=== PATIENT | female | born 1945 | race Caucasian/White ===

== ENCOUNTER 2024-09-10 08:04 | Outpatient (RCR) | payer MEDICARE, SELFPAY ==
[2024-09-10 08:50] VITALS: BP 114/57
[2024-09-10] MEDS: NSS 500 IV (09:00)
[2024-09-10 14:45] VITALS: BP 120/46
== END 2024-09-11 09:49 | disposition home or self-care (01) ==
LOC: OID 08:04
PROVIDERS: ATTENDING PHYSICIAN Nurse Practitioner Adult Health; FAMILY PHYSICIAN Internal Medicine
DX: I35.0 Nonrheumatic aortic (valve) stenosis (principal)
CPT/HCPCS: 75572; 96360; 96361; Q9967

== ENCOUNTER 2024-10-08 07:40 | Outpatient (RCR) | payer MEDICARE, BC, SELFPAY ==
[2024-10-08 08:00] VITALS: BP 116/61
[2024-10-08] MEDS: NSS 500 IV (08:19)
== END 2024-10-09 08:15 | disposition home or self-care (01) ==
LOC: OID 07:40
PROVIDERS: ATTENDING PHYSICIAN Nurse Practitioner Adult Health; FAMILY PHYSICIAN Internal Medicine
DX: I35.0 Nonrheumatic aortic (valve) stenosis (principal)
CPT/HCPCS: 74174; 96360; 96361; Q9967

== ENCOUNTER 2024-10-15 07:09 | Day surgery (SDC) | payer MEDICARE, BC, SELFPAY ==
[2024-10-15] VITALS (20 sets, daily range): BP systolic 111–150; BP diastolic 54–103; BMI 24.6
[2024-10-15 08:03] LABS: Glucose - Point of Care 320 mg/dl (70-99)
[2024-10-15] MEDS: NSS 189 ML IV (08:16)
[2024-10-15 08:55] LABS: Hematocrit 35.6 % (37.0-47.0); Hemoglobin 10.1 g/dL (12.0-16.0); Mean Corp Hgb Conc. 28.4 g/dL (33.0-37.0); Mean Corpuscular Hgb 25.4 pg (27.0-31.0); Mean Corpuscular Volume 89.4 fL (81.0-99.0); Red Blood Cell Count 3.98 10^6/uL (4.20-5.40); Red Cell Dist. Width 20.2 % (11.5-14.5); White Blood Cell Count 4.5 10^3/uL (4.8-10.8)
[2024-10-15 09:25] LABS: Platelet Count 79 10^3/uL (130-400)
--- NOTE | 2024-10-15 11:24 | ITS.CL.CATH ---
[employer] - Catheterization
Cardiac Catheterization
Procedure Report:
CARDIAC CATHETERIZATION REPORT
Date of Procedure: 10/15/2024
Referring: Benjy Cosby D.O.
Indication: Known coronary artery disease, severe low-flow, low gradient aortic valve stenosis, pre-TAVR.
PROCEDURE:
1. Right heart catheterization.
2. Coronary angiography.
3. Bypass angiography.
A total of 33 minutes of procedural/moderate sedation was utilized. An independent medical manager was present to assist with and help manage the patient's level of consciousness and physiologic status.
ACCESS:
1. 6 Burkinan left radial artery using a modified Seldinger technique under ultrasound guidance. Ultrasound image obtained.
2. 5 Burkinan left antecubital vein using a modified Seldinger technique under ultrasound guidance. Ultrasound image obtained.
3. 6 Burkinan right common femoral artery using a modified Seldinger technique with a micropuncture kit under ultrasound guidance. Ultrasound image obtained.
CATHETERS:
1. 5 Burkinan balloon wedge.
2. 5 Burkinan NICOLE.
3. 5 Burkinan JL 4.
4. 5 Burkinan JR4.
HEMODYNAMIC DATA
Weight (kg): 62.6
AO (s/d/x, mmHg): 123/60/87
LV (s/x, mmHg): Not obtained.
PCWP (a/v/x, mmHg): 25/28/21
PA (s/d/x, mmHg): 46/27/33
RV (s/x, mmHg): 46/12
RA (a/v/x, mmHg): 16//12
SVC SvO2 (%): 52.1
IVC SvO2 (%): Not obtained.
RA SvO2 (%): Not obtained.
RV SvO2 (%): Not obtained.
PA SvO2 (%): 50.4
SaO2 (%): 87.8
Hbg (g/dL): 9.2
LUCIA
CO (L/min): 3.31
CI (L/min/m2): 2.00
Thermodilution
CO (L/min): Not performed.
CI (L/min/m2): Not performed.
TPG (mmHg): 12
PVR (Ramirez Units): 3.63
SVR (dynes*seconds*cm^-5): 1813
AVO2 Diff (Volume %): 4.68
AV gradient (x, mmHg): Not obtained.
AV area (cm2): Not obtained.
MV gradient (x, mmHg): Not obtained.
MV area (cm2): Not obtained.
LEFT VENTRICULOGRAPHY: Not performed.
AORTOGRAPHY: Not performed.
CORONARY ANGIOGRAPHY
Dominance: Right.
Left Main: Normal size, bifurcating vessel. There is a distal 70% lesion, immediately proximal to the bifurcation into the LAD and circumflex.
LAD: Normal size vessel giving rise to 2 diagonals. D1 is a large vessel, D2 is a relatively small vessel. There is a hazy, 80% lesion in the mid LAD, immediately proximal to the origin of D2. Competitive flow is visible in the distal LAD and
in the first diagonal.
Ramus: Congenitally absent.
Circumflex: Relatively small, nondominant vessel that gives rise to 1 obtuse marginal arising high off of the circumflex. There is an 80-90% lesion in the ostium of the circumflex. Competitive flow is seen in the obtuse marginal.
RCA: Normal size, dominant vessel. The vessel is chronically totally occluded in its midportion.
BYPASS GRAFT ANGIOGRAPHY
RIZVI to LAD: Normal size graft with end-to-side anastomosis to the mid LAD. There is no evidence of stenosis or graft degeneration.
SVG to D1: Normal size graft with end-to-side anastomosis to the large first diagonal. A patent stent is visible in the ostium of the graft. There is no evidence of further stenosis or graft degeneration.
SVG to OM1: Normal size graft with end-to-side anastomosis to the first obtuse marginal. A patent stent is visible in the ostium of the graft. There is no evidence of further stenosis or graft degeneration.
INTERVENTIONS
None.
Closure Device: Vascular band for the left radial artery, manual pressure for the left antecubital vein and the right common femoral artery.
Radiation dose (mGy): 535.70
DAP (cm2.Gy): 43.3784
Fluoroscopy time (minutes): 4.7
CONCLUSIONS:
1. Right dominant circulation with chronic total occlusion of the mid RCA, a 70% lesion in the distal left main coronary artery, and 80% lesion in the mid LAD and an 80-90% lesion in the ostium of the circumflex, status post prior bypass (patent
RIZVI to LAD, patent SVG to D1, patent SVG to OM1) with prior PCI in the ostium of both vein grafts and no ISR.
2. Moderately elevated filling pressures (PCWP = 21 mmHg at 62.6 kg), likely appropriate given patient's known LV dysfunction.
3. Severe left radial artery calcification and spasm making cardiac catheterization through the left radial artery and possible.
4. Severe low-flow, low gradient with limited myocardial reserve from prior dobutamine challenge.
RECOMMENDATIONS:
1. Expectant management after cardiac catheterization via left radial/antecubital and right common femoral approach.
2. Limited weight bearing on the left wrist for one week.
3. TAVR workup.
Copy to: Benjy Cosby D.O., Adarsh Campbell M.D.
Paxton Ponce DO, FACC, FACP
[2024-10-15 12:03] LABS: ACT-LR - POC 297 Seconds (116-155)
[2024-10-15] MEDS: NOVOLOG vial 4 UNITS SC ×2 (12:37→18:22)
[2024-10-15 12:43] LABS: Glucose - Point of Care 292 mg/dl (70-99)
[2024-10-15 12:52] LABS: ACT-LR - POC 276 Seconds (116-155)
[2024-10-15 13:47] LABS: Glucose - Point of Care 266 mg/dl (70-99)
[2024-10-15 13:49] LABS: ACT-LR - POC 213 Seconds (116-155)
--- NOTE | 2024-10-15 14:34 | PTCARENOTE ---
pt still oozing from rt groin femoral artery sheath insertion site , as well as left brachial veinous site. Kaela lewis lithographic proofer states if no hematoma occurs continue to watch site. left radilal artery dressing site intact. still waiting for ACT to come
below 180 to be pulled per dr. felipe. oozing is to be expected with hi ACT
[2024-10-15 14:49] LABS: ACT-LR - POC 171 Seconds (116-155)
[2024-10-15 14:49] LABS: Glucose - Point of Care 254 mg/dl (70-99)
[2024-10-15] MEDS: NOVOLOG vial 2 UNITS SC (16:08)
[2024-10-15 16:19] LABS: Glucose - Point of Care 236 mg/dl (70-99)
--- NOTE | 2024-10-15 16:30 | PTCARENOTE ---
Vital signs obtained prior to 1624 can not be verified by this user.
[2024-10-15 18:26] LABS: Glucose - Point of Care 286 mg/dl (70-99)
== END 2024-10-15 18:40 | disposition home or self-care (01) ==
LOC: CATH 07:09
PROVIDERS: Nurse Practitioner; ATTENDING PHYSICIAN Internal Medicine Cardiovascular Disease; FAMILY PHYSICIAN Internal Medicine; OTHER PHYSICIAN Student in an Organized Health Care Education/Training Program
DX: I08.3 Combined rheumatic disorders of mitral, aortic and tricuspid valves (principal); I25.10 Atherosclerotic heart disease of native coronary artery without angina pectoris; I25.82 Chronic total occlusion of coronary artery; I11.0 Hypertensive heart disease with heart failure; I50.22 Chronic systolic (congestive) heart failure; E78.5 Hyperlipidemia, unspecified; E11.9 Type 2 diabetes mellitus without complications; I27.20 Pulmonary hypertension, unspecified; Z95.5 Presence of coronary angioplasty implant and graft; Z79.82 Long term (current) use of aspirin; Z79.01 Long term (current) use of anticoagulants; Z79.84 Long term (current) use of oral hypoglycemic drugs; Z79.4 Long term (current) use of insulin
CPT/HCPCS: 99152; 99153; C1769; C1894; 82962; 85027; 93306; 93461; Q9967

== ENCOUNTER → 2024-10-29 14:26 | Outpatient (REF) | payer MEDICARE, BC, SELFPAY | LOC: RAD 14:26 | PROVIDERS: ATTENDING PHYSICIAN Nurse Practitioner Adult Health | DX: M79.602 Pain in left arm (principal) | CPT/HCPCS: 93926 ==

== ENCOUNTER 2024-11-07 11:45 | Inpatient (IN) | payer MEDICARE, BC, SELFPAY ==
[2024-10-29 12:03] VITALS: BMI 25.6
[2024-10-29 13:01] LABS: Urine Albumin 1+ (Neg - Trace); Urine Bilirubin Negative (Negative); Urine Character Clear (Clear); Urine Color Yellow; Urine Glucose 4+ (Negative); Urine Ketone Negative (Negative); Urine Leukocyte 2+ (Negative); Urine Nitrite Positive (Negative); Urine Occult Blood Negative (Negative); Urine Urobilinogen Negative (Neg - 1+)
[2024-10-29 13:09] LABS: Hemoglobin 8.6 g/dL (12.0-16.0); Mean Corp Hgb Conc. 27.7 g/dL (33.0-37.0); Mean Corpuscular Hgb 24.4 pg (27.0-31.0); Mean Corpuscular Volume 88.1 fL (81.0-99.0); Mean Platelet Volume 10.9 fL (7.4-10.4); Platelet Count 104 10^3/uL (130-400); Red Blood Cell Count 3.52 10^6/uL (4.20-5.40)
[2024-10-29 13:10] LABS: INR 1.13; PT 14.8 Sec (11.4-14.6)
[2024-10-29 13:11] LABS: APTT 29.8 Sec (23.4-35.0)
[2024-10-29 13:14] LABS: Urine Bacteria Moderate (Negative); Urine Red Blood Cell 0-2 /HPF (0-2); Urine Squamous Cell >30 /LPF (Few); Urine White Cell 21-25 /HPF (0-5)
[2024-10-29 13:30] LABS: % Eosinophils 0.5 % (0-6); % Immature Granulocytes 3.3 % (0-0.5); % Lymphocytes 15.3 % (20.5-51.1); % Neutrophils 69.9 % (42.2-75.2); Absolute Immature Granulocytes 0.1 10^3/uL (0-0.05); Absolute Lymphocytes 0.6 10^3/uL (1.2-3.4); Absolute Monocytes 0.4 10^3/uL (0.1-0.6); Absolute Neutrophils 2.8 10^3/uL (1.4-6.5)
[2024-10-29 13:34] LABS: Glycohemoglobin (HgbA1c) 6.8 % (4.0-5.6)
[2024-10-29 13:43] LABS: NT-proBNP 13900 pg/ml
[2024-10-29 14:14] LABS: ALT (SGPT) 13 U/L (0-35); AST (SGOT) 20 U/L (14-36); Albumin 3.9 g/dl (3.5-5.0); Alkaline Phosphatase 75 U/L (38-126); Blood Urea Nitrogen 46 mg/dl (7-17); Calcium 9.4 mg/dl (8.4-10.2); Carbon Dioxide 39 mmol/L (22-30); Chloride 90 mmol/L (98-107); Direct Bilirubin 0.4 mg/dl (0.0-0.4); Estimated Creatinine Clearance 21 ml/min; Glucose 171 mg/dl (70-99); Sodium 136 mmol/L (135-145); Total Bilirubin 0.9 mg/dl (0.2-1.3); Total Protein 6.2 g/dl (6.3-8.2); eGFR 26.53
--- NOTE | 2024-10-29 14:31 | CM ---
Chart reviewed. Met with the patient and her in PAT. Patient is independent of ADLS, lives with her in a 2 STH, 5 TORSTEN, ambulates with a RW in the house but uses a wheelchair outside the house. Patient has used [facility] in the past,
but is not current. Reviewed preoperative and postoperative instructions and restriction, along with showering guidelines. Gave patient 2 soaps. Patient is agreeable to a home visit by CT Transitional RN. Plan is for the patient to return home
with CT Transitional RN.
--- NOTE | 2024-10-29 14:43 | HPS.HSE ---
Family Physician
-
Family Physician: Adarsh Campbell
Cardiology: Benjy Cosby
Chief Complaint
-
Pre-operative history and physical for TAVR 11/08/2024
History of Present Illness
Kenya Eubanks is a very pleasant 79-year-old female with known progressive aortic valve stenosis and previous cardiac surgery. Her most recent echocardiogram 10/15/2024 demonstrated a peak/mean gradient of 50/28 mmHg. ABRIL was calculated to be 0.57
and peak velocity was 3.53 m/s in the setting of severely reduced left ventricular ejection fraction of 24% with dilated dimensions in the end-diastolic/end-systolic of 5.8/5.2 cm, respectively. She is status post CABG performed on 09/05/2020 that
included CABG x 3 with RIZVI to LAD, SVG to D1, SVG to ramus intermedius. She had a left heart catheterization from 07/16/2024 revealed SVG to first diagonal has 95% ostial stenosis coronary disease with successful PCI with 3.25 x 12 mm Xience MICAELA.
An invasive mean gradient was not documented. On 10/15/2024 a repeat cath was done which demonstrated -->Right dominant circulation with chronic total occlusion of the mid RCA, a 70% lesion in the distal left main coronary artery, and 80% lesion in
the mid LAD and an 80-90% lesion in the ostium of the circumflex, status post prior bypass (patent RIZVI to LAD, patent SVG to D1, patent SVG to OM1) with prior PCI in the ostium of both vein grafts and no ISR. From a symptomatology standpoint, she
describes fatigue, HARPER, LE edema. In comparison to 1 year ago, she feels worse, her was present and he tells me since May her legs have become edematous and she is not as mobile. Functionally, she requires a walker to get around the
house, and only really goes from the living room to the kitchen. She has significant comorbidities including ischemic cardiomyopathy with prior EF listed in our notes here of 30 to 35%(currently with life vest), COPD, morbidly obese (mostly around
her hips), mitral valve insufficiency and prior NSTEMI.
At evaluation today she feels about the same. She denies chest pain, palpitations, orthopnea or PND. She feels her lower extremity edema is improved since resuming her metolazone. Her HARPER is about the same. She continues to be followed at [facility]
for her lung cancer. We reviewed the risks of TAVR including PPM, bleeding and stroke. Reviewed premedication for her contrast allergy prior to her TAVR on 11/08. She will take first dose of prednisone 50mg at 2100 on 11/07, her second dose will be at
3am on 11/08 and then she will receive her last dose and Benadryl 50mg industrial controller to the cardiac bottle labeler. She is aware she will receive a call on Tue. to confirm arrival time and review instructions. Will plan for a 0730 arrival time.
Medical History
Past Medical History
Past Medical History: Reports CAD, Cancer (Lung cancer-currently being followed at [facility] ), CHF, COPD, HTN, Hypercholesterolemia, Hypothyroidism, NIDDM, CT, Valvular Disease (severe , mild MR, severe TR) and Other (ischemic cardiomyopathy,
gout, neuropathy, CKD, Anemia, Pancytopenia, myelodysplastic syndrome, h/o subarachnoid hemorrhage)
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
Social History
Tobacco: Former Smoker
Alcohol: None
Personal:
Living: With Family
Family History
Family History: Not pertinent
Allergies / Home Medications
Allergies reflects when Allergies were last updated in [employer].
Home Medications with original date entered in [employer]
Allergy/Medication List:
Allergies:
Iodinated contrast
Levetiracetam
Morphine
Medications:
Allopurinol 100 MG Tablet 1 tablet Orally Once a day
Aranesp (Alb Free) SureClick 500 MCG/ML Solution as directed Injection 1 every 3 weeks
Aranesp (Albumin Free)(Darbepoetin Arnulfo) 500 MCG/ML Solution Prefilled Syringe 1 mL Injection
Ascorbic Acid 1000 MG Tablet 1 tablet Orally Once a day
Aspirin 81(Aspirin) 81 MG Tablet Delayed Release 1 tablet Orally Once a day
Atorvastatin Calcium 40 MG Tablet take 1 tablet by mouth once daily
Calcium 600 MG Tablet 1 tablet with meals Orally Twice a day
Clopidogrel Bisulfate 75 MG Tablet take 1 tablet by mouth once daily
Cyanocobalamin 500 MCG Tablet 1 tablet Orally Once a day
Dorzolamide HCl 2 % Solution 1 drop into affected eye Ophthalmic Three times a day
Durezol 0.05 % Emulsion 1 drop into affected eye Ophthalmic Twice a day
Furosemide 80 MG Tablet 1 tablet Orally Once a day
glipiZIDE ER 2.5 MG Tablet Extended Release 24 Hour 1 tablet with breakfast Orally Once a day
Glucosamine 500 MG Capsule 1 capsule with a meal Orally Twice a Day
Glucosamine-Chondroitin 750-600 MG Tablet as directed Orally
Januvia(SITagliptin Phosphate) 100 MG Tablet 1 tablet Orally Once a day
Jardiance(Empagliflozin) 10 MG Tablet 1 tablet Orally Once a day
Ketorolac Tromethamine 0.5 % Solution 1 drop into affected eye as needed Ophthalmic Twice a Day
Lantus(Insulin Glargine) 100 UNIT/ML Solution as directed Subcutaneous 8 units a day
metOLazone 2.5 MG Tablet 1 tablet Orally Two times a Week
Metoprolol Succinate ER 50 MG Tablet Extended Release 24 Hour take 1 tablet by mouth once daily
Nitroglycerin 0.4 MG Tablet Sublingual as directed Sublingual
Pantoprazole Sodium 40 MG Tablet Delayed Release take 1 tablet by mouth once daily
Potassium Chloride ER 10 MEQ Tablet Extended Release 1 tablet with food Orally Take 1 pill once daily only on days when use furosemide.
Reblozyl(Luspatercept-aamt) 25 MG Solution Reconstituted as directed Subcutaneous , Notes to Pharmacist: 84 mg q three weeks
Senokot S(Sennosides-Docusate Sodium) 8.6-50 MG Tablet 1 tablet in the evening as needed Orally Once a day
Synthroid(Levothyroxine Sodium) 50 MCG Tablet 1 tablet in the morning on an empty stomach Orally Once a Day
Vit N67-Nbzsiznwnx-Lnll-Ljxf
Vitamin C 1000 MG Tablet 1 tablet Orally Once a day
Vitamin D (Cholecalciferol) 5000 IU po daily
Vitamin D3 125 MCG (5000 UT) Tablet as directed Orally Once a day
Vitamin E 400 UNIT Capsule 1 capsule Orally Once a day
Zinc 25 MG Tablet 1 tablet Orally Once a day
Review of Systems
-
History Source: Patient
Constitutional: Reports Weight Loss (since restarting metolazone) and Fatigue
EENT: Reports No Symptoms
Respiratory: Reports Other (HARPER)
Cardiac: Reports No Symptoms; Denies Chest Pain, Palpitations or Syncope
Abdomen/GI: Reports No Symptoms; Denies Abdominal Pain, Nausea, Vomiting or Diarrhea
: Reports No Symptoms; Denies Dysuria, Difficulty Voiding or Urgency
Musculoskeletal: Reports No Symptoms
Skin: Reports No Symptoms
Neurological: Reports No Symptoms; Denies Headache or Weakness
Endocrine: Reports No Symptoms
Hematologic/Lymphatic: Reports No Symptoms
Psych: Reports No Symptoms and Calm
Physical Exam
Physical Exam
General: Well Developed, Well Nourished, No Apparent Distress and Comfortable
HEENT: NormoCephalic, Moist mucous membranes and PERRLA
Respiratory: Clear and Non Labored Respirations; No Wheezes, Rales or Rhonchi
Cardiac: S1/S2, Regular Rhythm, Murmur (Grade II/ PANFILO) and Peripheral Edema (bilateral +2 pitting up to knees, left slightly >right)
Breast: Deferred by me
GI: Soft, Non Tender, Non Distended and Normal Bowel Sounds
Rectal: Deferred by Provider
Genito-urinary: Deferred by me
Musculoskeletal: Edema, Left Lower Extremity and Edema, Right Lower Extremity
Skin: Warm and Dry
Neuro: AO x 3 and Nonfocal/grossly intact
Psych: Calm and Intact Judgment/Insight
Laboratory Results
-
10/29/24 12:17
10/29/24 12:17
Laboratory Results
PT 14.8 Sec (11.4-14.6) H 10/29/24 12:17
INR 1.13 10/29/24 12:17
APTT 29.8 Sec (23.4-35.0) 10/29/24 12:17
Total Bilirubin 0.9 mg/dl (0.2-1.3) 10/29/24 12:17
AST 20 U/L (14-36) 10/29/24 12:17
ALT 13 U/L (0-35) 10/29/24 12:17
Alkaline Phosphatase 75 U/L (38-126) 10/29/24 12:17
Data Reviewed
-
Diagnostic Radiology: Report Reviewed by me (Chest x-ray-NAD)
CT Scan: Report Reviewed by me and Discussed with Physician
Medical Tests (Nuc Med, Echo, EKG etc): Report Reviewed by me (echo, EKG-first degree AVB) and Discussed with Physician
Lab Data: Labs Reviewed by me and Discussed with Physician
Old Records: Reviewed (Cardiology and CT surgery consult notes)
Impression/Plan
-
Severe Symptomatic Aortic Stenosis
-plan TF-TAVR
-Continue ASA/Plavix
-POD #1/#30 echocardiogram
-Cardiac rehab consult
CKD
-trend BMP
-consider renal consult this admission
-limit contrast exposure
Anemia
-chronic, trend CBC and transfuse as needed
Diabetes
-Sliding scale insulin as needed
-diabetic diet
-HgbA1C 6.8%
Ischemic Cardiomyopathy
-follow EF, 24% on 10/15/2024
-consider EP consultation and need for permanent ICD, currently on life vest
[2024-11-07] VITALS (10 sets, daily range): BP systolic 104–124; BP diastolic 50–71; BMI 27.2
--- NOTE | 2024-11-07 12:59 | W.PN.UPDATE ---
Update Note
Progress Note Update
Patient admitted for pre-procedure (TAVR 11/08) blood transfusion as Hb 8.1 on PATTs.
See scanned physician office H&P for details
Afebrile, VSS
Conditions present prior to admission: CAD, Lung cancer-currently being followed at [facility] ), CHF, COPD, HTN, Hypercholesterolemia, Hypothyroidism, NIDDM, Valvular Disease (severe , mild MR, severe TR), ischemic cardiomyopathy, gout,
neuropathy, CKD, Anemia, Pancytopenia, myelodysplastic syndrome, h/o subarachnoid hemorrhage, Cholecystectomy, left wrist ORIF, right EMPLOYMENT SPECIALIST endarterectomy with patch angioplasty, CABG x3 -RIZVI-LAD, SVG-D1, SVG to Ramus 09/05/2020, right breast
lumpectomy)
NEURO: AAO x 3. OLSEN +5/5 B/L. Speech clear and appropriate
RESP: Lungs clear B/L, no rales, wheeze, rhonchi
CV: RRR, + S1S2, no S3, S4. III/ crescendo/decrescendo murmur right sternal border second intercostal space, radiating throughout precordium.
ABD: round, soft, nontender, normal active bowel sounds
EXT: +2/4 DP pulses B/L, no LE edema, Left radial cath site tender to touch. Small hematoma noted on US from 10/29. No erythema, ecchymosis
A/P:
# Severe aortic stenosis
- for TAVR 11/08
- NPO after MN
# Myelodysplastic syndrome with chronic anemia
-Admitted today for blood transfusion
- Aranesp q 3 weeks, Vitamin C
# CAD s/p CABG x3 -RIZVI-LAD, SVG-D1, SVG to Ramus 09/05/2020 , PCI of SVG-OM 01/12, PCI of D1 07/15
- continue ASA, Lipitor, Plavix, Toprol XL
# HFrEF (24%)/Ischemic cardiomyopathy
- Lasix 80mg daily
- Metolazone 2.5mg q Wed-Sat
# T2DM (A1C 6.8)
- continue glipizide, Januvia, Jardiance, Lantus>hold 11/08
# Hypothyroidism
- continue Synthroid 50mcg daily
# CKD IV (GRF 26.5/creat 1.7)
- BMP pending today
- trend UO/weight
# Hx E. Coli UTI (10/29/24)-treated
- completed course of Macrobid
# Lung cancer s/p radiation
- stable-treated at [facility]
[2024-11-07 13:28] LABS: Glucose - Point of Care 139 mg/dl (70-99)
[2024-11-07 15:18] LABS: ALT (SGPT) 12 U/L (0-35); AST (SGOT) 20 U/L (14-36); Albumin 3.7 g/dl (3.5-5.0); Alkaline Phosphatase 71 U/L (38-126); Blood Urea Nitrogen 31 mg/dl (7-17); Carbon Dioxide 29 mmol/L (22-30); Chloride 101 mmol/L (98-107); Estimated Creatinine Clearance 28 ml/min; Glucose 124 mg/dl (70-99); Potassium 3.8 mmol/L (3.5-5.1); Sodium 139 mmol/L (135-145); Total Bilirubin 0.9 mg/dl (0.2-1.3); Total Protein 6.1 g/dl (6.3-8.2); eGFR 35.23
[2024-11-07] MEDS: VITAMIN B-12 500 MCG PO (18:29)
[2024-11-07] MEDS: FOLVITE 1 MG PO (18:29)
[2024-11-07] MEDS: LIPITOR 40 MG PO (18:29)
--- NOTE | 2024-11-07 19:32 | PTCARENOTE ---
Received pt as a direct admission from home. Discussed all nursing measures prior to implementation. Orders noted. Will monitor.
[2024-11-07] MEDS: OSCAL CAL 500 500 MG PO (19:54)
[2024-11-07] MEDS: SENOKOT-S PO (19:54)
[2024-11-07] MEDS: ACULAR 0.5% EYE DROPS 1 DROP BOTH EYES (19:54)
[2024-11-07 20:17] LABS: Hematocrit 33.6 % (37.0-47.0); Hemoglobin 9.8 g/dL (12.0-16.0); Mean Corp Hgb Conc. 29.2 g/dL (33.0-37.0); Mean Corpuscular Hgb 24.9 pg (27.0-31.0); Mean Corpuscular Volume 85.5 fL (81.0-99.0); Platelet Count 67 10^3/uL (130-400); Red Blood Cell Count 3.93 10^6/uL (4.20-5.40); Red Cell Dist. Width 18.6 % (11.5-14.5); White Blood Cell Count 3.4 10^3/uL (4.8-10.8)
--- NOTE | 2024-11-07 21:18 | PTCARENOTE ---
Received patient at change of shift. SR with PVCs on the monitor, HR in the 80s. Discussed TAVR prep with pt, pt verbalizes understanding. No complaints from pt at this time, call crowley within reach.
[2024-11-07 22:40] LABS: Glucose - Point of Care 193 mg/dl (70-99)
[2024-11-07] MEDS: NOVOLOG FLEXPEN 1 UNITS SC (23:56)
[2024-11-08] VITALS (31 sets, daily range): BP systolic 104–129; BP diastolic 34–80
[2024-11-08] MEDS: SYNTHROID 50 MCG PO (05:23)
[2024-11-08 07:06] LABS: Glucose - Point of Care 124 mg/dl (70-99)
--- NOTE | 2024-11-08 07:41 | W.CVOR.SURPR ---
CVOR Surgeon Immed Pre Op
-
I have examined this patient prior to performance of the scheduled procedure.
The patient's condition is unchanged from the time of the dictated/written History and
Physical and the patient is able to undergo the scheduled procedure.
high risk TAVR
Partial rescue ok for Shocks/Compressions
No sternotomy due to redo
[2024-11-08] MEDS: PLAVIX 75 MG PO (08:03)
[2024-11-08] MEDS: LOW STRENGTH ASPIRIN 81 MG PO (08:03)
[2024-11-08] MEDS: PROTONIX 40 MG PO (08:03)
[2024-11-08] MEDS: BENADRYL 50 MG PO (08:17)
[2024-11-08] MEDS: DELTASONE 50 MG PO (08:18)
[2024-11-08] MEDS: ACULAR 0.5% EYE DROPS 1 DROP BOTH EYES ×2 (08:24→21:00)
--- NOTE | 2024-11-08 11:13 | CM ---
Addendum entered by Sindi Winchester RN 11/08/24 12:44:
Confirmed CT Transitional RN to see patient once medically stable or discharge. Plan is for the patient to return home with CT Transitional RN.
Original Note:
Chart reviewed. Patient is in the OR today. Patient is independent of ADLS, lives with her in a 2 ST, 5 TORSTEN, ambulates with a RW at home and also has a wheelchair for long distances. Depending on CT Transitional Care RN radius patient
will return home with CT Transitional RN vs VN. CM to follow
[2024-11-08 11:18] LABS: ACT-LR - POC 372 Seconds (116-155)
--- NOTE | 2024-11-08 11:39 | W.PN.CT.SURG ---
CT Surgery Operative Note
-
OPERATIVE REPORT
Preoperative Diagnosis: Severe aortic valve stenosis, symptomatic
Postoperative Diagnosis: Same
Procedure(s) Performed: Right trans femoral TAVR with a 26 mm, nominal, Powell TAVR valve
Date of Procedure: 11/08/2024
Comorbidities:
1. Severe aortic stenosis low-flow low gradient
2. Severe tricuspid valve insufficiency
3. Moderate verging on moderate to severe mitral valve insufficiency
4. Acute on chronic systolic and diastolic congestive heart failure with EF decline to approximately 30% from normal several months prior
5. Coagulopathic with thrombocytopenia
6. Anemic requiring blood transfusion
7. History of cardiac surgery
8. History of PCI to vein grafts
9. Hypertension
10. Hyperlipidemia
11. Diabetes mellitus
12. CKD
13. Mild dysplastic syndrome
14. Subarachnoid hemorrhage
15. History of NSTEMI
Cardiac Surgeon: Artur Zamarripa MD, MS
Long Term Care Pharmacist: Jaime Reddy MD, PhD
Anesthesia: Conscious Sedation and Local Analgesia
EBL: 100cc
Products: none
Implant: 26 mm Powell TAVR valve, SN: [id number]
Indication(s) for Procedures: 79-year-old female with symptomatic severe aortic stenosis, likely low-flow low gradient with new drop in EF. CT-TAVR protocol revealed acceptable anatomy for TAVR access and implantation. She will very likely need to
be readmitted to the hospital given her baseline anemia and mild dysplastic syndrome.
Start time: 1046hrs
Deployment time: 1119hrs
End time: 1135hrs
Radiation Dose (mGy): 298.50
DAP (cm2.Gy): 33.4887
Fluoroscopy time (minutes): 9.9
Contrast volume (ml): 44
TAVR gradient (mmHg): 3mmHg
Heparin Dose: 5000units
Protamine Dose: 40mg
Final Valve Positionin/10
LVEDP: 25 mmHg pre-TAVR deployment
Findings: Preoperative LVEF was 30% and was 30% following TAVR without inotropic support. Following deployment the valve showed a new right bundle branch block. The aortic valve was well seated with only trace detectable PVL and mean gradient
across the new valve was 3mmHg. she had at least moderate mitral valve insufficiency and moderately severe tricuspid valve insufficiency. EF remained the same on no inotropic support however she did have PVCs so is hard to see if there is any
regional wall motion abnormality. No pacing was required and so the temporary pacing wires were taken out. There was successful placement of 26 mm TAVR valve without acute complications.
Access:
1. Device -right common femoral artery, perclose x 2 [+ 8Fr angioseal]
2. Pigtail -left, common femoral artery [+ 6Fr angioseal]
3. Transvenous Pacer -left common femoral vein
Description of Procedure: The patient was taken to the label stamper. Their identity and procedure to be performed were verified and they were positioned supine on the label stamper table. Induction via conscious sedation. The patient was then prepped and
draped from chin to thigh in a sterile fashion. A preoperative time-out was performed with all members of the team present. Arterial and venous access was performed using fluoroscopy and ultrasound guidance with micropuncture and Seldinger
technique. Two perclose devices were used on the device side followed by access to the aorta with a stiff wire to facilitate E-sheath placement. Heparin was given. A stiff straight wire and AL-1 catheter was used to cross the aortic valve. LVEDP
was measured here and found to be 25. The stiff wire was exchanged for an extra stiff coiled tip wire. The valve was prepped and mounted on to the device carrier. An ACT of >250 was achieved. We verified x 3 that the valve was mounted in the
correct orientation with the skirt of the valve directed toward the tip of the device carrier. We advanced the device into the descending thoracic aorta where the valve was them mounted onto the balloon under fluoroscopy. The device was flexed and
advanced over the arch into the root and positioned across the aortic valve. Contrast fluoroscopy was used to visualize the prosthesis across the valve and to guide positioning. A pigtail catheter in the RCC as used as a guide. We aimed to have the
bottom of the device marker at the annular hinge point. The device sheath was pulled back. We performed a quick pre-deployment time out. The pacer was turned on and had capture. Blood pressure fell accordingly, angiography was done to verify the
intended final placement and the valve was deployed with 5 seconds of rapid pacing to nominal volume. The balloon was deflated and the pacer was turned off. We had recovery of vitals. The device carrier was unflexed and positioned back in the
descending thoracic aorta. A transthoracic echocardiogram was performed. The device was removed from the E-Sheath maintaining wire access followed by removal of the E-sheath as we cinched down the perclose devices. There were still some bleeding
from the device side and so we opted to use an 8 Bulgarian Angio-Seal. There was acceptable hemostasis after. The pigtail was withdrawn into the descending/abdominal and completion aortogram with runoff run-off angiography was performed. There was no
stenosis or dissection of bilateral iliofemoral systems. There was acceptable hemostasis of bilateral groins and manual pressure was held following wire removal. Low dose protamine was administered after checking another ACT.
All instrument, sponge, and needle counts were confirmed to be correct x 2 at the end of the operation. The patient was transferred to the cardiac intensive care unit in stable condition.
I, Dr. Artur Zamarripa, was present, scrubbed for, and performed all critical elements of this procedure.
Artur Zamarripa MD
Cardiothoracic Surgeon
[facility]
This operative dictation was created using the [employer] dictation system. Please excuse any grammatical, typographical, or 'sound alike' errors
[2024-11-08] MEDS: NOVOLOG FLEXPEN-MODERATE RESISTANCE 1 UNITS SC ×2 (12:15→17:04)
[2024-11-08 12:21] LABS: Glucose - Point of Care 185 mg/dl (70-99)
--- NOTE | 2024-11-08 12:52 | ITS.CL.PN ---
Circular Knife Cutter Machine - Procedure Note
Procedure
Procedure Note:
TRANSCATHETER AORTIC VALVE REPLACEMENT REPORT
Date of Procedure: 11/08/2024
Referring: Dr. Benjy Cosby MD
Indication: severe symptomatic aortic stenosis
Operators: Arcenio Reddy MD, PhD (interventional cardiology); Dr. Artur Zamarripa MD (CT surgery)
Anesthesia: conscious sedation provided by the anesthesia staff
PROCEDURE: transfemoral, transcatheter aortic valve replacement with a Medtronic Evolute 26 mm Valve
ACCESS:
1. 6F left femoral vein (closure: manual hemostasis)
2. 6F left common femoral artery (closure: Angioseal)
3. 14 F right common femoral artery (closure: Perclose x2)
ULTRASOUND GUIDED VASCULAR ACCESS (left femoral vein): Ultrasound was utilized for vascular access. The vessel was visualized under ultrasound and noted to be patent. An image of the vessel was stored permanently in the patient's medical record.
Under direct ultrasound guidance, vascular access was obtained using a modified Seldinger technique and a 6 Chadian sheath was placed.
ULTRASOUND GUIDED VASCULAR ACCESS (left femoral artery): Ultrasound was utilized for vascular access. The vessel was visualized under ultrasound and noted to be patent. An image of the vessel was stored permanently in the patient's medical record.
Under direct ultrasound guidance, vascular access was obtained using a modified Seldinger technique and a 6 Chadian sheath was placed.
ULTRASOUND GUIDED VASCULAR ACCESS (right femoral artery): Ultrasound was utilized for vascular access. The vessel was visualized under ultrasound and noted to be patent. An image of the vessel was stored permanently in the patient's medical record.
Under direct ultrasound guidance, vascular access was obtained using a modified Seldinger technique and a 8 Chadian sheath was placed.
HEMODYNAMIC DATA
LVEDP 15 mmHg
PROCEDURE NARRATIVE:
The patient was prepped and draped in standard sterile fashion. Conscious sedation was provided by the anesthesia staff. 6F left femoral vein and left common femoral artery access was obtained with ultrasound guidance using micropuncture technique
with verification of appropriate arteriotomy location via hand injection angiography. A temporary venous pacing wire was advanced via the left femoral vein to the right ventricle under fluoroscopic guidance with appropriate capture verified. A 5F
pigtail catheter was advanced via the left common femoral artery and seated in the non-coronary cusp. Angiography was performed to verify the cusp overlap angle.
8F right common femoral artery access was obtained with ultrasound guidance using micropuncture technique with verification of appropriate arteriotomy location via hand injection angiography. The arteriotomy was preclosed with two Perclose sutures
followed by replacement of the 8F sheath. Using an AL1 catheter, a Lunderquist wire was placed in the descending thoracic aorta. Over the Lunderquist, a 14F Cook sheath was placed. Heparin was given. The AL1 catheter was re-advanced through the
sheath to the level of the ascending aorta. The Lunderquist wire was exchanged for a soft tipped straight wire which was used to cross the aortic valve and deposit the AL1 in the LV apex. A J-wire was used to exchange the AL1 for a pigtail catheter
in the LV and LVEDP was measured. The Lunderquist wire was advanced through the pigtail catheter and seated in the LV apex. ACT was checked and confirmed to be >300 seconds.
The valve was inspected under fluoroscopy to confirm lack of infolding above the 4th node. The Cook sheath was removed, and the in-line sheath was advanced over the Lunderquist wire into the descending aorta. The valve was then advanced over the
aortic arch and into the left ventricle. In the cusp overlap view, the valve was slowly deployed to the point of flowering. The patient was paced to adequately lower pulse pressure as the valve was deployed through the rumble strips to 80%. There
was noted to be poor expansion of the valve suggestive of either significant calcification preventing valve expansion or possibly infolding. Thus, the valve was walked back to the descending aorta and removed from the body maintaining wire position
in the LV. The 14F sheath was replaced. The decision was made to perform balloon valvuloplasty prior to valve implantation.
A 18 mm True valvuloplasty balloon was advanced over the Lunderquist wire and into the aortic annulus. Valvuloplasty was performed under rapid pacing with good balloon expansion. The valvuloplasty balloon was removed.
The valve was reloaded and reinspected under fluoroscopy to confirm lack of infolding above the 4th node. The Cook sheath was removed, and the in-line sheath was advanced over the Lunderquist wire into the descending aorta. The valve was then
advanced over the aortic arch and into the left ventricle. In the cusp overlap view, the valve was slowly deployed to the point of flowering. The patient was paced to adequately lower pulse pressure as the valve was deployed through the rumble
strips to 80%. Injection demonstrated a non-coronary cusp implant depth of 3 mm. Angiography performed in an GREENLANDIC projection demonstrated left coronary cusp implant depth of -1 mm. Thus, a partial recapture was performed, the valve was advanced, and
redeployment was then performed with left coronary depth now 3 mm. The decision was made to proceed with full deployment. The Lunderquist wire was partially withdrawn to lift the nose cone of the valve delivery device. In the GREENLANDIC view, the delivery
handle was slowly rotated until both paddles were released from the superior aspect of the valve. The delivery device was withdrawn to the descending aorta and re-assembled. The patient was resuscitated by anesthesia with recovery of adequate blood
pressure. Telemetry demonstrating sinus rhythm. Aortography demonstrated good valve positioning, adequate coronary filling, and no significant aortic valve insufficiency. Echocardiography demonstrated at least mild paravalvular aortic insufficiency.
Mean valve gradient was 14 mmHg. The decision was made to proceed with valve post dilation. The valve delivery system was removed and replaced with a 14F Cook sheath. The Lunderquist valve was advanced across the valve.
A 20 mm True valvuloplasty balloon was advanced over the Lunderquist wire and into the aortic annulus. Valvuloplasty was performed under rapid pacing with good balloon expansion. The valvuloplasty balloon was removed. The valve was noted to display
better expansion on floroscopy. Echo was repeated and demonstrated improvement of the paravalvular leak (now mild) and decreased gradient to 9 mmHg.
The Cook sheath was removed and hemostasis obtained with the two Perclose sutures. Protamine was given. Aortoiliac angiography demonstrated no evidence of iliofemoral dissection/perforation and good runoff below the common femoral artery
bilaterally. The pacemaker and the pigtail catheter were removed. The left femoral artery sheath was removed using a 6F Angioseal. The left femoral venous sheath was removed with manual pressure.
RADIATION: dose to 98 mGy; DAP 33.4 Gy*cm2; fluoroscopy time 9.9 min
CONCLUSION: successful placement of a Evolut Fx Plus 26 mm transcatheter aortic valve via right transfemoral approach with no acute complications
Copy to: Dr. Benjy Cosby MD (sed special education teacher); LLOYD Gagnon (PCP)
Signed: Arcenio Reddy MD, PhD
--- NOTE | 2024-11-08 13:11 | W.PN.UPDATE ---
Update Note
Progress Note Update
Reviewed Ms. Eubanks with the heart team in the preTAVR SDM meeting and confirmed a 26 mm S3 via right transfemoral access. Patient will resume aspirin and Plavix when appropriate post TAVR. LVEDP 25mmHg. #26mm S3 (serial# [id number]) successfully
deployed via right transfemoral access. Post implant MG 3mmHg with trace AI.
--- NOTE | 2024-11-08 13:31 | ITS.CL.PN ---
Addendum entered and electronically signed by Arcenio Reddy MD 11/08/24 13:42:
Correct valve was an Powell ANDREAS S3 Ultra 26 mm Valve
Original Note:
Investment Manager - Procedure Note
Procedure
Procedure Note:
TRANSCATHETER AORTIC VALVE REPLACEMENT REPORT
Date of Procedure: 11/08/2024
Referring: Dr. Benjy Cosby MD
Indication: severe symptomatic low-flow low-gradient aortic stenosis
Operators: Arcenio Reddy MD, PhD (interventional cardiology); Artur Zamarripa MD (CT surgery)
Anesthesia: conscious sedation provided by the anesthesia staff
PROCEDURE: transfemoral, transcatheter aortic valve replacement with a Powell ANDREAS S3 Ultra 29 mm valve
ACCESS:
1. 6F left femoral vein (closure: manual hemostasis)
2. 6F left common femoral artery (closure: Angioseal)
3. 14 F right common femoral artery (closure: Perclose x2)
ULTRASOUND GUIDED VASCULAR ACCESS (left femoral vein): Ultrasound was utilized for vascular access. The vessel was visualized under ultrasound and noted to be patent. An image of the vessel was stored permanently in the patient's medical record.
Under direct ultrasound guidance, vascular access was obtained using a modified Seldinger technique and a 6 Salvadorean sheath was placed.
ULTRASOUND GUIDED VASCULAR ACCESS (left femoral artery): Ultrasound was utilized for vascular access. The vessel was visualized under ultrasound and noted to be patent. An image of the vessel was stored permanently in the patient's medical record.
Under direct ultrasound guidance, vascular access was obtained using a modified Seldinger technique and a 6 Salvadorean sheath was placed.
ULTRASOUND GUIDED VASCULAR ACCESS (right femoral artery): Ultrasound was utilized for vascular access. The vessel was visualized under ultrasound and noted to be patent. An image of the vessel was stored permanently in the patient's medical record.
Under direct ultrasound guidance, vascular access was obtained using a modified Seldinger technique and a 8 Salvadorean sheath was placed.
HEMODYNAMIC DATA
LVEDP 25 mmHg
PROCEDURE NARRATIVE:
The patient was prepped and draped in standard sterile fashion. Conscious sedation was provided by the anesthesia staff. 6F left femoral vein and left common femoral artery access was obtained with ultrasound guidance using micropuncture technique
with verification of appropriate arteriotomy location via hand injection angiography. A temporary venous pacing wire was advanced via the left femoral vein to the right ventricle under fluoroscopic guidance with appropriate capture verified. A 5F
pigtail catheter was advanced via the left common femoral artery and seated in the right coronary cusp. Angiography was performed to verify the co-planar angle.
8F right common femoral artery access was obtained with ultrasound guidance using micropuncture technique with verification of appropriate arteriotomy location via hand injection angiography. The arteriotomy was preclosed with two Perclose sutures
followed by replacement of the 8F sheath. Using an AL1 catheter, an Amplatz Extrastiff wire was placed in the descending thoracic aorta. The 8F sheath was removed and the 14 F Powell E-sheath was inserted over the Extrastiff wire and into the
descending aorta. Heparin was given. The AL1 catheter was re-advanced through the E-sheath to the level of the ascending aorta. The Extrastiff wire was exchanged for a soft tipped straight wire which was used to cross the aortic valve and deposit
the AL1 in the LV apex. A J-wire was used to exchange the AL1 for a pigtail catheter in the LV and LVEDP was measured. An Amplatz Extrastiff wire with curved proximal end was advanced through the pigtail catheter and seated in the LV apex. ACT was
checked and confirmed to be >250 seconds.
The valve was brought to the table with orientation and deployment contrast volume verified. The valve was advanced over the Extrastiff wire and into the descending aorta. The balloon was withdrawn, and the valve was mounted on the balloon. The
valve was advanced over the aortic arch and into the aortic valve annulus. The pusher device was withdrawn. Low volume aortography confirmed valve positioning. The valve was deployed during rapid ventricular pacing. The balloon was walked back to
the descending aorta while leaving the wire in place. The patient was resuscitated by anesthesia with recovery of adequate blood pressure. Telemetry demonstrating sinus rhythm with new bundle branch block. Aortography demonstrated good valve
positioning, adequate coronary filling, and no significant aortic valve insufficiency. Echocardiography confirmed trace aortic insufficiency. Mean valve gradient was 2 mmHg. The valve deployment system was removed.
The Powell E sheath was removed, and hemostasis obtained with the two Perclose sutures. Protamine was given. Aortoiliac angiography demonstrated no evidence of iliofemoral dissection/perforation and good runoff below the common femoral artery
bilaterally. The pacemaker and the pigtail catheter were removed. The left femoral artery sheath was removed using a 6F Angioseal. The left femoral venous sheath was removed with manual pressure.
RADIATION: dose 298 mGy; DAP 33.4 Gy*cm2; fluoroscopy time 9.9 min
CONCLUSION: successful placement of a Powell ANDREAS S3 Ultra 29 mm transcatheter aortic valve via right transfemoral approach with no acute complications
Copy to: Dr. Benjy Cosby MD (parking meter servicer); Dr. Adarsh Campbell MD (PCP)
Signed: Arcenio Reddy MD, PhD
--- NOTE | 2024-11-08 14:00 | PTCARENOTE ---
Pt returned from TAVR. VSS, monitor shows NSR. Right groin site with scant amount sanguinous drainage noted and marked. Left groin with scant amount serosanguineous drainage noted. Call crowley in reach.
--- NOTE | 2024-11-08 14:10 | PTCARENOTE ---
Pt c/o burning in left groin, small lump noted above and to the left of dressing. Ara Marcano notified, at bedside to apply pressure x 30mins. VSS, no active bleeding noted at left groin site.
--- NOTE | 2024-11-08 14:48 | W.PN.UPDATE ---
Update Note
Progress Note Update
Called by RN for concern for L groin hematoma. Pt lying flat in bed s/p R TF TAVR. Left groin dressing with some mild serosanguinous dressing and small skin tear/excoriation under tegaderm dressing. Pt exquisitely tender to light and deep palpation,
describing it as 'burning pain'. Body habitus makes it difficult to discern anatomy, but small to moderate sized hematoma palpated lateral to stick site, deep to ASIS. Manual pressure was held by me for 30 minutes. Pt's blood pressure remained
stable at 128/58, heart rate in 80s--new left bundle on EKG, now looks like QRS more narrow on tele. no additional drainage on dressing, groin feels soft. Continue to monitor closely, discussed with RN.
[2024-11-08] MEDS: TYLENOL 650 MG PO (14:53)
[2024-11-08] MEDS: OSCAL CAL 500 PO (15:44)
[2024-11-08] MEDS: SENOKOT-S PO (15:44)
[2024-11-08] MEDS: VITAMIN C PO (15:45)
[2024-11-08] MEDS: VITAMIN D3 (cholecalciferol) PO (15:45)
[2024-11-08] MEDS: ZYLOPRIM PO (15:45)
[2024-11-08 17:11] LABS: Glucose - Point of Care 185 mg/dl (70-99)
[2024-11-08 18:07] LABS: Hematocrit 31.1 % (37.0-47.0); Hemoglobin 9.2 g/dL (12.0-16.0); Mean Corp Hgb Conc. 29.6 g/dL (33.0-37.0); Mean Corpuscular Hgb 25.1 pg (27.0-31.0); Mean Corpuscular Volume 84.7 fL (81.0-99.0); Mean Platelet Volume 10.5 fL (7.4-10.4); Platelet Count 79 10^3/uL (130-400); Red Blood Cell Count 3.67 10^6/uL (4.20-5.40); Red Cell Dist. Width 18.7 % (11.5-14.5); White Blood Cell Count 5.2 10^3/uL (4.8-10.8)
[2024-11-08] MEDS: VITAMIN B-12 500 MCG PO (18:14)
[2024-11-08] MEDS: LIPITOR 40 MG PO (18:14)
[2024-11-08] MEDS: KCL 10 MEQ PO (18:15)
[2024-11-08] MEDS: FOLVITE 1 MG PO (18:15)
[2024-11-08] MEDS: LASIX 40 MG IV (18:15)
[2024-11-08] MEDS: ANCEF 5 IV (18:16)
[2024-11-08] MEDS: OSCAL CAL 500 500 MG PO (21:00)
[2024-11-08] MEDS: SENOKOT-S 1 TABLET PO (21:00)
[2024-11-08 21:21] LABS: Glucose - Point of Care 400 mg/dl (70-99)
--- NOTE | 2024-11-08 22:17 | PTCARENOTE ---
Addendum entered by Iban Mark RN 11/09/24 01:26:
2 units of insulin ordered and given. will recheck in 1 hour per PA.
Addendum entered by Iban Mark RN 11/09/24 00:38:
glucose on labs- 381. 9 units of insulin ordered and given. repeat BG 2 hours post- 339. Tonia ANTHONY PA updated.
b/l groin sites intact/soft. no new drainage. + doppler pulses. L groin site-skin tear. cleansed and dressed. neuro intact. SR on tele 70s. ambulated to the bathroom independently with no complaints. educated patient to inform RN with any new
changes.
Original Note:
patients blood glucose- 400. updated Tonia STUBBS. labs ordered and sent.
[2024-11-08 22:20] LABS: Blood Urea Nitrogen 35 mg/dl (7-17); Calcium 8.1 mg/dl (8.4-10.2); Carbon Dioxide 24 mmol/L (22-30); Chloride 98 mmol/L (98-107); Estimated Creatinine Clearance 28 ml/min; Glucose 381 mg/dl (70-99); Potassium 3.8 mmol/L (3.5-5.1); Sodium 134 mmol/L (135-145); eGFR 35.23
[2024-11-08] MEDS: NOVOLOG FLEXPEN 9 UNITS SC (22:35)
[2024-11-09] VITALS (14 sets, daily range): BP systolic 107–127; BP diastolic 42–89; PULSE 91; O2SAT 95–96; BMI 28.1
[2024-11-09 00:36] LABS: Glucose - Point of Care 339 mg/dl (70-99)
[2024-11-09] MEDS: NOVOLOG FLEXPEN 2 UNITS SC (01:24)
[2024-11-09 02:35] LABS: Glucose - Point of Care 291 mg/dl (70-99)
[2024-11-09 04:38] LABS: Hematocrit 28.2 % (37.0-47.0); Hemoglobin 8.3 g/dL (12.0-16.0); Mean Corp Hgb Conc. 29.4 g/dL (33.0-37.0); Mean Corpuscular Hgb 24.9 pg (27.0-31.0); Mean Corpuscular Volume 84.4 fL (81.0-99.0); Platelet Count 75 10^3/uL (130-400); Red Blood Cell Count 3.34 10^6/uL (4.20-5.40); Red Cell Dist. Width 18.8 % (11.5-14.5); White Blood Cell Count 3.3 10^3/uL (4.8-10.8)
--- NOTE | 2024-11-09 04:48 | W.PN.CT ---
Today's Communication / Plan
-
-pod #1
-no rhythm issues overnight
-groins are tender b/l, but appear stable, soft with no hematoma b/l
-in nsr 70s-80s. No brook or pauses
-new transient LBBB post TAVR- resolved. Has known 1st degree AVB. Holding Toprol
-diuresed with 40 iv Lasix on 11/08 (LVEDP 25)
-follow Hg (got 1 pRBC preop) and platelets (got 2 unit platelets).
-labs pending
-Echo today
-current meds (ASA, Plavix, Lipitor, Lasix 40 po bid)
-encourage IS, OOB
Assessment / Plan
-
- Severe symptomatic aortic valve stenosis- s/p Right trans femoral TAVR with a 26 mm, nominal, Powell TAVR valve on 11/08/24, pod #1
- Intraop TTE: LVEF was 30% preop and following TAVR without inotropic support. The aortic valve was well seated with only trace detectable PVL and mean gradient across the new valve was 3mmHg. She had at least moderate
mitral valve insufficiency and moderately severe tricuspid valve insufficiency.
- LVEDP: 25 mmHg pre-TAVR deployment- diuresed with 40 iv Lasix
- Severe aortic stenosis low-flow low gradient
- Severe tricuspid valve insufficiency
- Moderate verging on moderate to severe mitral valve insufficiency
- Acute on chronic systolic and diastolic congestive heart failure with EF decline to approximately 30% from normal several months prior
- Coagulopathic with chronic thrombocytopenia
- Chronic anemia requiring blood transfusion
- History of cardiac surgery
- History of PCI to vein grafts
- Hypertension
- Hyperlipidemia
- Diabetes mellitus
- CKD
- Mild dysplastic syndrome
- Subarachnoid hemorrhage
- History of NSTEMI
- Pre-existing 1st degree AVB
- Acute postop transient LBBB- resolved
Discussed patient care with: Nursing and Care Team
Subjective
-
Date of Service: November 09, 2024
Objective Data
-
PT 14.8 Sec (11.4-14.6) H 10/29/24 12:17
INR 1.13 10/29/24 12:17
APTT 29.8 Sec (23.4-35.0) 10/29/24 12:17
Vital Signs
Vital Signs
Temp Pulse Resp BP Pulse Ox
97.9 F 76 18 104/34 99
11/08/24 22:59 11/08/24 18:00 11/08/24 22:59 11/08/24 18:00 11/08/24 22:59
CT Intake/Output/Weight
11/08/24 11/08/24 11/09/24
06:59 18:59 06:59
Intake Total 1756
Balance 1756 175
SaO2: 99
Physical Exam
-
General: Awake and AOx3
Cardiovascular: Regular rate & rhythm, No Murmurs and No Rub
Respiratory: Decreased Breath Sounds (R>L)
Incision: Other (groins are cdi, soft, no hematoma b/l. L groin with mild tenderness with touch (improved from prior))
Extremities: Edema +1 (chronic b/l edema (improved per pt), no redness or warmth to indicate cellulitis b/l, has b/l tenderness with touch)
Abdomen: soft, nontender, + bowel sounds
Data Reviewed
-
Lab Results: Results Reviewed
Medications: Active Meds Reviewed
Chest X-Ray: Report Reviewed and Image Reviewed
ECG: Report Reviewed and Image Reviewed
[2024-11-09 05:04] LABS: Blood Urea Nitrogen 38 mg/dl (7-17); Calcium 8.2 mg/dl (8.4-10.2); Carbon Dioxide 27 mmol/L (22-30); Chloride 102 mmol/L (98-107); Estimated Creatinine Clearance 28 ml/min; Glucose 240 mg/dl (70-99); Potassium 3.6 mmol/L (3.5-5.1); Sodium 137 mmol/L (135-145); eGFR 35.23
[2024-11-09] MEDS: SYNTHROID 50 MCG PO (06:19)
[2024-11-09 07:11] LABS: Glucose - Point of Care 189 mg/dl (70-99)
[2024-11-09] MEDS: LANTUS 0.08 UNITS SC (07:31)
[2024-11-09] MEDS: NOVOLOG FLEXPEN-MODERATE RESISTANCE 1 UNITS SC ×2 (07:32→16:46)
[2024-11-09] MEDS: ACULAR 0.5% EYE DROPS 1 DROP BOTH EYES ×2 (08:09→21:20)
[2024-11-09] MEDS: VITAMIN D3 (cholecalciferol) 25 MCG PO (08:09)
[2024-11-09] MEDS: LASIX 40 MG PO (08:10)
[2024-11-09] MEDS: GLUCOTROL XL (EXTENDED RELEASE) 2.5 MG PO (08:10)
[2024-11-09] MEDS: PROTONIX 40 MG PO (08:10)
[2024-11-09] MEDS: OSCAL CAL 500 500 MG PO ×2 (08:10→21:20)
[2024-11-09] MEDS: LOW STRENGTH ASPIRIN 81 MG PO (08:10)
[2024-11-09] MEDS: VITAMIN C 1000 MG PO (08:10)
[2024-11-09] MEDS: PLAVIX 75 MG PO (08:10)
[2024-11-09] MEDS: ZYLOPRIM 100 MG PO (08:11)
[2024-11-09] MEDS: SENOKOT-S 1 TABLET PO ×2 (08:11→21:20)
--- NOTE | 2024-11-09 10:00 | W.PN.ANS.POP ---
Anesthesia Post Operative
- Anesthesia Post Op Note
Vital Signs Stable-See Nursing Note: Yes
Airway Patent: Yes
Adequate Pain Control: Yes
Change in Mental Status: No
Current Postoperative Nausea & Vomiting: No
Anesthesia Complications: No
General Anesthetic Recall: No
Unplanned Admission: No
Post Op Hydration Adequate: Yes
- -
Pt awake and alert- OOB to chair with no anesthesia related c/o at time of post op visit.
--- NOTE | 2024-11-09 10:29 | CM ---
Chart reviewed. Patient OOB sitting in the chair. Patient independent of ADLS, supportive , 2 STH, 5 TORSTEN, ambulates with a RW and also has a wheelchair for long distances. Plan is for the patient to return home with CT Transitional RN. CM
to follow.
[2024-11-09] MEDS: KCL 20 MEQ PO (11:32)
[2024-11-09] MEDS: NOVOLOG FLEXPEN-MODERATE RESISTANCE 3 UNITS SC (12:11)
[2024-11-09 12:15] LABS: Glucose - Point of Care 248 mg/dl (70-99)
--- NOTE | 2024-11-09 13:29 | W.PN.CD ---
Today's Communication / Plan
-
diuresis after blood transfusion
discharge today vs. tomorrow
Impression / Plan
-
Kenya Eubanks is a 79 year old woman with complex cardiac history including severe s/p TF TAVR (Marilu Ultra 26 mm, Barry/Marilou), severely reduced LVEF (20%), moderate-severe MR and TR, and CAD s/p CABG and PCI to SVGx2.
Interval events / subjective:
Diuresed with 40 IV lasix / (LVEDP 25 mmHg) in the OR
She is status post pre- and post-operative platelet and blood transfusions.
Very brief post op LBBB resolved by time patient reached unit
Had some groin oozing yesterday and required pressure to be held, groin cdi today
Echo today with EF 20-25%, gradients 16/8 mmHg (3 mmHg in the OR), moderate MR, moderate-severe TR, PASP 40
Ambulated and felt well
Long conversion with patient regarding life vest. Ideally would like her to wear for another month to determine EF recovery after valve replacement prior to making decision about ICD.
Assessment
#severe low-flow low-gradient status post TAVR
#severe TR
#moderate-severe MR
#acute on chronic systolic and diastolic congestive heart failure with severely reduced EF
#MDS
#Hypertension
#Hyperlipidemia
#Diabetes mellitus
#CKD
Plan
-diuresis with blood transfusions
-cont. asa/plavix (recent SVG stents), high intensity statin, beta phillip
-outpatient will need close cardiology follow up to address ongoing mixed ICM/NICM and valvular disease
-encourage patient to continue lifevest for now pending EF reassessment in 1 month
-discharge to home today vs. tomorrow
Physical Exam
Vital Signs/Labs
Vital Signs
Temp Pulse Resp BP Pulse Ox
36.6 C 85 18 115/89 98
11/09/24 12:36 11/09/24 11:19 11/09/24 12:36 11/09/24 11:19 11/09/24 12:36
11/08/24 11/09/24 11/10/24
06:59 06:59 06:59
Actual Weight 69.6 kg 71.9 kg
11/09/24 03:36
11/09/24 03:36
PT 14.8 Sec (11.4-14.6) H 10/29/24 12:17
INR 1.13 10/29/24 12:17
APTT 29.8 Sec (23.4-35.0) 10/29/24 12:17
10/29/24
12:17
Cia-M-Bklhtdbxawb Pept [id number]
Physical Exam
Constitutional: No acute distress
Cardiovascular: Rhythm & rate is regular
Respiratory: Respiratory effort normal
Neuro/Psych: AO x 3
Other: Cath Site
cdi
Data Reviewed
-
Date of Service: November 09, 2024
Medical Decision Making: Reviewed Test Results
EKG: Tracing Personally Visualized and interpreted
Echo: Tracing Personally Visualized and interpreted
X-Ray/CT/US/MRI/NUC/PET: Image Personally Visualized and interpreted
Labs: Labs Reviewed by me
[2024-11-09] MEDS: LASIX 40 MG IV (13:52)
[2024-11-09 16:37] LABS: Glucose - Point of Care 174 mg/dl (70-99)
[2024-11-09] MEDS: VITAMIN B-12 500 MCG PO (16:45)
[2024-11-09] MEDS: LIPITOR 40 MG PO (16:45)
[2024-11-09] MEDS: FOLVITE 1 MG PO (16:45)
--- NOTE | 2024-11-09 17:00 | PTCARENOTE ---
BL groin dressings removed, puncture sites soft, no bleeding or hematomas noted. Previously obtained skin tears cleansed with saline, dry gauze applied.
--- NOTE | 2024-11-09 19:50 | PTCARENOTE ---
Assumed care of pt from prev nsg shift; Pt AAOx3 w/no c/o CP or SOB. Pt's VSS w/HR in the 90's & BP 121/49. Pt is SR w/1st deg AVB on telemetry monitoring. Pt w/bilat groin sites ZOILA w/no signs or symptoms of bleeding or hematoma. Pt does have some
excoriation above groin sites under her abd folds. dry, sterile gauze in place. Pt reported some 'mild stinging' at this site. Gauze removed & area cleansed w/NSS, dried w/gauze & non-adhesive foam dressings applied. Pt w/call crowley within reach &
plan of care ongoing.
[2024-11-09 22:13] LABS: Glucose - Point of Care 158 mg/dl (70-99)
[2024-11-10 04:53] VITALS: BP 130/60
[2024-11-10] MEDS: SYNTHROID 50 MCG PO (05:15)
[2024-11-10] MEDS: TYLENOL 650 MG PO (05:15)
[2024-11-10 05:37] LABS: Hematocrit 32.5 % (37.0-47.0); Hemoglobin 9.7 g/dL (12.0-16.0); Mean Corp Hgb Conc. 29.8 g/dL (33.0-37.0); Mean Corpuscular Hgb 25.2 pg (27.0-31.0); Mean Corpuscular Volume 84.4 fL (81.0-99.0); Platelet Count 61 10^3/uL (130-400); Red Blood Cell Count 3.85 10^6/uL (4.20-5.40); Red Cell Dist. Width 19.2 % (11.5-14.5); White Blood Cell Count 4.3 10^3/uL (4.8-10.8)
[2024-11-10 05:47] LABS: Blood Urea Nitrogen 41 mg/dl (7-17); Calcium 8.8 mg/dl (8.4-10.2); Carbon Dioxide 29 mmol/L (22-30); Chloride 103 mmol/L (98-107); Estimated Creatinine Clearance 33 ml/min; Glucose 85 mg/dl (70-99); Magnesium 1.4 mg/dl (1.6-2.3); Potassium 3.7 mmol/L (3.5-5.1); Sodium 138 mmol/L (135-145); eGFR 41.83
[2024-11-10 06:00] VITALS: BMI 28.0
[2024-11-10 06:37] VITALS: BP 109/53
[2024-11-10 06:37] LABS: Glucose - Point of Care 92 mg/dl (70-99)
[2024-11-10] MEDS: NOVOLOG FLEXPEN-MODERATE RESISTANCE SC (07:35)
[2024-11-10] MEDS: ZYLOPRIM 100 MG PO (07:51)
[2024-11-10] MEDS: LOW STRENGTH ASPIRIN 81 MG PO (07:51)
[2024-11-10] MEDS: GLUCOTROL XL (EXTENDED RELEASE) 2.5 MG PO (07:51)
[2024-11-10] MEDS: SENOKOT-S 1 TABLET PO (07:51)
[2024-11-10] MEDS: VITAMIN D3 (cholecalciferol) 25 MCG PO (07:51)
[2024-11-10] MEDS: PLAVIX 75 MG PO (07:51)
[2024-11-10] MEDS: VITAMIN C 1000 MG PO (07:51)
[2024-11-10] MEDS: OSCAL CAL 500 500 MG PO (07:51)
[2024-11-10] MEDS: PROTONIX 40 MG PO (07:51)
[2024-11-10] MEDS: LASIX 40 MG PO (07:51)
[2024-11-10] MEDS: ACULAR 0.5% EYE DROPS 1 DROP BOTH EYES (07:53)
[2024-11-10] MEDS: FLUSH (NSS) 1 FLUSH IV (07:53)
--- NOTE | 2024-11-10 08:05 | PTCARENOTE ---
The patient is aaox3, vital signs are stable. NSR with PVCs are noted on the monitor. Her right groin puncture site is ZOILA. She does have a silicone boarder foam over her skin tear just above her right groin puncture site. Her left groin puncture
site and skin tear has a dry gauze lying over top. BL pedal pulses are weak to palpation. She is tender at both groin sites. Her old left wrist cath puncture site has a silicone boarder foam for comfort as it is benzol still operator to touch. She has a
positive left radial pules. She has no complaints and is ambulatory without difficulty in her room using a RW.
--- NOTE | 2024-11-10 08:16 | W.PN.CT ---
Today's Communication / Plan
-
-pod #2
-no issues overnight
-tele: nsr, occasional PVCs. No brook or pauses
-groins are tender b/l, but appear soft, stable, no hematomas b/l
-Echo 11/09: Severely reduced left ventricular systolic function. Left ventricular ejection fraction is 20-25%. 26mm Powell TAVR- Peak gradient 16mmHg/Mean gradient 8mmHg. Trace aortic regurgitation. Moderate mitral regurgitation. Moderate/severe
tricuspid regurgitation. Mildly elevated PASP. Estimated pulmonary artery pressure of 40 mmHg assuming a right atrial pressure of 3 mmHg. Normal pericardium without effusion. Prior TAVR gradients were 4/3 mmHg
-Toprol has been on hold d/t new LBBB (resolved)- ? resuming at lower dose. Will discuss with Cardiology
-currently, on ASA, Plavix, Lipitor
-noted plans to continue life vest
-possible d/c soon
Assessment / Plan
-
- Severe symptomatic aortic valve stenosis- s/p Right trans femoral TAVR with a 26 mm, nominal, Powell TAVR valve on 11/08/24, pod #2
- Intraop TTE: LVEF was 30% preop and following TAVR without inotropic support. The aortic valve was well seated with only trace detectable PVL and mean gradient across the new valve was 3mmHg. She had at least moderate
mitral valve insufficiency and moderately severe tricuspid valve insufficiency.
- LVEDP: 25 mmHg pre-TAVR deployment- diuresed with 40 iv Lasix
- Severe aortic stenosis low-flow low gradient
- Severe tricuspid valve insufficiency
- Moderate verging on moderate to severe mitral valve insufficiency
- Acute on chronic systolic and diastolic congestive heart failure with EF decline to approximately 30% from normal several months prior
- Coagulopathic with chronic thrombocytopenia
- Chronic anemia requiring blood transfusion
- History of cardiac surgery
- History of PCI to vein grafts
- Hypertension
- Hyperlipidemia
- Diabetes mellitus
- CKD
- Mild dysplastic syndrome
- Subarachnoid hemorrhage
- History of NSTEMI
- Pre-existing 1st degree AVB
- Acute postop transient LBBB- resolved
Discussed patient care with: Nursing and Care Team
Subjective
-
Date of Service: November 10, 2024
Objective Data
-
Lab Results
11/10/24 05:08
11/10/24 05:08
PT 14.8 Sec (11.4-14.6) H 10/29/24 12:17
INR 1.13 10/29/24 12:17
APTT 29.8 Sec (23.4-35.0) 10/29/24 12:17
Vital Signs
Vital Signs
Temp Pulse Resp BP Pulse Ox
98.4 F 99 18 109/53 98
11/10/24 06:53 11/10/24 07:00 11/10/24 06:53 11/10/24 06:37 11/10/24 06:53
CT Intake/Output/Weight
11/09/24 11/10/24 11/10/24
18:59 06:59 18:59
Intake Total 250 / 1210 960 / 1210
Balance 250 / 1210 960 / 1210
SaO2: 98
Physical Exam
-
General: Awake and AOx3
Cardiovascular: Regular rate & rhythm, No Murmurs and No Rub
Respiratory: Clear and Decreased Breath Sounds
Incision: Other (groins are soft b/l, very tender to touch b/l, no hematoma b/l)
Extremities: Edema +1 (legs are tender to touch)
Data Reviewed
-
Lab Results: Results Reviewed
Medications: Active Meds Reviewed
Chest X-Ray: Report Reviewed and Image Reviewed
ECG: Report Reviewed and Image Reviewed
[2024-11-10] MEDS: LANTUS 0.08 UNITS SC (08:48)
--- NOTE | 2024-11-10 09:47 | W.PN.CD ---
Today's Communication / Plan
-
discharge planning with Life Vest
resume Toprol XL
Impression / Plan
-
Kenya Eubanks is a 79 year old woman with complex cardiac history including severe s/p TF TAVR (Marilu Ultra 26 mm, Barry/Marilou), severely reduced LVEF (20%), moderate-severe MR and TR, and CAD s/p CABG and PCI to SVGx2.
TAVR events
Diuresed with 40 IV lasix 3/20 (LVEDP 25 mmHg) in the OR
She is status post pre- and post-operative platelet and blood transfusions.
Very brief post op LBBB resolved by time patient reached unit
Echo post with EF 20-25%, gradients 16/8 mmHg (3 mmHg in the OR), moderate MR, moderate-severe TR, PASP 40
She will continue Life Vest.
Assessment
#severe low-flow low-gradient status post TAVR
#severe TR
#moderate-severe MR
#acute on chronic systolic and diastolic congestive heart failure with severely reduced EF
#MDS
#Hypertension
#Hyperlipidemia
#Diabetes mellitus
#CKD
Plan
-discharge planning with Life Vest
-resume Toprol XL
-PO lasix
-DAPT
Physical Exam
Vital Signs/Labs
Vital Signs
Temp Pulse Resp BP Pulse Ox
98.4 F 99 18 109/53 98
11/10/24 06:53 11/10/24 07:00 11/10/24 06:53 11/10/24 06:37 11/10/24 08:24
11/09/24 11/10/24 11/11/24
06:59 06:59 06:59
Actual Weight 71.9 kg 71.6 kg
11/10/24 05:08
11/10/24 05:08
PT 14.8 Sec (11.4-14.6) H 03/10/25 12:17
INR 1.13 10/29/24 12:17
APTT 29.8 Sec (23.4-35.0) 10/29/24 12:17
Magnesium 1.4 mg/dl (1.6-2.3) L 11/10/24 05:08
10/29/24
12:17
Swa-H-Hmcolbzohim Pept [id number]
Physical Exam
Constitutional: No acute distress and Comfortable
EENT: Moist mucous membranes
Cardiovascular: Rhythm & rate is regular, JVD pressure is normal, Systolic murmur absent and Pedal edema present
Respiratory: Respiratory effort normal and Lungs clear to auscul.
Neuro/Psych: AO x 3
Data Reviewed
-
Date of Service: November 10, 2024
EKG: Other (Tele: SR 90s)
Labs: Labs Reviewed by me
[2024-11-10 11:54] VITALS: BP 102/52
[2024-11-10 12:01] LABS: Glucose - Point of Care 245 mg/dl (70-99)
--- NOTE | 2024-11-10 12:05 | W.DCSUMMARY ---
Discharge Summary
Discharge Data
Date of Admission: 11/07/24
Date of Discharge: 11/10/24
-
Pending Results: No
Hospital Course
Primary care physician:
Outpatient land lease information clerk:
Inpatient consultants:
Procedures:
1.
Primary Diagnosis:
1. Severe aortic stenosis low-flow low gradient
2. Severe tricuspid valve insufficiency
3. Moderate verging on moderate to severe mitral valve insufficiency
4. Acute on chronic systolic and diastolic congestive heart failure with EF decline to approximately 30% from normal several months prior
5. Coagulopathic with thrombocytopenia
6. Anemic requiring blood transfusion
7. History of cardiac surgery
8. History of PCI to vein grafts
9. Hypertension
10. Hyperlipidemia
11. Diabetes mellitus
12. CKD
13. Mild dysplastic syndrome
14. Subarachnoid hemorrhage
15. History of NSTEMI
Secondary Diagnoses:
1. Acute postop transient LBBB- resolved
HPI: This is a 79-year-old female with known progressive aortic valve stenosis and previous coronary artery bypass surgery. Her most recent echocardiogram demonstrated a peak/mean gradient of 32/17.5 mmHg, respectively. Aortic valve area was
calculated to be 1.2 and peak velocity was 2.8 m/s in the setting of severely reduced left ventricular ejection fraction of 20 to 25%. As mentioned she had a CABG performed in 2020 that included RIZVI to the LAD, saphenous vein graft to diagonal 1,
saphenous vein graft to ramus. She has since had drug-eluting stents to the vein graft to the first diagonal. She since reports symptoms of fatigue, dyspnea on exertion, lower extremity edema which is progressively getting worse. Given her age
and risk factors it was recommended that she undergo transcatheter aortic valve replacement. CT surgery was consulted for evaluation.
Hospital course: Due to the patient's chronic anemia she was admitted on November 07 and transfused 1 unit of packed red blood cells. She also was found to have a E. coli urinary tract infection which was treated with Macrobid. She was taken to the
[facility] on November 08 and underwent right transfemoral TAVR with a 26 mm Powell valve, she did receive 1 unit of platelets during the procedure. Postoperatively she had a new left bundle branch block on EKG and she had bleeding from her left groin
that required manual pressure and the transfusion of 1 unit of platelets. The groin bleeding resolved. Cardiology was in on consult and recommended a LifeVest which she has at home. Patient was urged to wear this continuously. By postoperative
day 2 her left bundle branch block had resolved her echo was acceptable and it was felt that she could safely be discharged home. Of note her platelet count was 61,000 on the morning of discharge(she presented with a pale lately count of 67,000).
A prescription was given for a CBC to be drawn on November 12 with the results faxed to our office. She was given explicit instructions on wound care, diet, and physical activity.
Home medication changes:
No medications were changed from her prior regimen.
Discharge Plan
-
Patient Disposition: Home (Routine Discharge)
Discharge Diagnosis/Procedures: TF-TAVR
Condition: Good
Diet: Low Cholesterol, 2 Gram Sodium and Diabetic, Carb Controlled
Activity: As tolerated
Driving Restrictions: No driving for 1 week
Bathing Restrictions: OK to Shower
Blood Work: CBC on 11/12/24
Others Tests: 30 day follow up echocardiogram: 12/11/2024 1:20pm in Dr. Cosby's office
Other Services: Cardiac Rehab
Wound Care: Please do not apply lotions, creams or powders to groin areas. Please monitor for increased redness, swelling, pain or drainage. Notify your doctor if any occur.
Specialty Instructions: Weigh Daily- Call MD for wt gain/loss 3 lbs overnight/5 lbs in 1 week
Activity Restrictions/Additional Instructions:
Please call [facility] to schedule Cardiac Rehab [phone].
Referrals:
CT Transitional Care Nurse [Outside] (The Cardiothoracic Transitional Care Nurse will call you to set up a visit in 1-2 days.)
Adarsh Campbell MD [Family Provider] -
Benjy Cosby DO [Active] - 12/17/24 12:40 pm
Prescriptions:
New
acetaminophen 325 mg Tablet
650 mg PO Q4HPRN PRN (Reason: MARTIN, mild pain, or fever >101F) Qty: 0 0RF
Continued
ascorbic acid (vitamin C) [Vitamin C] 1,000 MG tablet
500 mg PO DAILY
aspirin 81 MG tablet,chewable
81 mg PO DAILY
cholecalciferol (vitamin D3) [Vitamin D3] 1,000 UNIT capsule
25 mcg PO DAILY
Glucosamine Sulf-Chondroitin 1 EACH capsule
1,200 mg BID
ketorolac 1 DROP drops
1 drp BOTH EYES BID
difluprednate [Durezol] 0.05 % Drops
2 drp BOTH EYES TID Qty: 0
atorvastatin 40 MG tablet
40 mg PO QPM 0RF
clopidogrel 75 MG tablet
75 mg PO DAILY 0RF
pantoprazole 40 MG tablet,delayed release (DR/EC)
40 mg PO DAILY 0RF
allopurinol 100 mg Tablet
100 mg PO DAILY
levothyroxine [Synthroid] 50 mcg Tablet
50 mcg PO DAILY
insulin glargine [Lantus U-100 Insulin] 100 unit/mL Solution
8 unit SC DAILY
potassium chloride [Klor-Con M20] 20 MEQ tablet,ER particles/crystals
10 meq PO DAILY
metoprolol succinate 25 MG tablet extended release 24 hr
50 mg PO DAILY
Reblozyl 75 mg Recon Soln
84 mg SC Q3W
Aranesp (in polysorbate) 500 mcg/mL Syringe
500 mcg SC Q3W
furosemide 40 mg Tablet
40 mg PO BID
calcium 500 mg Tablet
1,000 mg PO DAILY
glipizide 2.5 mg Tablet Extended Release 24hr
2.5 mg PO DAILY
zinc 25 mg Tablet
25 mg PO DAILY
vitamin I25-dujpgnk B1
1 PO QPM
senna-docusate sodium Tablet
1 tab PO BID
Discharge Orders:
Discharge Patient (As Directed); Ordered 11/10/24
Ordered By: Benjy Carmona
Care Plan Goals
Care Plan Goals:
Problem: Readiness for enhanced knowledge related to diagnosis and treatment plan
Goal: Understand your diagnosis and treatment plan needs, including medications if applicable.
Instructions: Know your diagnosis, underlying causes and treatment plan options, including medications if applicable. Consult with your health care team to learn about your diagnosis and treatment plan, including medications if applicable.
Discharge Date and Time
Print Language: TUNISIAN
[2024-11-10] MEDS: NOVOLOG FLEXPEN-MODERATE RESISTANCE 3 UNITS SC (12:12)
[2024-11-10 12:28] VITALS: BMI 28.0
== END 2024-11-10 14:59 | disposition home or self-care (01) | DRG 266 ==
LOC: IVU 11:45
PROVIDERS: Clinical Nurse Specialist Acute Care; Nurse Practitioner; Physician Assistant Medical; ADMITTING PHYSICIAN Thoracic Surgery (Cardiothoracic Vascular Surgery); CONSULT PHYSICIAN Internal Medicine; FAMILY PHYSICIAN Internal Medicine
PROC: 30233N1 Transfusion of Nonautologous Red Blood Cells into Peripheral Vein, Percutaneous Approach (ICD-10-PCS; 2024-11-07)
PROC: 02RF38Z Replacement of Aortic Valve with Zooplastic Tissue, Percutaneous Approach (ICD-10-PCS; 2024-11-08)
PROC: 30233R1 Transfusion of Nonautologous Platelets into Peripheral Vein, Percutaneous Approach (ICD-10-PCS; 2024-11-08)
DX: I35.0 Nonrheumatic aortic (valve) stenosis (principal); Z00.6 Encounter for examination for normal comparison and control in clinical research program; I50.43 Acute on chronic combined systolic (congestive) and diastolic (congestive) heart failure; I13.0 Hypertensive heart and chronic kidney disease with heart failure and stage 1 through stage 4 chronic kidney disease, or unspecified chronic kidney disease; N18.4 Chronic kidney disease, stage 4 (severe); D68.9 Coagulation defect, unspecified; I45.2 Bifascicular block; N39.0 Urinary tract infection, site not specified; D61.818 Other pancytopenia; I25.10 Atherosclerotic heart disease of native coronary artery without angina pectoris; I25.5 Ischemic cardiomyopathy; J44.9 Chronic obstructive pulmonary disease, unspecified; E66.01 Morbid (severe) obesity due to excess calories; I34.0 Nonrheumatic mitral (valve) insufficiency; E78.00 Pure hypercholesterolemia, unspecified; E03.9 Hypothyroidism, unspecified; I36.1 Nonrheumatic tricuspid (valve) insufficiency; E11.40 Type 2 diabetes mellitus with diabetic neuropathy, unspecified; M10.9 Gout, unspecified; E11.22 Type 2 diabetes mellitus with diabetic chronic kidney disease; D46.9 Myelodysplastic syndrome, unspecified; B96.20 Unspecified Escherichia coli [E. coli] as the cause of diseases classified elsewhere; I25.82 Chronic total occlusion of coronary artery; I25.2 Old myocardial infarction; Z79.4 Long term (current) use of insulin; Z79.82 Long term (current) use of aspirin; Z79.899 Other long term (current) drug therapy; Z85.118 Personal history of other malignant neoplasm of bronchus and lung; Z86.73 Personal history of transient ischemic attack (TIA), and cerebral infarction without residual deficits; Z87.891 Personal history of nicotine dependence; Z92.3 Personal history of irradiation; Z95.1 Presence of aortocoronary bypass graft
CPT/HCPCS: 93308; 33361; 36415; 71045; 71046; 76937; 80048; 80053; 81003; 81015; 82248; 82962; 83036; 83735; 83880; 85025; 85027; 85347; 85610; 85730; 86850; 86900; 86901; 86920; 87070; 87077; 87086; 87186; 93005; 93321; 93325; C1760; C1769; C1894; P9016; P9073; Q9967

== ENCOUNTER 2025-06-10 21:16 | Inpatient (IN) | payer MEDICARE, BC, SELFPAY ==
[2025-06-10] VITALS (9 sets, daily range): BP systolic 105–139; BP diastolic 43–68; BMI 27.6; BMI 27.7
--- NOTE | 2025-06-10 18:48 | ED.GENMED ---
History of Present Illness
<Arabella Burgos PA-C - Last Filed: 06/11/25 02:16>
General
Chief Complaint: AICD Problem
Source: patient
Exam Limitations: none
Time Seen by Provider: 06/10/25 18:15
Nursing documentation reviewed up to this point in time: agreed with
History of Present Illness
History of Present Illness:
Patient is an 80-year-old female with history congestive heart failure, coronary artery disease s/p triple CABG, hypertension, hyperlipidemia, insulin-dependent diabetes who presents to the emergency department concerns of ICD site infection.
Patient had an ICD placed at [facility] on February 28. She has been keeping the site covered with nonstick gauze and tape. Patient had a regular scheduled follow-up last Tuesday where the PA became concerned that there may be a developing
infection. She was advised to use Neosporin 3 times a day over the weekend. Today, based on appearance, she was sent to the emergency department for further evaluation of possible ICD infection.
Patient denies any fever, chills, or pain around site. She denies any chest pain or shortness of breath.
Patient has no history of allergy to Neosporin. Patient apparently is scheduled for an appointment Dr. Edmonds this coming .
Review of Systems
<Arabella Burgos PA-C - Last Filed: 06/11/25 02:16>
Review of Systems
Allergies reviewed?: Yes
All Other Systems: ROS reviewed and negative except as documented in HPI and ROS
Phy Exam
<Arabella Burgos PA-C - Last Filed: 06/11/25 02:16>
Physical Exam
Physical Exam:
Vitals: Patient's vital signs are stable. Afebrile
General: Patient is very well appearing, no acute distress. Nontoxic appearing
Skin: Healing scar on left upper chest wall with surrounding erythema with small amount of purulent drainage and scab at lateral aspect
Head: Normocephalic, atraumatic
Eyes: Sclera nonicteric.
Throat: Protecting airway
Neck: Normal ROM, no cervical spine tenderness, no meningismus
Cardiac: Regular rate and rhythm, no murmurs.
Pulm: Normal respiratory effort, no wheezes, rales, rhonchi heard on exam
Abdomen: Abdomen soft and nontender.
Extremities: No evidence of cyanosis or edema. 2+ palpable DP pulses bilaterally
Neuro: AAOx3. Grossly intact.
Psychiatric: Normal affect.
Course
<Arabella Burgos PA-C - Last Filed: 06/11/25 02:16>
Orders/Labs/Results
Orders:
Orders
06/10/25 14:23
ECG [Electrocardiogram (*1)] Urgent
Reason for Study: Other
Other Reason for Exam: pacer problem
EKG- Treatment ONCE
06/10/25 18:38
Complete Blood Count/With Diff Urgent
Comprehensive Metabolic Panel Urgent
Lactic Acid Urgent
Magnesium Urgent
Wound Culture [Wound/Abscess/Other Culture] Urgent
MIKE Source: Surgical Wound
Specimen Description:
Date Specimen was Collected: 06/10/25
Time Specimen was Collected: 18:36
Comment: [facility]
06/10/25 19:31
Add On- LAB Urgent
Tests Added?: magnesium
06/10/25 19:40
Potassium Chloride [KCl] 40 meq PO NOW STA
06/10/25 19:41
CeFAZolin 1 GRAM [Ancef] 1 gram in 5 ml IV NOW
06/10/25 19:42
0.9% Sodium Chloride 500 ml [Nss] 500 ml IV BOLUS
06/10/25 19:55
CeFAZolin 1 GRAM [Ancef] 1 gram in 5 ml IV NOW
06/10/25 19:56
Potassium Chloride [KCl] 40 meq 0.9% Sodium Chloride 250 ml [Nss] 250 ml IV NOW
06/10/25 20:51
Admit/Transfer Patient As Directed
Co-Sign Provider:
Level of Care: Inpatient admission
Assign to:: Telemetry
Physician / Group: eliza
Diagnosis: ICD infection
Reason for Telemetry: Other
Other Reason for Telemetry: hypokalemia
Date to Stop Telemetry: 06/12/25
Time to Stop Telemetry: 11:00
Reason for Hospitalization: ICD infection
Expected length of stay greater than two midnights?: Yes
ELOS- Estimated Length of Stay in days: 3
I certify the patient meets the requirements for IP care: Yes
PRN Pain Medication Management As Directed
May give lesser potent ordered pain med per pt: Yes
preference::
Protocol:: Medication orders for pain may be administered in a
manner that supports deferring to patient preference
when the pt is:
- Requesting an ordered lesser potent pain medication.
Least to most potent pain medications are defined
as: acetaminophen < NSAID < tramadol < opioids
(morphine, oxycodone, hydromorphone).
- Requesting a lesser dose of the same medication IF
ORDERED.
- Requesting a less intrusive route of administration
if both routes are prescribed by the provider (PO <
IV).
06/10/25 20:53
Code Status As Directed
Resuscitation Status: Full Code
06/10/25 22:22
Blood Culture Q30M
MIKE Source: Blood/Venous
Specimen Description:
Blood Culture Q30M
MIKE Source: Blood/Venous
Specimen Description:
06/10/25 23:33
Dextrose 50%-Water [Dextrose 50% Syringe] 12.5 grams IV [id number] PRN
Glucagon [GlucaGen] 1 mg IM PRN PRN
06/10/25 23:33
INFECTIOUS DISEASE CONSULT Routine
Consulting Provider: Jasmyn Lazo
Was physician already notified: Yes
WOUND/OSTOMY CONSULT Routine
Reason for Consult: right chest wall icd wound
Activity As Directed
Activity Level: Out of Bed-Early Mobility
Bedside Glucose Monitoring As Directed
Frequency: AC&HS
Additional Instructions:: Change to q6h if pt on TPN, tube feeding or not eating
Intake/ Output As Directed
Frequency: Per unit guidelines
Venous Foot Pumps As Directed
Location: Bilateral feet
Vital Signs As Directed
Frequency: Per unit guidelines
Weight As Directed
Frequency: Daily
DX Deep Vein Thrombosis Video Routine
06/11/25 Breakfast
NPO
Allow oral meds: Yes
Allow clear liquids: No
NPO for procedure after (time): 06/11/2025 0000
Basic Metabolic Panel IN AM
Complete Blood Count/No Diff IN AM
Glycohemoglobin (HgbA1c) IN AM
Levothyroxine [Synthroid] 50 mcg PO DAILY @ 0600
06/11/25 07:30
Insulin Aspart Corrective Low [Novolog Flexpen-Low Resistance] See Protocol SC AC
06/11/25 08:00
Allopurinol [Zyloprim] 100 mg PO BID
Aspirin Chewable [Low Strength Aspirin] 81 mg PO DAILY
CeFAZolin 2 GRAM [Ancef] 2 grams in 10 ml IV Q12H
Clopidogrel Bisulfate [Plavix] 75 mg PO DAILY
Docusate W/Senna [Senokot-S] 1 tablet PO BID
Metoprolol Xl [Toprol Xl] 50 mg PO DAILY
Potassium Chloride [KCl] 10 meq PO DAILY
ketorolac 1 drop BOTH EYES BID
06/11/25 18:00
Atorvastatin [Lipitor] 40 mg PO QPM
06/12/25 06:00
Basic Metabolic Panel IN AM
Complete Blood Count/No Diff IN AM
06/12/25 11:00
DC Protocol for Telemetry ONCE
06/13/25 06:00
Basic Metabolic Panel IN AM
Complete Blood Count/No Diff IN AM
Abnormal Lab Results
06/10/25
18:38
Hgb 9.6 L g/dL
(12.0-16.0)
Hct 35.7 L %
(37.0-47.0)
MCV 79.3 L fL
(81.0-99.0)
MCH 21.3 L pg
(27.0-31.0)
MCHC 26.9 L g/dL
(33.0-37.0)
RDW 21.2 H %
(11.5-14.5)
Plt Count 92 L 10^3/uL
(130-400)
Abs Immat Gran (auto) 0.3 H 10^3/uL
(0-0.05)
Absolute Lymphs (auto) 0.8 L 10^3/uL
(1.2-3.4)
Immature Gran % 4.7 H %
(0-0.5)
Lymphocytes % 13.1 L %
(20.5-51.1)
Monocytes % 9.6 H %
(1.7-9.3)
Sodium 132 L mmol/L
(135-145)
Potassium 2.6 L* mmol/L
(3.5-5.1)
Chloride 90 L mmol/L
(98-107)
Carbon Dioxide 32 H mmol/L
(22-30)
BUN 82 H mg/dl
(7-17)
Creatinine 2.2 H mg/dL
(0.6-1.0)
Glucose 279 H mg/dl
(70-99)
06/10/25 18:38
06/10/25 18:38
Vital Signs
Initial and Last Documented VS:
Initial Vital Signs
Temp Pulse Resp BP Pulse Ox
97.7 F 88 20 105/68 98
06/10/25 14:28 06/10/25 14:28 06/10/25 14:28 06/10/25 14:28 06/10/25 14:28
Last Documented Vital Signs
Temp Pulse Resp BP Pulse Ox
98.2 F 68 18 126/60 99
06/10/25 23:38 06/10/25 22:26 06/10/25 23:38 06/10/25 22:26 06/10/25 23:38
<Maki Klein, DO - Last Filed: 06/10/25 20:12>
Orders/Labs/Results
Orders:
Orders
06/10/25 14:23
ECG [Electrocardiogram (*1)] Urgent
Reason for Study: Other
Other Reason for Exam: pacer problem
EKG- Treatment ONCE
06/10/25 18:38
Complete Blood Count/With Diff Urgent
Comprehensive Metabolic Panel Urgent
Lactic Acid Urgent
Magnesium Urgent
Wound Culture [Wound/Abscess/Other Culture] Urgent
MIKE Source: Surgical Wound
Specimen Description:
Date Specimen was Collected: 06/10/25
Time Specimen was Collected: 18:36
Comment: [facility]
06/10/25 19:31
Add On- LAB Urgent
Tests Added?: magnesium
06/10/25 19:40
Potassium Chloride [KCl] 40 meq PO NOW STA
06/10/25 19:41
CeFAZolin 1 GRAM [Ancef] 1 gram in 5 ml IV NOW
06/10/25 19:42
0.9% Sodium Chloride 500 ml [Nss] 500 ml IV BOLUS
06/10/25 19:55
CeFAZolin 1 GRAM [Ancef] 1 gram in 5 ml IV NOW
06/10/25 19:56
Potassium Chloride [KCl] 40 meq 0.9% Sodium Chloride 250 ml [Nss] 250 ml IV NOW
06/10/25 20:51
Admit/Transfer Patient As Directed
Co-Sign Provider:
Level of Care: Inpatient admission
Assign to:: Telemetry
Physician / Group: eliza
Diagnosis: ICD infection
Reason for Telemetry: Other
Other Reason for Telemetry: hypokalemia
Date to Stop Telemetry: 06/12/25
Time to Stop Telemetry: 11:00
Reason for Hospitalization: ICD infection
Expected length of stay greater than two midnights?: Yes
ELOS- Estimated Length of Stay in days: 3
I certify the patient meets the requirements for IP care: Yes
PRN Pain Medication Management As Directed
May give lesser potent ordered pain med per pt: Yes
preference::
Protocol:: Medication orders for pain may be administered in a
manner that supports deferring to patient preference
when the pt is:
- Requesting an ordered lesser potent pain medication.
Least to most potent pain medications are defined
as: acetaminophen < NSAID < tramadol < opioids
(morphine, oxycodone, hydromorphone).
- Requesting a lesser dose of the same medication IF
ORDERED.
- Requesting a less intrusive route of administration
if both routes are prescribed by the provider (PO <
IV).
06/10/25 20:53
Code Status As Directed
Resuscitation Status: Full Code
06/10/25 22:22
Blood Culture Q30M
MIKE Source: Blood/Venous
Specimen Description:
Blood Culture Q30M
MIKE Source: Blood/Venous
Specimen Description:
06/10/25 23:33
Dextrose 50%-Water [Dextrose 50% Syringe] 12.5 grams IV [id number] PRN
Glucagon [GlucaGen] 1 mg IM PRN PRN
06/10/25 23:33
INFECTIOUS DISEASE CONSULT Routine
Consulting Provider: Jasmyn Lazo
Was physician already notified: Yes
WOUND/OSTOMY CONSULT Routine
Reason for Consult: right chest wall icd wound
Activity As Directed
Activity Level: Out of Bed-Early Mobility
Bedside Glucose Monitoring As Directed
Frequency: AC&HS
Additional Instructions:: Change to q6h if pt on TPN, tube feeding or not eating
Intake/ Output As Directed
Frequency: Per unit guidelines
Venous Foot Pumps As Directed
Location: Bilateral feet
Vital Signs As Directed
Frequency: Per unit guidelines
Weight As Directed
Frequency: Daily
DX Deep Vein Thrombosis Video Routine
06/11/25 Breakfast
NPO
Allow oral meds: Yes
Allow clear liquids: No
NPO for procedure after (time): 06/11/2025 0000
Basic Metabolic Panel IN AM
Complete Blood Count/No Diff IN AM
Glycohemoglobin (HgbA1c) IN AM
Levothyroxine [Synthroid] 50 mcg PO DAILY @ 0600
06/11/25 07:30
Insulin Aspart Corrective Low [Novolog Flexpen-Low Resistance] See Protocol SC AC
06/11/25 08:00
Allopurinol [Zyloprim] 100 mg PO BID
Aspirin Chewable [Low Strength Aspirin] 81 mg PO DAILY
CeFAZolin 2 GRAM [Ancef] 2 grams in 10 ml IV Q12H
Clopidogrel Bisulfate [Plavix] 75 mg PO DAILY
Docusate W/Senna [Senokot-S] 1 tablet PO BID
Metoprolol Xl [Toprol Xl] 50 mg PO DAILY
Potassium Chloride [KCl] 10 meq PO DAILY
ketorolac 1 drop BOTH EYES BID
06/11/25 18:00
Atorvastatin [Lipitor] 40 mg PO QPM
06/12/25 06:00
Basic Metabolic Panel IN AM
Complete Blood Count/No Diff IN AM
06/12/25 11:00
DC Protocol for Telemetry ONCE
06/13/25 06:00
Basic Metabolic Panel IN AM
Complete Blood Count/No Diff IN AM
Abnormal Lab Results
06/10/25
18:38
Hgb 9.6 L g/dL
(12.0-16.0)
Hct 35.7 L %
(37.0-47.0)
MCV 79.3 L fL
(81.0-99.0)
MCH 21.3 L pg
(27.0-31.0)
MCHC 26.9 L g/dL
(33.0-37.0)
RDW 21.2 H %
(11.5-14.5)
Plt Count 92 L 10^3/uL
(130-400)
Abs Immat Gran (auto) 0.3 H 10^3/uL
(0-0.05)
Absolute Lymphs (auto) 0.8 L 10^3/uL
(1.2-3.4)
Immature Gran % 4.7 H %
(0-0.5)
Lymphocytes % 13.1 L %
(20.5-51.1)
Monocytes % 9.6 H %
(1.7-9.3)
Sodium 132 L mmol/L
(135-145)
Potassium 2.6 L* mmol/L
(3.5-5.1)
Chloride 90 L mmol/L
(98-107)
Carbon Dioxide 32 H mmol/L
(22-30)
BUN 82 H mg/dl
(7-17)
Creatinine 2.2 H mg/dL
(0.6-1.0)
Glucose 279 H mg/dl
(70-99)
06/10/25 18:38
06/10/25 18:38
Vital Signs
Initial and Last Documented VS:
Initial Vital Signs
Temp Pulse Resp BP Pulse Ox
97.7 F 88 20 105/68 98
06/10/25 14:28 06/10/25 14:28 06/10/25 14:28 06/10/25 14:28 06/10/25 14:28
Last Documented Vital Signs
Temp Pulse Resp BP Pulse Ox
98.2 F 68 18 126/60 99
06/10/25 23:38 06/10/25 22:26 06/10/25 23:38 06/10/25 22:26 06/10/25 23:38
<Arabella Burgos PA-C - Last Filed: 06/11/25 02:16>
MDM/Problems Addressed
Differential Diagnosis Includes:
Not limited to: Cellulitis, abscess, wound dehiscence, ICD infection, etc.
MDM/Problems Addressed:
80-year-old female presents with concern for possible AICD site infection. The device was placed in February 2025. She was referred from cardiology for ED evaluation due to redness and drainage at the site. The patient is afebrile, reports no
significant pain, and appears well and non-toxic on exam. Vitals are stable. On physical exam, there is localized erythema and a small amount of purulent drainage at the lateral aspect of the AICD incision site. Differential diagnosis includes AICD
pocket infection, localized cellulitis, or possible allergic reaction to topical Neosporin.
Laboratory evaluation shows a stable chronic anemia. Chemistry panel is notable for an incidental acute kidney injury, likely due to dehydration, and significant hypokalemia with a potassium level of 2.6. Cardiology was consulted from the ED and
recommends admission for IV antibiotics and Infectious Disease consultation due to concern for possible device infection. Additionally, the patient will require inpatient management of her VINCENZO and hypokalemia. Plan includes cautious IV fluid
administration, potassium repletion, and close monitoring of renal function and electrolytes. The patient has been accepted to the hospitalist service in stable condition.
Chronic conditions affecting care:
Aortic stenosis, coronary artery disease, CHF with ICD
Acute Exacerbation and/or Progression of Chronic Illness:
N/A
<Arabella Burgos PA-C - Last Filed: 06/11/25 02:16>
*Pulse Oximetry
SaO2: 100
Oxygen Mode of Delivery: Room air
Patient hypoxic: no
*EKG
Interpreted by ED Provider?: Yes
EKG Intrepretation Date: 06/10/25
Interpretation: abnormal
Comparison EKG: changes noted
Heart Rate: 70
Rate: normal
Rhythm: sinus
Interval: first degree heart block
QRS Pattern: left vent hypertrophy
Ischemia: non-specific ST changes
*Mechanical Fitter Interpretation
Rate: Mechanical Fitter- N/A
*Critical Care Note
Total Time (30-74mins, 75-104mins- exclusive of procedures): Not Applicable
<Arabella Burgos PA-C - Last Filed: 06/11/25 02:16>
Patient Management
Discussion with other providers: Hospitalist and Journeyman [employer] (Case discussed with cardiology)
ED Attending Note
<Arabella Burgos PA-C - Last Filed: 06/11/25 02:16>
-
Portions of this chart may have been created with voice recognition software.� Occasional wrong word or��sound alike� substitutions may have occurred due to the inherent limitations of voice recognition software.
<Maki Klein DO - Last Filed: 06/10/25 20:12>
ED Attending Note
Patient seen and examined by attending physician: Yes
I performed the substantive portion of visit, reviewed & personally made and approve the management plan that is documented in note by myself or JAKUB.: Yes
I performed a history and physical exam of patient and discussed management with resident, I reviewed resident's note and agree with documented findings and plan of care.: Yes
ED Attending Note:
80-year-old female with history of diabetes CAD, COPD, hypertension, hyperlipidemia, CHF with AICD placement in February presenting with concern for possible infection overlying her recent AICD site. Patient reports on Tuesday, 3 days ago she saw her
doctor who put in her AICD at [facility]. She notes that 'he did not like the way it looked 'with what sounds like some slight opening of her wound laterally. She was told to put Neosporin on it 3 times a day. After starting Neosporin, noted
increased redness and an area of pus drainage. She called the office today and was told to come to the hospital. Denies fever or chest pain. Denies difficulty breathing.
Vitals on arrival are normal. On examination of the skin overlying AICD, mild erythema with some scabbing at the most lateral aspect of the incision. Infection is certainly consideration, however hypersensitivity reaction to Neosporin is also
consideration. Labs obtained prior to my assessment, no leukocytosis. However, incidentally does have an VINCENZO and hypokalemia. In discussion with cardiology, recommending admission with antibiotics. Patient agreeable to plan.
Discharge Plan
Departure
Patient Disposition: Admit
Date of Disposition: 06/10/25
Time of Disposition: 20:06
Presentation/result/management discussed w/ accepting MD/DO: Hospitalist
Discharge Problem:
VINCENZO (acute kidney injury), Acute hypokalemia, ICD (implantable cardioverter-defibrillator) infection
Interventions
Interventions:
*Risk Screen - Suicide Last Done: 06/10/25 18:35
*General Assessment Last Done: 06/10/25 14:28
*Neglect/Abuse Screening Last Done: 06/10/25 18:35
*ED- Fall Risk Assessment Last Done: 06/10/25 18:35
*ED COVID-19 Vaccine History Last Done: 06/10/25 18:35
*ED Influenza Vaccine History Last Done: 06/10/25 18:35
*Nursing Disposition Last Done: 06/10/25 23:37
ED- Cardiac Assessment Last Done: 06/10/25 18:35
Discharge Date and Time
Discharge Date/Time: 06/10/25 23:38
[2025-06-10 19:10] LABS: ALT (SGPT) 17 U/L (0-35); AST (SGOT) 23 U/L (14-36); Albumin 4.2 g/dl (3.5-5.0); Alkaline Phosphatase 104 U/L (38-126); Blood Urea Nitrogen 82 mg/dl (7-17); Calcium 9.2 mg/dl (8.4-10.2); Carbon Dioxide 32 mmol/L (22-30); Chloride 90 mmol/L (98-107); Estimated Creatinine Clearance 19 ml/min; Glucose 279 mg/dl (70-99); Magnesium 2.1 mg/dl (1.6-2.3); Potassium 2.6 mmol/L (3.5-5.1); Sodium 132 mmol/L (135-145); Total Protein 7.0 g/dl (6.3-8.2); eGFR 22.11
[2025-06-10 19:11] LABS: Hematocrit 35.7 % (37.0-47.0); Hemoglobin 9.6 g/dL (12.0-16.0); Mean Corp Hgb Conc. 26.9 g/dL (33.0-37.0); Mean Corpuscular Volume 79.3 fL (81.0-99.0); Platelet Count 92 10^3/uL (130-400); Red Cell Dist. Width 21.2 % (11.5-14.5)
--- NOTE | 2025-06-10 20:15 | HPS.HSE ---
Addendum entered and electronically signed by Peter Parmar MD 06/10/25 21:29:
This is an addendum to H&P written by Shavonne Whitney 06/10/2025. �Patient seen and examined independently with ORDER ENTRY TECHNICIAN.
80-year-old female past medical history of CAD status post CABG, severe aortic stenosis with low-flow gradient status post TAVR, severe tricuspid insufficiency, moderate to severe mitral regurgitation, systolic/diastolic congestive heart failure
with EF of 20%, thrombocytopenia, anemia, hypertension, hyperlipidemia, diabetes, CKD3, myelodysplastic syndrome, subarachnoid hemorrhage, gout presenting with concern for ICD infection.
She had ICD placed in February at [facility] for cardiomyopathy. �She saw cardiology with in follow-up 3 days ago checked the ICD site and noticed a bump. �She was told to apply Neosporin cream and the site since got red with purulent drainage from
the site.
No chest pain or shortness of breath or dizziness.
Vital signs normal. �EKG shows sinus rhythm with first-degree AV block, PVCs. �LVH.
Labs show stable anemia of 9.6. �Stable thrombocytopenia of 92. �Potassium 2.6. �Creatinine of 2.2 from 1.3. �Blood sugar 279.
Concern for ICD infection. �Cardiology consulted wound culture, blood cultures. �Vancomycin and Ancef. � ID consulted.
Also with VINCENZO likely due to significant diuresis. �Hold Lasix and small IV fluid bolus given.
Hypokalemia secondary to Lasix. Replete. Patient refusing IV lasix due to burning.�
Original Note:
Family Physician
-
Family Physician: Adarsh Campbell
Chief Complaint
-
ICD infection.
History of Present Illness
80-year-old female with history congestive heart failure, coronary artery disease s/p triple CABG, hypertension, hyperlipidemia, insulin-dependent diabetes who presents to the emergency department concerns of ICD site infection. Patient had an ICD
placed at [facility] on February 28. she had an routine visit with the PA on Tuesday, who checked her ICD site and noted that her site had an small bump. She was advised to use Neosporin 3 times a day over the weekend. On Tuesday, it was red and
noted pus drainage from the site on . Today, based on appearance, she was sent to the emergency department for further evaluation of possible ICD infection.Patient denies any fever, chills, or pain around site. She denies any chest pain or
shortness of breath. denied MARTIN, dizzy or syncope. denied abdominal pain,n,v,d. denied dysuria or hematuria.
upon arrival she was initiated on IV ancef. admitting for further management.
Medical History
Past Medical History
Past Medical History: Reports Other
Additional Past Medical History:
CKD stage3, anemia, HTN, PAD, CHF,CAD, ischemic cardiomyopathy
aortic valve stenosis,lung cancer, gout, neuropathy, pancytopenia, MDS, hld, subarachnoid hemorrhage
Past Surgical History: Reports Other
Additional Past Surgical History:
CABGx3
femoral endarterectomy, cholecystectomy, lfet wrist ORIF, right bresat lumpectomy
Social History
Tobacco: Former Smoker
Alcohol: None
Drug: None
Personal:
Living: With Family
Family History
Family History: Not pertinent
Allergies / Home Medications
Allergies reflects when Allergies were last updated in [employer].
Home Medications with original date entered in [employer]
Allergy/Medication List:
Allergies
Allergy/AdvReac Type Severity Reaction Status Date / Time
Iodinated Contrast Media Allergy Nausea / Verified 06/10/25 14:28
Vomiting
levetiracetam (From Keppra) Allergy hallucinate Verified 06/10/25 14:28
s
morphine Allergy Rash Verified 06/10/25 14:28
NARCOTICS Allergy Unknown Uncoded 06/10/25 14:28
Home Medications
ascorbic acid (vitamin C) 1,000 mg tablet (Vitamin C) 500 mg PO DAILY Supplement 09/03/20
aspirin 81 mg chewable tablet 81 mg PO DAILY Blood clot prevention/tx 09/03/20
cholecalciferol (vitamin D3) 25 mcg (1,000 unit) capsule (Vitamin D3) 25 mcg PO DAILY Supplement 09/03/20
glucosamine sulfate dipotassium Cl 500 mg-chondroitin 400 mg capsule (Glucosamine Sulfate 2 KCL-Chondroitin) 1,200 mg BID Supplement 09/03/20
difluprednate 0.05 % eye drops (Durezol) 2 drp BOTH EYES TID ##0 09/06/20
ketorolac 0.5 % eye drops 1 drp BOTH EYES BID Eye Condition 09/06/20
atorvastatin 40 mg tablet 40 mg PO QPM 09/11/20
clopidogrel 75 mg tablet 75 mg PO DAILY 09/11/20
pantoprazole 40 mg tablet,delayed release 40 mg PO DAILY 09/11/20
allopurinol 100 mg tablet 100 mg PO DAILY 09/10/24
levothyroxine 50 mcg tablet (Synthroid) 50 mcg PO DAILY Thyroid 09/10/24
insulin glargine 100 unit/mL subcutaneous solution (Lantus U-100 Insulin) 8 unit SC DAILY Diabetes 10/08/24
metoprolol succinate 25 mg tablet,extended release 24 hr 50 mg PO DAILY Heart Disease/Condition 10/08/24
potassium chloride 20 mEq tablet,extended release(part/cryst) (Klor-Con M) 10 meq PO DAILY Supplement 10/08/24
luspatercept-aamt 75 mg subcutaneous solution (Reblozyl) 84 mg SC Q3W 10/15/24
darbepoetin guillaume in polysorbat 500 mcg/mL in polysorbate injection syringe (Aranesp) 500 mcg SC Q3W 10/25/24
calcium 500 mg tablet 1,000 mg PO DAILY Supplement 11/07/24
furosemide 40 mg tablet 40 mg PO BID Fluid Retention/Swelling 11/07/24
glipizide 2.5 mg tablet, extended release 24 hr 2.5 mg PO DAILY Diabetes 11/07/24
senna-docusate sodium tablet 1 tab PO BID Constipation 11/07/24
vitamin [id number] B1 1 PO QPM Supplement 11/07/24
zinc 25 mg tablet 25 mg PO DAILY 11/07/24
acetaminophen 325 mg tablet 650 mg (2 x 325 mg) PO Q4HPRN PRN MARTIN, mild pain, or fever >101F #0 tabs 11/10/24
Review of Systems
-
Constitutional: Reports No Symptoms
EENT: Reports No Symptoms
Respiratory: Reports No Symptoms
Cardiac: Reports No Symptoms
Abdomen/GI: Reports No Symptoms
: Reports No Symptoms
Musculoskeletal: Reports No Symptoms
Skin: Reports Other (left chest pain ICD site redness)
Neurological: Reports No Symptoms
Endocrine: Reports No Symptoms
Hematologic/Lymphatic: Reports No Symptoms
Psych: Reports No Symptoms
Physical Exam
Vital Signs
Vital Signs
Temp Pulse Resp BP Pulse Ox
98.6 F 63 15 139/61 100
06/10/25 18:35 06/10/25 18:35 06/10/25 18:35 06/10/25 18:35 06/10/25 18:52
Physical Exam
General: Well Developed, Well Nourished and No Apparent Distress
HEENT: NormoCephalic, Moist mucous membranes and Atraumatic
Respiratory: Clear
Cardiac: S1/S2 and Regular Rhythm; No Murmur or Rub
GI: Soft, Non Tender, Non Distended and Normal Bowel Sounds; No Organomegaly
Rectal: Deferred by Provider
Musculoskeletal: No Clubbing, No Cyanosis and No Edema
Skin: Rash and Other (eft upper chest wall with surrounding erythema with small amount of purulent drainage and scab at lateral aspect)
Neuro: Nonfocal/grossly intact
Psych: Calm
Laboratory Results
-
06/10/25 18:38
06/10/25 18:38
Laboratory Results
Lactic Acid 1.6 mmol/L (0.7-2.0) 06/10/25 18:38
Total Bilirubin 0.9 mg/dl (0.2-1.3) 06/10/25 18:38
AST 23 U/L (14-36) 06/10/25 18:38
ALT 17 U/L (0-35) 06/10/25 18:38
Alkaline Phosphatase 104 U/L (38-126) 06/10/25 18:38
Data Reviewed
-
Lab Data: Labs Reviewed by me
Impression/Plan
-
#ICD infection
IV ancef continued
-NPO after MN for possible removal of ICD
-ID consult
-cards aware
-wound culture sent from ER
-blood culture
-Tylenol prn for fever, and pain
#acute kidney injury on CKD stage 3a/hypokalemia on diuretics
-k 2.6
-normal saline in ER
-IV and oral kcl in ER
-BMP in am
#anemia of chronic disease
#chronic thrombocytopenia
#MDS
-on reblozyl as outpatient
-hgb stable at 9.6, no active bleeding
-ctm
#hxt of severe s/p TAVR
#CAD s/p CABG/stents
#chronic diastolic HF
-asa, Plavix
-hold Lasix in setting of VINCENZO.
-strict I&O, daily weight
#HTN/HLD
-statin and metoprolol continued
#DM type 2
-sliding scale
-hold glipizide,Lantus 10units
#hypothyroidism
-levothyroxine continued
#DVT prophylaxis
-scd
#CODE status
-full code
[2025-06-10 20:19] LABS: Nucleated Red Blood Cells % 0.3 %
[2025-06-10 20:24] LABS: Anisocytosis 3+; Hypochromasia 2+; Macrocytosis 2+; Normal RBC Morphology No; Ovalocytes 1+; Polychromasia Occasional; Stomatocytes 1+; Tear Drop Red Blood Cells 1+
[2025-06-10] MEDS: ANCEF 5 IV (20:28)
[2025-06-10] MEDS: KCL 40 MEQ PO ×2 (20:29→23:42)
[2025-06-10] MEDS: NSS 500 IV (20:29)
[2025-06-10] MEDS: KCL 270 MEQ IV (20:29)
--- NOTE | 2025-06-10 21:03 | EDRN ---
Patient not able to tolerate IV potassium. Devonte DESAI made aware.
[2025-06-10 23:40] LABS: Glucose - Point of Care 270 mg/dl (70-99)
[2025-06-11] VITALS (7 sets, daily range): BP systolic 107–128; BP diastolic 50–72; BMI 27.7
[2025-06-11] MEDS: VANCOCIN 530 MG IV (00:45)
--- NOTE | 2025-06-11 01:49 | PTCARENOTE ---
Pt admitted to room 2245 for infected skin on pacer site. Pt AAOx 4, VSS. Pt c/o mild discomfort on wound site. Wound cleaned with NS and covered with stearal dsg. Pt oriented to room, call crowley within reach
[2025-06-11] MEDS: KCL 40 MEQ PO (01:59)
[2025-06-11 03:46] LABS: Hematocrit 32.2 % (37.0-47.0); Hemoglobin 8.6 g/dL (12.0-16.0); Mean Corp Hgb Conc. 26.7 g/dL (33.0-37.0); Mean Corpuscular Volume 80.1 fL (81.0-99.0); Platelet Count 90 10^3/uL (130-400); Red Cell Dist. Width 21.2 % (11.5-14.5)
[2025-06-11 03:55] LABS: Blood Urea Nitrogen 78 mg/dl (7-17); Calcium 8.7 mg/dl (8.4-10.2); Carbon Dioxide 28 mmol/L (22-30); Chloride 99 mmol/L (98-107); Estimated Creatinine Clearance 18 ml/min; Glucose 274 mg/dl (70-99); Potassium 4.0 mmol/L (3.5-5.1); Sodium 137 mmol/L (135-145); eGFR 20.96
[2025-06-11] MEDS: SYNTHROID 75 MCG PO (07:34)
[2025-06-11 07:52] LABS: Glucose - Point of Care 256 mg/dl (70-99)
--- NOTE | 2025-06-11 08:04 | PHA.VAN.IN ---
Assessment
- Assessment
Renal Function: SCR Appears Elevated from baseline (SCR 2.3 vs 1.5 in October 2024)
Concomitant Antimicrobials: cefazolin
Plan
- Plan
Initial / Loading Dose: 1500mg - 06/11 00:45 PLUS additional 500mg to complete 2g load
Maintenance Regimen: dosing by level
Monitoring: random 06/12 06
Pharmacokinetics Vancomycin I
- -
Patient Age: 80
Patient Sex: Female
Vancomycin Day #: 1
Indication: Skin And Soft Tissue
Requesting Provider: Carlito Whitney
Pertinent Antimicrobial Allergies:
no pertinent antibiotic allergies
Height / Weight:
Height 5 ft 3 in
Actual Weight 70.8 kg
Pertinent Past Medical History: cefazolin
- Vital Signs / Lab Results
Temp Pulse Resp BP Pulse Ox
98.1 F 84 16 128/51 98
06/11/25 07:49 06/11/25 05:15 06/11/25 07:49 06/11/25 02:54 06/11/25 07:49
Lab Results - Hematology
06/10/25 06/11/25
18:38 03:01
WBC 5.7 5.6
Lab Results - Chemistry
06/10/25 06/11/25
18:38 03:01
BUN 82 H 78 H
Creatinine 2.2 H 2.3 H
Estimated Creat Clear 19 18
Albumin 4.2
06/10/25
18:38
Lactic Acid 1.6
Microbiology Results
06/10/25 18:38 Gram Stain - Preliminary
Surgical Wound
[2025-06-11 08:11] LABS: Glycohemoglobin (HgbA1c) 7.8 % (4.0-5.6)
[2025-06-11] MEDS: ANCEF 10 IV ×2 (08:49→19:49)
[2025-06-11] MEDS: SENOKOT-S 1 TABLET PO ×2 (08:50→19:49)
[2025-06-11] MEDS: TOPROL XL 50 MG PO (08:50)
[2025-06-11] MEDS: ZYLOPRIM 100 MG PO ×2 (08:50→19:50)
[2025-06-11] MEDS: LANTUS 0.1 UNITS SC (08:50)
[2025-06-11] MEDS: KCL 10 MEQ PO (08:50)
[2025-06-11] MEDS: LOW STRENGTH ASPIRIN 81 MG PO (08:50)
[2025-06-11] MEDS: PLAVIX 75 MG PO (08:52)
--- NOTE | 2025-06-11 09:45 | WOUNDNOTE ---
WO RN note: Patient admitted with ICD site infection, hypokalemia.
See H&P for complete history.
PMH:80-year-old female past medical history of CAD status post CABG, severe aortic stenosis with low-flow gradient status post TAVR, severe tricuspid insufficiency, moderate to severe mitral regurgitation, systolic/diastolic congestive heart failure
with EF of 20%, thrombocytopenia, anemia, hypertension, hyperlipidemia, diabetes, CKD3, myelodysplastic syndrome, subarachnoid hemorrhage, gout ICD placed in February, presenting with concern for ICD infection.
Wound Location and type/assessment: Patient admitted with: L upper chest dry block eschar over ICD surgical site from February of this year. Scant drainage, no odor or signs of infection now. Patient states she has been using Neosporin daily and a dry
dressing. Has a follow up apt with Dr. Edmonds this . Sacrum and heels intact.
Appetite: Good.
Pressure redistribution devices in place: Accumax, turns self and ad nereida with minimal assist.
Plan: Honey gel with 2x2 gauze and silicone foam daily. Called [facility] for honey gel and applied with dry dressing.
Will confirm orders with hospitalist and update nurse.
Updated care plan and will follow as needed.
Note to case management of equipment requested for discharge: None.
Recommend follow up with surgeon.
--- NOTE | 2025-06-11 09:46 | CM ---
Reviewed chart. Met with Mrs. Eubanks to review discharge plans. She states prior to admission she resides with her spouse in a two story home with four steps to enter. She states she has a full flight of steps to get to bedroom/full bathroom. She
states she does not have a powder room on the first floor. She states she is using a bedside commode since she is staying on the first floor since her PPM implant. She states prior to admission she ambulates with a rolling walker. She states she
has a rolling walker, bedside commode and transport wheelchair at home. She states she has a prescription plan and uses [facility]. She states she has had [facility] in the past. Will need to see if she will need IV ABX. Medical
work-up in progress. The discharge plan is to return home with [facility] for IV ABX id indicated when medically stable.
--- NOTE | 2025-06-11 09:50 | WOUNDNOTE ---
WO RN note: Patient admitted with ICD site infection, hypokalemia.
See H&P for complete history.
PMH:80-year-old female past medical history of CAD status post CABG, severe aortic stenosis with low-flow gradient status post TAVR, severe tricuspid insufficiency, moderate to severe mitral regurgitation, systolic/diastolic congestive heart failure
with EF of 20%, thrombocytopenia, anemia, hypertension, hyperlipidemia, diabetes, CKD3, myelodysplastic syndrome, subarachnoid hemorrhage, gout ICD placed in February, presenting with concern for ICD infection.
Wound Location and type/assessment: Patient admitted with: L upper chest dry block eschar over ICD surgical site from February of this year. Scant drainage, no odor or signs of infection now. Patient states she has been using Neosporin daily and a dry
dressing. Has a follow up apt with Dr. Edmonds this .
Appetite: Good.
Pressure redistribution devices in place: Accumax, turns self and ad nereida with minimal assist.
Plan: Honey gel with 2x2 gauze and silicone foam daily. Called [facility] for honey gel and applied with dry dressing.
Will confirm orders with hospitalist and update nurse.
Updated care plan and will follow as needed.
Note to case management of equipment requested for discharge: None.
Recommend follow up with surgeon.
--- NOTE | 2025-06-11 10:01 | CON.ID ---
Consultation
-
Date/Time Consultation Requested: 06/10/25 23:33
Date/Time Consultation Performed: 06/11/25 10:02
Requesting Provider: Devonte KEITH
Performing Provider: Dr Lazo
Reason for Consultation: pacemaker infection
Chief Complaint / Past History
Chief Complaint
red purulent drainage from ICD site
History of Present Illness
Ms Eubanks is an 80 year old female with history of CHF, CAD s/p CABG, DM2 who had a pacemaker placed at [facility] February 28. Then last tuesday she had a routine visit and a small bump was noted over the pacemaker. She was advised to apply
neosporin TID, then on Tuesday she began to have purulent drainage from the site. She was referred to the ER tuesday for possible pacemaker infection. No fevers, chills or pain around the site. No chest pain, shortness of breath, dizziness,
syncope, abdominal pain, nausea, vomiting, diarrhea, dysuria or hematuria.
Since arrival here she has been afebrile, bp stable, HR 80-90s, wbc 5.7, hgb 9.6, plt 92, no L shift, na 132, K initially 2.6 corrected to 4.0 today, cr baseline 1.5 now 2.3, a1c 7.8, t bili 0.9, ast 23, alt 17, alk phos 104, blood cultures x2 are
in progress, mrsa screen is pending, patient is currently on vancomycin and cefazolin, ID is consulted for assistance with management.
Past History
Additional Past Medical History:
CAD status post CABG, severe aortic stenosis with low-flow gradient status post TAVR, severe tricuspid insufficiency, moderate to severe mitral regurgitation, systolic/diastolic congestive heart failure with EF of 20%, thrombocytopenia, anemia,
hypertension, hyperlipidemia, diabetes, CKD3, myelodysplastic syndrome, subarachnoid hemorrhage, gout
Additional Past Surgical History:
as per hpi
Allergy History:
Iodinated Contrast Media Allergy (Verified 06/10/25 14:28)
Nausea / Vomiting
levetiracetam (From Keppra) Allergy (Verified 06/10/25 14:28)
hallucinates
morphine Allergy (Verified 06/10/25 14:28)
Rash
NARCOTICS Allergy (Uncoded 06/10/25 14:28)
Unknown
Medications Reviewed: Yes
Social History
Tobacco: Former Smoker
Alcohol: None
Drug: None
Family History
Family History: Not Pertinent
Review of Systems
Review of Systems
Constitutional: Reports No Symptoms
EENT: Reports No Symptoms
Respiratory: Reports No Symptoms
Cardiac: Reports No Symptoms
Abdomen/GI: Reports No Symptoms
: Reports No Symptoms
Musculoskeletal: Reports No Symptoms
Skin: Reports Other (left chest pain ICD site redness)
Neurological: Reports No Symptoms
Endocrine: Reports No Symptoms
Hematologic/Lymphatic: Reports No Symptoms
Psych: Reports No Symptoms
Vital Signs
Temp Pulse Resp BP Pulse Ox
98.1 F 90 16 107/59 97
06/11/25 07:49 06/11/25 08:30 06/11/25 07:49 06/11/25 07:34 06/11/25 08:42
Physical Exam
Physical Exam
Constitutional: No Acute Distress
Cardiovascular: Regular Rate and S1/S2; Negative Murmur or Rub
Pulmonary: Clear and Symmetric; Negative Wheezes, Rales or Rhonchi
Gastrointestinal: Soft, Non Tender, Non Distended and Normal Bowel Sounds
Skin: Warm and Dry; Negative Rash or Jaundice
Wound: Other (small about 2 cm fistula with purulent drainage and erythema over the pacemaker)
Lab / Diagnostic Study Results
06/11/25 03:01
06/11/25 03:01
Abs Immat Gran (auto) 0.3 10^3/uL (0-0.05) H 06/10/25 18:38
Absolute Neuts (auto) 4.1 10^3/uL (1.4-6.5) 06/10/25 18:38
Absolute Lymphs (auto) 0.8 10^3/uL (1.2-3.4) L 06/10/25 18:38
Absolute Monos (auto) 0.6 10^3/uL (0.1-0.6) 06/10/25 18:38
Absolute Basos (auto) 0.0 10^3/uL (0-0.2) 06/10/25 18:38
Immature Gran % 4.7 % (0-0.5) H 06/10/25 18:38
Neutrophils % 72.1 % (42.2-75.2) 06/10/25 18:38
Lymphocytes % 13.1 % (20.5-51.1) L 06/10/25 18:38
Monocytes % 9.6 % (1.7-9.3) H 06/10/25 18:38
Eosinophils % 0.3 % (0-6) 06/10/25 18:38
Basophils % 0.2 % (0-2) 06/10/25 18:38
Lactic Acid 1.6 mmol/L (0.7-2.0) 06/10/25 18:38
Microbiology Results
Micro:
06/11/25 00:18 MRSA Screen - Pending
Nose
06/10/25 22:22 Blood Culture - Pending
Blood/Venous
06/10/25 22:22 Blood Culture - Pending
Blood/Venous
06/10/25 18:38 Wound Culture - Pending
Surgical Wound Gram Stain - Preliminary
Assessment / Plan
Probable ICD infection
- blood cultures x2 are in progress
- if device is removed please send for aerobic and anaerobic culture
- please obtain JULIOCESAR at the time of device removal
- continue vancomycin and cefazolin at this time
[2025-06-11 11:47] LABS: Glucose - Point of Care 228 mg/dl (70-99)
[2025-06-11] MEDS: NOVOLOG FLEXPEN-LOW RESISTANCE SC (12:16)
[2025-06-11] MEDS: NOVOLOG FLEXPEN-LOW RESISTANCE 2 UNITS SC (12:16)
[2025-06-11] MEDS: VANCOCIN HCL 500 MG 100 IV (12:17)
--- NOTE | 2025-06-11 14:08 | PTCARENOTE ---
Assumed care of the pt @ 0700. Pt is AAOx3 SR on the monitor denies cp VSS. WC nurse at bedside to change LCW wound dressing. Pt ambulates independently in the room. POC discussed with pt verbalized understanding. Call crowley within reach.
--- NOTE | 2025-06-11 14:12 | CON.CAR ---
Consultation
Consultation Request
Date/Time Consultation Requested: 06/11/2025
Date/Time Consultation Performed: 06/11/2025
Reason for Consultation: Infected ICD pocket
Medical History
-
Chief Complaint: Infected ICD pocket
History of Present Illness:
Patient is an 80-year-old woman with a history of coronary disease status post CABG�triple-vessel 2020, PCI with stent to LCx and OM in 12/2023, status post PCI with stent to SVG to D1 in 06/2024, severe AAS status post TAVR 10/2024 (Marilu Ultra 26
mm, Barry/Marilou), moderate-severe MR and TR, chronic severe LV systolic failure with LVEF 20% with ischemic cardiomyopathy, status post dual-chamber ICD on 02/28/2025, HTN, HPL, history of subarachnoid hemorrhage with mechanical fall in October 2023,
DM on insulin, CKD, MDS, history of right lower lobe lung cancer status postradiation therapy. Patient underwent primary prevention ICD at [facility] (Dr. Reed) with significant ecchymosis of the left chest wall but had markedly
improved following the implant. Unfortunately patient's pocket has dehiscence of her wound and started having discharge which is turned into pus.
.
Patient denies any fevers, rigors or chills. No significant pain.
.
Dual-chamber Medtronic ICD 02/28/2025
ICD cobalt XT DR HUTCHINS I-S 1 DF4, model PWUU0Y3; serial number [id number].
Atrial lead Medtronic 5076; serial number [id number]
RV lead: Medtronic [id number]; serial number [id number]
Past Medical History
Past Medical History: CAD (Status post CABG and PCI's x 2), CHF (Persistent low LVEF-20%), HTN, Hypercholesterolemia, IDDM, Renal Failure, Valvular Disease (Moderate to severe MR, severe status post TAVR) and Other (MDS, thrombocytopenia and
anemia, CKD 3, history of subarachnoid hemorrhage, gout)
Past Surgical History: Cardiac
Social History
Tobacco: Former Smoker
Alcohol: None
Drug: None
Family History
Family History: Reviewed & Not Pertinent
Allergies / Home Medications
Allergy/AdvReac Type Severity Reaction Status Date / Time
Iodinated Contrast Media Allergy Nausea / Verified 06/10/25 14:28
Vomiting
levetiracetam (From [facility]) Allergy hallucinate Verified 06/10/25 14:28
s
morphine Allergy Rash Verified 06/10/25 14:28
NARCOTICS Allergy Unknown Uncoded 06/10/25 14:28
�Medication �Instructions �Recorded �Confirmed �Type
ascorbic acid (vitamin C) 1,000 mg 500 mg PO DAILY Supplement 09/03/20 06/11/25 History
tablet (Vitamin C)
aspirin 81 mg chewable tablet 81 mg PO DAILY Blood clot 09/03/20 06/11/25 History
prevention/tx
glucosamine sulfate dipotassium Cl 1,200 mg BID Supplement 09/03/20 06/11/25 History
500 mg-chondroitin 400 mg capsule
(Glucosamine Sulfate 2
KCL-Chondroitin)
ketorolac 0.5 % eye drops 1 drp BOTH EYES BID Eye Condition 09/06/20 06/11/25 History
atorvastatin 40 mg tablet 40 mg PO QPM 09/11/20 06/11/25 Rx
clopidogrel 75 mg tablet 75 mg PO DAILY 09/11/20 06/11/25 Rx
allopurinol 100 mg tablet 200 mg PO BID Gout 09/10/24 06/11/25 History
levothyroxine 50 mcg tablet 75 mcg PO DIRECTED Thyroid 09/10/24 06/11/25 History
(Synthroid)
insulin glargine 100 unit/mL 10 unit SC DAILY Diabetes 10/08/24 06/11/25 History
subcutaneous solution (Lantus
U-100 Insulin)
metoprolol succinate 25 mg 50 mg PO DAILY Heart 10/08/24 06/11/25 History
tablet,extended release 24 hr Disease/Condition
potassium chloride 20 mEq 10 meq PO DAILY Supplement 10/08/24 06/11/25 History
tablet,extended
release(part/cryst) (Klor-Con M)
luspatercept-aamt 75 mg 84 mg SC Q3W Anemia 10/15/24 06/10/25 History
subcutaneous solution (Reblozyl)
calcium 500 mg tablet 1,000 mg PO DAILY Supplement 11/07/24 06/11/25 History
furosemide 40 mg tablet 80 mg PO DAILY Fluid 11/07/24 06/11/25 History
Retention/Swelling
glipizide 2.5 mg tablet, extended 2.5 mg PO DIRECTED Diabetes 11/07/24 06/11/25 History
release 24 hr
senna-docusate sodium tablet 2 tab PO DAILY Constipation 11/07/24 06/11/25 History
vitamin [id number] B1 1 PO QPM Supplement 11/07/24 History
zinc 25 mg tablet 25 mg PO DAILY Supplement 11/07/24 06/11/25 History
acetaminophen 325 mg tablet 650 mg (2 x 325 mg) PO Q4HPRN PRN 11/10/24 Rx
MARTIN, mild pain, or fever >101F #0
tabs
Jardiance DAILY Diabetes 06/11/25 History
cholecalciferol (vitamin D3) 1,000 units DAILY Supplement 06/11/25 06/11/25 History
pantoprazole 40 mg DAILY Gastrointestinal Issue 06/11/25 06/11/25 History
Review of Systems
-
All other systems: Negative unless noted
Physical Exam
Vital Signs
Temp Pulse Resp BP Pulse Ox
97.6 F 84 18 118/72 99
06/11/25 11:50 06/11/25 14:00 06/11/25 11:50 06/11/25 11:43 06/11/25 11:50
Lab Results
06/11/25 03:01
06/11/25 03:01
Physical Exam
General: Well Developed, Well Nourished and No Apparent Distress
HEENT: Normocephalic, Anicteric and Moist Mucous Membranes
Respiratory: Clear and Non Labored Respirations
Cardiac: S1/S2 and Regular Rhythm
GI: Soft, Non Tender, Non Distended and Normal Bowel Sounds
Musculoskeletal: No Clubbing, No Cyanosis and No Edema
Skin: Warm and Dry
Neuro: Awake, Alert, Oriented, AO x 3 and No Motor Deficits
Impression / Plan
-
80-year-old woman with sigmoid coronary disease status post CABG and progressive obstructive coronary artery disease requiring PCI to [place] and bypass vessels, severe status post TAVR, persistent low EF 20% status post dual-chamber ICD, MDS,
HTN, HPL, insulin-dependent ICD, CKD 3, and history of subarachnoid hemorrhage and gout presented with discharge from ICD pocket with dehiscence of ICD wound
ICD infection
- Status post dual-chamber ICD on 02/28/2025
- Initial resolution of any ecchymosis and hematoma of the pocket
- Now presented with dehiscence and discharge from the ICD pocket.
- Pus was expressed from the pocket
- Currently on Ancef and vancomycin
- Likely no sign of systemic infection
- Obtain JULIOCESAR to rule out endocarditis. Presence of systemic infection or endocarditis would require much longer duration of antibiotic versus parenteral therapy
- JULIOCESAR in AM.
- Plan for extraction of the whole system on 06/13/2025
- Plan for LifeVest for the duration of antibiotics
- Once infection is cleared, plan for reimplant of ICD on the right side
Coronary disease
- Status post CABG and PCI's to mid vessel
- On aspirin, Plavix, Lipitor, Jardiance, metoprolol, Lasix, metolazone,
Heart failure
- Severe systolic dysfunction with LV EF of 20%.
- Status post dual-chamber ICD
- On GDMT maximally tolerated. Not able to tolerate afterload reduction with Entresto or GEORGIA inhibitors due to hypotension.
Other problems -treatment as per primary team
DM
CKD
Hypothyroidism
Data Reviewed
-
EKG: Tracing Personally Visualized and interpreted and Report Reviewed by me
Radiology: Image Personally Visualized and interpreted and Report Reviewed by me
Labs: Labs Reviewed by me
Old Records: Reviewed
--- NOTE | 2025-06-11 14:43 | W.PN.HOSP.TC ---
Today's Communication/Plan
-
IV abx
F/u cultures
JULIOCESAR tomorrow, likely extraction
Renal US
Hold lasix, monitor Scr
Assessment / Plan
Assessment / Plan
Constitutional: No Acute Distress
Cardiovascular: Regular Rate and S1/S2; Negative Murmur or Rub
Pulmonary: Clear and Symmetric; Negative Wheezes, Rales or Rhonchi
Gastrointestinal: Soft, Non Tender, Non Distended and Normal Bowel Sounds
Skin: Warm and Dry; Negative Rash or Jaundice
Wound: Other (small about 2 cm fistula with purulent drainage and erythema over the pacemaker)
#Probable ICD infection
IV ancef, Vanc continued
-NPO after MN for JULIOCESAR; planned extraction
-F/u cultures
-ID, Cards involved
-wound culture sent from ER
-blood culture
-Tylenol prn for fever, and pain
#acute kidney injury on CKD stage 3a/hypokalemia on diuretics
-k 2.6
-normal saline in ER
-IV and oral kcl in ER
-BMP in am
-Hold diuretics
-F/u Renal US
#Hyponatremia
-monitor
-improved
#anemia of chronic disease
#chronic thrombocytopenia
#MDS
-on reblozyl as outpatient
-hgb stable at 9.6, no active bleeding
-ctm
#hxt of severe s/p TAVR
#CAD s/p CABG/stents
#chronic diastolic HF
-asa, Plavix
-hold Lasix in setting of VINCENZO.
-strict I&O, daily weight
#HTN/HLD
-statin and metoprolol continued
#DM type 2
-sliding scale
-hold glipizide,Lantus 10units
#hypothyroidism
-levothyroxine continued
#DVT prophylaxis
-hsq
#CODE status
-full code
Anticipated Discharge: > 48 hours
Subjective/Interval History
-
Date of Service: June 11, 2025
drainage noted at incision site
Objective Data
-
Labs:
Laboratory Results
06/11/25
03:01
WBC 5.6
Hgb 8.6 L
Hct 32.2 L
Plt Count 90 L
Sodium 137
Potassium 4.0 D
Chloride 99
Carbon Dioxide 28
BUN 78 H
Creatinine 2.3 H
Glucose 274 H
Calcium 8.7
Vital Signs:
Vital Signs
Temp Pulse Resp BP Pulse Ox
97.6 F 84 18 118/72 99
06/11/25 11:50 06/11/25 14:00 06/11/25 11:50 06/11/25 11:43 06/11/25 11:50
I&O
06/10/25 06/11/25 06/12/25
06:59 06:59 06:59
Intake Total 700 / 700
Balance 700 / 700
Review of Systems
-
History Source: Patient
All other systems: Not reviewed unless documented
Data Reviewed
-
Labs: Labs Reviewed by me
[2025-06-11 15:19] LABS: Urine Character Clear (Clear)
[2025-06-11 16:15] LABS: Urine Red Blood Cell 0-2 /HPF (0-2); Urine White Cell 50-60 /HPF (0-5)
[2025-06-11 17:25] LABS: Glucose - Point of Care 188 mg/dl (70-99)
[2025-06-11] MEDS: NOVOLOG FLEXPEN-LOW RESISTANCE 1 UNITS SC (17:36)
[2025-06-11] MEDS: HEPARIN 5000 UNITS SC ×2 (17:36→23:30)
[2025-06-11] MEDS: LIPITOR 40 MG PO (17:36)
[2025-06-11] MEDS: FLUSH (NSS) 1 FLUSH IV (19:50)
[2025-06-11 22:24] LABS: Glucose - Point of Care 195 mg/dl (70-99)
--- NOTE | 2025-06-12 00:16 | PTCARENOTE ---
Received pt @ change of shift. AAOx3, VSS-- NSR on monitor. Pt denies pain @ this time. Bandage/wound care on infected ICD site. Discussed being NPO @ midnight for JULIOCESAR in AM. Pt verbalizes understanding. Call [facility] within reach.
--- NOTE | 2025-06-12 02:18 | DOWNTIME ---
There was a [facility] [employer] Pharmacovigilance Specialist Downtime on 06/12/2025 from 0100 to 06/12/2025 at 0215. Downtime documentation of patient's care, including medication administrations, has been reconciled in the electronic record per guidelines. Refer to the
patient's paper chart under the miscellaneous tab to see printed paper medication records and downtime forms.
[2025-06-12 03:59] VITALS: BP 112/52
[2025-06-12 04:01] VITALS: BMI 28.0
[2025-06-12 04:12] LABS: Hematocrit 29.3 % (37.0-47.0); Hemoglobin 8.1 g/dL (12.0-16.0); Mean Corp Hgb Conc. 27.6 g/dL (33.0-37.0); Mean Corpuscular Volume 79.8 fL (81.0-99.0); Platelet Count 83 10^3/uL (130-400); Red Cell Dist. Width 21.1 % (11.5-14.5)
[2025-06-12 04:34] LABS: Blood Urea Nitrogen 71 mg/dl (7-17); Calcium 8.5 mg/dl (8.4-10.2); Carbon Dioxide 25 mmol/L (22-30); Chloride 102 mmol/L (98-107); Estimated Creatinine Clearance 22 ml/min; Glucose 155 mg/dl (70-99); Potassium 3.7 mmol/L (3.5-5.1); Sodium 132 mmol/L (135-145); eGFR 26.36
--- NOTE | 2025-06-12 05:51 | PTCARENOTE ---
Pt did not sleep most of the night-- awake, with lights on, watching TV. Discussed JULIOCESAR for today-- pt shared being very nervous about procedure. RN comforted and educated pt.
[2025-06-12 07:30] VITALS: BP 125/67
[2025-06-12 08:00] VITALS: BMI 28.2
--- NOTE | 2025-06-12 08:18 | PHA.VAN.FU ---
Vancomycin Assessment / Plan
- Assessment
Renal Function: SCR Decreasing
In the past 24 hrs, patient has been: Afebrile
Concomitant Antimicrobials: cefazolin
- Assessment - Therapeutic Drug Monitoring
Random Level: 16.2 - drawn ~15.5H after 500mg dose (received divided load of 2g)
- Dosing Plan
Dosing by Level: Re-dose today (Vanc 750mg)
- Monitoring Plan
Random Level: 06/13 0600
- Follow Up
Pharmacy will continue to follow.
Vancomycin Follow UP
- -
Patient Age: 80
Patient Sex: Female
Vancomycin Day #: 2
Indication: Skin And Soft Tissue
Requesting Provider: Carlito Whitney / Dr. Lazo
Pertinent Antimicrobial Allergies:
no pertinent antibiotic allergies
Height / Weight:
Height 5 ft 3 in
Actual Weight 71.6 kg
Pertinent Past Medical History: cefazolin
- Vital Signs / Lab Results
Temp Pulse Resp BP Pulse Ox
98.6 F 94 18 112/52 99
06/12/25 07:32 06/12/25 04:30 06/12/25 07:32 06/12/25 03:59 06/12/25 07:32
Lab Results - Hematology
06/10/25 06/11/25 06/12/25
18:38 03:01 03:53
WBC 5.7 5.6 4.5 L
Lab Results - Chemistry
06/10/25 06/11/25 06/12/25
18:38 03:01 03:53
BUN 82 H 78 H 71 H
Creatinine 2.2 H 2.3 H 1.9 H
Estimated Creat Clear
Albumin 4.2
06/10/25
18:38
Lactic Acid 1.6
Lab Results - Urine
06/11/25
14:46
Urine Nitrite (Reflex) Negative
Leukocyte Esterase Rfl 3+ A
Ur Squamous Epith Cells 6-10
Microbiology Results
06/10/25 22:22 Blood Culture - Preliminary
Blood/Venous No Growth in 24 hours- Final report to follow
06/10/25 22:22 Blood Culture - Preliminary
Blood/Venous No Growth in 24 hours- Final report to follow
06/10/25 18:38 Wound Culture - Preliminary
Surgical Wound No growth
Gram Stain - Preliminary
Therapeutic Drug Monitoring
Random Vancomycin 16.2 ug/ml 06/12/25 03:53
[2025-06-12 08:28] LABS: Glucose - Point of Care 147 mg/dl (70-99)
[2025-06-12] MEDS: TOPROL XL 50 MG PO (08:41)
[2025-06-12] MEDS: ZYLOPRIM 100 MG PO ×2 (08:41→21:23)
[2025-06-12] MEDS: HEPARIN 5000 UNITS SC ×2 (08:42→16:59)
[2025-06-12] MEDS: SENOKOT-S 1 TABLET PO ×2 (08:42→21:23)
[2025-06-12] MEDS: PLAVIX 75 MG PO (08:42)
[2025-06-12] MEDS: LOW STRENGTH ASPIRIN 81 MG PO (08:42)
[2025-06-12] MEDS: ANCEF 10 IV ×2 (08:43→21:22)
[2025-06-12] MEDS: KCL 10 MEQ PO (08:44)
[2025-06-12] MEDS: SYNTHROID 75 MCG PO (08:44)
[2025-06-12] MEDS: LANTUS 0.1 UNITS SC (09:05)
[2025-06-12] MEDS: NOVOLOG FLEXPEN-LOW RESISTANCE SC (09:08)
--- NOTE | 2025-06-12 09:09 | W.PN.CD ---
Today's Communication / Plan
-
- JULIOCESAR today to rule out endocarditis and vegetation on hardware.
Impression / Plan
-
80-year-old woman with sigmoid coronary disease status post CABG and progressive obstructive coronary artery disease requiring PCI to [place] and bypass vessels, severe status post TAVR, persistent low EF 20% status post dual-chamber ICD, MDS,
HTN, HPL, insulin-dependent ICD, CKD 3, and history of subarachnoid hemorrhage and gout presented with discharge from ICD pocket with dehiscence of ICD wound
ICD infection
- Status post dual-chamber ICD on 02/28/2025
- Initial resolution of any ecchymosis and hematoma of the pocket
- Now presented with dehiscence and discharge from the ICD pocket.
- Pus was expressed from the pocket
- Currently on Ancef and vancomycin
- Likely no sign of systemic infection
- Obtain JULIOCESAR to rule out endocarditis. Presence of systemic infection or endocarditis would require much longer duration of antibiotic versus parenteral therapy
- JULIOCESAR today
- Plan for extraction of the whole system on 06/13/2025
- Plan for LifeVest for the duration of antibiotics
- Once infection is cleared, plan for reimplant of ICD on the right side
Coronary disease
- Status post CABG and PCI's to mid vessel
- On aspirin, Plavix, Lipitor, Jardiance, metoprolol, Lasix, metolazone,
Heart failure
- Severe systolic dysfunction with LV EF of 20%.
- Status post dual-chamber ICD
- On GDMT maximally tolerated. Not able to tolerate afterload reduction with Entresto or GEORGIA inhibitors due to hypotension.
- s/p TAVR
- rule out vegetations with JULIOCESAR
Other problems -treatment as per primary team
DM
CKD
Hypothyroidism
Physical Exam
Vital Signs/Labs
Vital Signs
Temp Pulse Resp BP Pulse Ox
98.6 F 94 18 112/52 99
06/12/25 07:32 06/12/25 04:30 06/12/25 07:32 06/12/25 03:59 06/12/25 07:32
06/11/25 06/12/25 06/13/25
06:59 06:59 06:59
Actual Weight 70.8 kg 71.6 kg
06/12/25 03:53
06/12/25 03:53
Magnesium 2.1 mg/dl (1.6-2.3) 06/10/25 18:38
Physical Exam
Constitutional: No acute distress and Comfortable
EENT: Anicteric and Moist mucous membranes
Cardiovascular: Rhythm & rate is regular, Pedal edema is absent and JVD pressure is normal
Respiratory: Respiratory effort normal and Lungs clear to auscul.
GI: Soft and Normal bowel sounds
Neuro/Psych: Alert, Oriented and AO x 3
Other: Cardiac Device Site
Data Reviewed
-
Date of Service: June 12, 2025
Medical Decision Making: Reviewed Test Results, Test Interpretation and Review of Case with other Provider
EKG: Tracing Personally Visualized and interpreted
Labs: Labs Reviewed by me
Old Records: Reviewed
[2025-06-12] MEDS: VANCOCIN IV (09:11)
--- NOTE | 2025-06-12 10:00 | W.PN.ID1 ---
Date of Service
Date of Service: June 12, 2025
Today's Communication
for JULIOCESAR today
suspected pocket infection
continue vanc/cefazolin
Assessment / Plan
Probable ICD pocket infection
VINCENZO - improving
- blood cultures x2 are no growth to date
- wound culture no growth to date - preliminary
- if device is removed please send for aerobic and anaerobic culture
- JULIOCESAR will be done today
- continue vancomycin and cefazolin at this time
Chief Complaint
-: Other (pacemaker pocket infection)
Subjective / Review of Systems
afebrile
bp stable
'Im a wreck, Im so nervous'
Vital Signs / Physical Exam
Vital Signs
Vital Signs
Temp Pulse Resp BP Pulse Ox
98.6 F 94 18 112/52 99
06/12/25 07:32 06/12/25 04:30 06/12/25 07:32 06/12/25 03:59 06/12/25 07:32
Physical Exam
Constitutional: No Acute Distress
Cardiovascular: Regular Rate and S1/S2; Negative Murmur or Rub
Pulmonary: Clear and Symmetric; Negative Wheezes or Rales
Gastrointestinal: Soft, Non Tender, Non Distended and Normal Bowel Sounds
Skin: Warm and Dry; Negative Rash or Jaundice
Wound: Other (small lesion over the packmaker pocket with purulent fluid draining)
Objective Data
Lab Data
Lab Results
06/12/25 03:53
06/12/25 03:53
Estimated Creat Clear 22 ml/min 06/12/25 03:53
Lactic Acid 1.6 mmol/L (0.7-2.0) 06/10/25 18:38
Total Bilirubin 0.9 mg/dl (0.2-1.3) 06/10/25 18:38
AST 23 U/L (14-36) 06/10/25 18:38
ALT 17 U/L (0-35) 06/10/25 18:38
Alkaline Phosphatase 104 U/L (38-126) 06/10/25 18:38
Most recent labs reviewed.
Micro Results:
06/11/25 00:18 MRSA Screen - Final
Nose No Methicillin Resistant Staphylococcus aureus isolated.
06/10/25 22:22 Blood Culture - Preliminary
Blood/Venous No Growth in 24 hours- Final report to follow
06/10/25 22:22 Blood Culture - Preliminary
Blood/Venous No Growth in 24 hours- Final report to follow
06/11/25 14:46 Urine Culture - Pending
Urine
06/10/25 18:38 Wound Culture - Preliminary
Surgical Wound No growth
Gram Stain - Preliminary
--- NOTE | 2025-06-12 10:07 | CM ---
Reviewed chart. Met with Mrs. Eubanks to review discharge plans. She states she is feeling well. She states she is having a TTE today and possible extractions of the PPM tomorrow. She may need a Life Vest. Telephone call to Life Vest Liaison to
make the referral. Will send paperwork, referral once decision regarding Life Vest. She states she had a Life Vest in the past. She states the last time she has a Life Vest it was extremely uncomfortable and had skin break down. Waiting to see if
she will need [employer] Picture [employer] ABX. Prior to admission she resides with her spouse in a two story home with four steps to enter. She has a full flight of steps to get to bedroom/full bathroom. does not have a powder room on the first floor. She is using
a bedside commode since she is staying on the first floor since her PPM implant. Prior to admission she ambulates with a rolling walker. She has a rolling walker, bedside commode and transport wheelchair at home. She has a prescription plan and
uses [facility]. She has had [facility] in the past. Will need to see if she will need IV ABX. Medical work-up in progress. The discharge plan is to return home with [facility] for IV ABX id indicated when
medically stable.
[2025-06-12 12:09] VITALS: BP 115/60
[2025-06-12] MEDS: VANCOCIN 150 IV (12:26)
[2025-06-12 13:22] LABS: Glucose - Point of Care 181 mg/dl (70-99)
[2025-06-12] MEDS: NOVOLOG FLEXPEN-LOW RESISTANCE 1 UNITS SC ×2 (13:40→17:00)
--- NOTE | 2025-06-12 15:31 | W.PN.HOSP.TC ---
Today's Communication/Plan
-
abx
Extraction tomorrow
Assessment / Plan
Assessment / Plan
Constitutional: No Acute Distress
Cardiovascular: Regular Rate and S1/S2; Negative Murmur or Rub
Pulmonary: Clear and Symmetric; Negative Wheezes, Rales or Rhonchi
Gastrointestinal: Soft, Non Tender, Non Distended and Normal Bowel Sounds
Skin: Warm and Dry; Negative Rash or Jaundice
Wound: Other (small about 2 cm fistula with purulent drainage and erythema over the pacemaker)
#Probable ICD infection
IV ancef, Vanc continued
-JULIOCESAR - no endocarditis
- planned extraction
-F/u cultures
-ID, Cards involved
-wound culture sent from ER
-blood culture
-Tylenol prn for fever, and pain
#acute kidney injury on CKD stage 3a/hypokalemia on diuretics
-k 2.6
-normal saline in ER
-IV and oral kcl in ER
-BMP in am
-Hold diuretics
-F/u Renal US - no hydro; moderate to severe b/l renal disease
#Hyponatremia
-monitor
-mild
#anemia of chronic disease
#chronic thrombocytopenia
#MDS
-on reblozyl as outpatient
-hgb stable at 9.6, no active bleeding
-ctm
#hxt of severe s/p TAVR
#CAD s/p CABG/stents
#chronic diastolic HF
-asa, Plavix
-hold Lasix in setting of VINCENZO.
-strict I&O, daily weight
#HTN/HLD
-statin and metoprolol continued
#DM type 2
-sliding scale
-hold glipizide,Lantus 10units
#hypothyroidism
-levothyroxine continued
#DVT prophylaxis
-hsq
#CODE status
-full code
Total time spent on today's encounter was 51 minutes which included time spent in counseling the patient/family regarding diagnosis and treatment plan as listed above, goals of care, and symptom management. Case was discussed with nursing staff,
specialists, and care coordinators/case management. All labs and imaging personally reviewed by me. Remainder the time spent in detailed review of previous records, lab data, imaging, and other medical provider documentation.
Anticipated Discharge: 24 - 48 hours
Subjective/Interval History
-
Date of Service: June 12, 2025
No acute events overnight
Objective Data
-
Labs:
Laboratory Results
06/12/25
03:53
WBC 4.5 L
Hgb 8.1 L
Hct 29.3 L
Plt Count 83 L
Sodium 132 L
Potassium 3.7
Chloride 102
Carbon Dioxide 25
BUN 71 H
Creatinine 1.9 H
Glucose 155 H
Calcium 8.5
Vital Signs:
Vital Signs
Temp Pulse Resp BP Pulse Ox
97.9 F 78 18 125/67 98
06/12/25 12:12 06/12/25 12:12 06/12/25 12:12 06/12/25 07:30 06/12/25 12:12
I&O
06/11/25 06/12/25 06/13/25
06:59 06:59 06:59
Intake Total 700 / 700 480 / 480
Output Total 700 / 700 300 / 300
Balance 700 / 700 -220 / -220 -300 / -300
Review of Systems
-
History Source: Patient
All other systems: Not reviewed unless documented
Data Reviewed
-
Labs: Labs Reviewed by me
[2025-06-12 16:06] VITALS: BP 120/62
[2025-06-12 16:45] LABS: Glucose - Point of Care 189 mg/dl (70-99)
[2025-06-12] MEDS: LIPITOR 40 MG PO (17:10)
--- NOTE | 2025-06-12 17:19 | W.PN.CD ---
Today's Communication / Plan
-
no endocarditis on JULIOCESAR
plan for device extraction tomorrow
Impression / Plan
-
80-year-old woman with sigmoid coronary disease status post CABG and progressive obstructive coronary artery disease requiring PCI to [place] and bypass vessels, severe status post TAVR, persistent low EF 20% status post dual-chamber ICD, MDS,
HTN, HPL, insulin-dependent ICD, CKD 3, and history of subarachnoid hemorrhage and gout presented with discharge from ICD pocket with dehiscence of ICD wound
ICD infection
- Status post dual-chamber ICD on 02/28/2025
- Initial resolution of any ecchymosis and hematoma of the pocket
- Now presented with dehiscence and discharge from the ICD pocket.
- Pus was expressed from the pocket
- Currently on Ancef and vancomycin
-JULIOCESAR 06/12: no evidence of endocarditis
- Plan for extraction of the whole system on 06/13/2025
- Plan for LifeVest for the duration of antibiotics
- Once infection is cleared, plan for reimplant of ICD on the right side
Coronary disease
- Status post CABG and PCI's to mid vessel
- On aspirin, Plavix, Lipitor, metoprolol
Heart failure, chronic HFrEF
- Severe systolic dysfunction with LV EF of 20%.
- Status post dual-chamber ICD
- On GDMT maximally tolerated. Not able to tolerate afterload reduction with Entresto or [place] inhibitors due to hypotension. Continue Toprol XL. Takes jardiance at home.
- s/p TAVR
- no vegetation on JULIOCESAR
Other problems -treatment as per primary team
DM
CKD
Hypothyroidism
Physical Exam
Vital Signs/Labs
Vital Signs
Temp Pulse Resp BP Pulse Ox
97.9 F 78 18 125/67 99
06/12/25 16:05 06/12/25 12:12 06/12/25 16:05 06/12/25 07:30 06/12/25 16:05
06/11/25 06/12/25 06/13/25
06:59 06:59 06:59
Actual Weight 70.8 kg 71.6 kg
06/12/25 03:53
06/12/25 03:53
Magnesium 2.1 mg/dl (1.6-2.3) 06/10/25 18:38
Physical Exam
Constitutional: No acute distress and Comfortable
EENT: Moist mucous membranes
Cardiovascular: Rhythm & rate is regular, Pedal edema is absent, JVD pressure is normal and Systolic murmur present
Respiratory: Respiratory effort normal and Lungs clear to auscul.
Neuro/Psych: AO x 3
Data Reviewed
-
Date of Service: June 12, 2025
Labs: Labs Reviewed by me
[2025-06-12 18:37] VITALS: BP 110/56
--- NOTE | 2025-06-12 20:45 | PTCARENOTE ---
Pt was moved to CVICU per nursing supervisor records change.
--- NOTE | 2025-06-12 21:00 | PTCARENOTE ---
Assumed care of patient from IVU RN, report received bedside. Patient alert and oriented, Follows commands, moves all extermities. OOB to bathrooom and ambulating in room. oriented to unit, CHG bath completed and prep for surgery done.
Medications given per orders. Vital signs stable on room air, +1 edema in lower extremitiesLungs sound clear, +pulses, +BS, voiding without issue. Nursing assessment completed and in workflow.
[2025-06-12 21:10] VITALS: BP 116/103
[2025-06-12 21:42] VITALS: BMI 28.0
[2025-06-12 21:51] VITALS: BMI 28.2
[2025-06-13] MEDS: HEPARIN 5000 UNITS SC ×4 (00:05→22:30)
[2025-06-13 04:25] LABS: Blood Urea Nitrogen 65 mg/dl (7-17); Calcium 8.9 mg/dl (8.4-10.2); Carbon Dioxide 28 mmol/L (22-30); Chloride 102 mmol/L (98-107); Estimated Creatinine Clearance 19 ml/min; Glucose 159 mg/dl (70-99); Potassium 4.2 mmol/L (3.5-5.1); Sodium 134 mmol/L (135-145); eGFR 20.96
[2025-06-13 04:27] LABS: Hematocrit 31.0 % (37.0-47.0); Hemoglobin 8.5 g/dL (12.0-16.0); Mean Corp Hgb Conc. 27.4 g/dL (33.0-37.0); Mean Corpuscular Volume 80.9 fL (81.0-99.0); Platelet Count 89 10^3/uL (130-400); Red Cell Dist. Width 21.0 % (11.5-14.5)
[2025-06-13] MEDS: SYNTHROID 75 MCG PO (06:20)
--- NOTE | 2025-06-13 06:22 | PTCARENOTE ---
Patient had second CHG bath this morning, labs drawn and new PIV started in Right forarm #20.
--- NOTE | 2025-06-13 07:32 | W.PN.CD ---
Today's Communication / Plan
-
- ICD extraction today
Impression / Plan
-
80-year-old woman with sigmoid coronary disease status post CABG and progressive obstructive coronary artery disease requiring PCI to [place] and bypass vessels, severe status post TAVR, persistent low EF 20% status post dual-chamber ICD, MDS,
HTN, HPL, insulin-dependent ICD, CKD 3, and history of subarachnoid hemorrhage and gout presented with discharge from ICD pocket with dehiscence of ICD wound
ICD infection
- Status post dual-chamber ICD on 02/28/2025
- Initial resolution of any ecchymosis and hematoma of the pocket
- Now presented with dehiscence and discharge from the ICD pocket.
- Pus was expressed from the pocket
- Currently on Ancef and vancomycin
-JULIOCESAR 06/12: no evidence of endocarditis
- Plan for extraction of the whole system
- Plan for LifeVest for the duration of antibiotics
- Once infection is cleared, plan for reimplant of ICD on the right side
Coronary disease
- Status post CABG and PCI's to mid vessel
- On aspirin, Plavix, Lipitor, metoprolol
Heart failure, chronic HFrEF
- Severe systolic dysfunction with LV EF of 20%.
- Status post dual-chamber ICD
- On GDMT maximally tolerated. Not able to tolerate afterload reduction with Entresto or [place] inhibitors due to hypotension. Continue Toprol XL. Takes jardiance at home.
- s/p TAVR
- no vegetation on JULIOCESAR
Other problems -treatment as per primary team
DM
CKD
Hypothyroidism
Physical Exam
Vital Signs/Labs
Vital Signs
Temp Pulse Resp BP Pulse Ox
98.4 F 103 18 116/103 100
06/12/25 19:44 06/12/25 20:30 06/12/25 21:10 06/12/25 21:10 06/12/25 21:10
06/12/25 06/13/25 06/14/25
06:59 06:59 06:59
Actual Weight 71.6 kg 72.3 kg
06/13/25 03:30
06/13/25 03:30
Magnesium 2.1 mg/dl (1.6-2.3) 06/10/25 18:38
Physical Exam
Constitutional: No acute distress and Comfortable
EENT: Anicteric and Moist mucous membranes
Cardiovascular: Rhythm & rate is regular, Pedal edema is absent and JVD pressure is normal
Respiratory: Respiratory effort normal, Lungs clear to auscul. and Wheeze Absent
GI: Soft, Non tender and Normal bowel sounds
Neuro/Psych: Alert, Oriented, AO x 3 and Motor deficits absent
Other: Cardiac Device Site
Data Reviewed
-
Date of Service: June 13, 2025
Medical Decision Making: Reviewed Test Results, Test Interpretation and Review of Case with other Provider
EKG: Tracing Personally Visualized and interpreted
X-Ray/CT/US/MRI/NUC/PET: Image Personally Visualized and interpreted
Labs: Labs Reviewed by me
Old Records: Reviewed
[2025-06-13] MEDS: ANCEF 10 IV ×2 (07:55→20:17)
[2025-06-13 08:00] VITALS: BMI 28.2
--- NOTE | 2025-06-13 08:00 | PTCARENOTE ---
Assumed care of patient prev RN. Walking rounds completed. AAOx3. Sent to medical laboratory manager with chart and signed consent.
[2025-06-13] MEDS: NON-FORMULARY ITEM 1 DROP BOTH EYES ×2 (08:15→20:18)
--- NOTE | 2025-06-13 08:48 | W.PN.ID1 ---
Date of Service
Date of Service: June 13, 2025
Today's Communication
JULIOCESAR no evidence of endocarditis
s/p device extraction and cultures
Assessment / Plan
Probable ICD pocket infection
VINCENZO - improving
- blood cultures x2 are no growth to date
- cultures from the OR gram stain no organisms
- wound culture no growth to date - preliminary
- when device is removed please send for aerobic and anaerobic culture
- JULIOCESAR no evidence of endocarditis
- continue vancomycin and cefazolin at this time
Chief Complaint
-: Other (pacemaker pocket infection)
Subjective / Review of Systems
afebrile
bp stable
s/p device extraction today
Vital Signs / Physical Exam
Vital Signs
Vital Signs
Temp Pulse Resp BP Pulse Ox
98.4 F 103 18 116/103 100
06/12/25 19:44 06/12/25 20:30 06/12/25 21:10 06/12/25 21:10 06/12/25 21:10
Physical Exam
Constitutional: No Acute Distress
Cardiovascular: Regular Rate and S1/S2; Negative Murmur or Rub
Pulmonary: Clear and Symmetric; Negative Wheezes or Rales
Gastrointestinal: Soft, Non Tender, Non Distended and Normal Bowel Sounds
Skin: Warm and Dry; Negative Rash or Jaundice
Objective Data
Lab Data
Lab Results
06/13/25 03:30
06/13/25 03:30
Estimated Creat Clear 19 ml/min 06/13/25 03:30
Lactic Acid 1.6 mmol/L (0.7-2.0) 06/10/25 18:38
Total Bilirubin 0.9 mg/dl (0.2-1.3) 06/10/25 18:38
AST 23 U/L (14-36) 06/10/25 18:38
ALT 17 U/L (0-35) 06/10/25 18:38
Alkaline Phosphatase 104 U/L (38-126) 06/10/25 18:38
Most recent labs reviewed.
Micro Results:
06/10/25 22:22 Blood Culture - Preliminary
Blood/Venous No Growth in 48 hours- Final report to follow
06/10/25 22:22 Blood Culture - Preliminary
Blood/Venous No Growth in 48 hours- Final report to follow
06/11/25 14:46 Urine Culture - Final
Urine NO GROWTH
06/10/25 18:38 Wound Culture - Final
Surgical Wound No growth
Gram Stain - Final
06/11/25 00:18 MRSA Screen - Final
Nose No Methicillin Resistant Staphylococcus aureus isolated.
--- NOTE | 2025-06-13 08:52 | PHA.VAN.FU ---
Vancomycin Assessment / Plan
- Assessment
Renal Function: SCR Increasing
WBC's are: Stable
In the past 24 hrs, patient has been: Afebrile
Concomitant Antimicrobials: cefazolin
- Assessment - Therapeutic Drug Monitoring
Random Level: 18.9 - drawn ~15H after previous dose of 750mg
- Dosing Plan
Dosing by Level: Hold off on dosing today (patient with accumulation)
- Monitoring Plan
Random Level: 06/14 0600
- Follow Up
Pharmacy will continue to follow.
Vancomycin Follow UP
- -
Patient Age: 80
Patient Sex: Female
Vancomycin Day #: 3
Indication: Skin And Soft Tissue
Requesting Provider: Carlito Whitney / Dr. Lazo
Pertinent Antimicrobial Allergies:
no pertinent antibiotic allergies
Height / Weight:
Height 5 ft 3 in
Actual Weight 72.3 kg
Pertinent Past Medical History: cefazolin
- Vital Signs / Lab Results
Temp Pulse Resp BP Pulse Ox
98.4 F 103 18 116/103 100
06/12/25 19:44 06/12/25 20:30 06/12/25 21:10 06/12/25 21:10 06/12/25 21:10
Lab Results - Hematology
06/10/25 06/11/25 06/12/25
18:38 03:01 03:53
WBC 5.7 5.6 4.5 L
06/13/25
03:30
WBC 4.6 L
Lab Results - Chemistry
06/10/25 06/11/25 06/12/25
18:38 03:01 03:53
BUN 82 H 78 H 71 H
Creatinine 2.2 H 2.3 H 1.9 H
Estimated Creat Clear
Albumin 4.2
06/13/25
03:30
BUN 65 H
Creatinine 2.3 H
Estimated Creat Clear 19
Albumin
06/10/25
18:38
Lactic Acid 1.6
Microbiology Results
06/10/25 22:22 Blood Culture - Preliminary
Blood/Venous No Growth in 48 hours- Final report to follow
06/10/25 22:22 Blood Culture - Preliminary
Blood/Venous No Growth in 48 hours- Final report to follow
06/11/25 14:46 Urine Culture - Final
Urine NO GROWTH
06/10/25 18:38 Wound Culture - Final
Surgical Wound No growth
Gram Stain - Final
06/11/25 00:18 MRSA Screen - Final
Nose No Methicillin Resistant Staphylococcus aureus isolated.
Therapeutic Drug Monitoring
Random Vancomycin 18.9 ug/ml 06/13/25 03:30
[2025-06-13] MEDS: NOVOLOG FLEXPEN-LOW RESISTANCE SC (09:27)
--- NOTE | 2025-06-13 09:34 | ITS.CL.PN ---
[facility] - Procedure Note
Procedure
Procedure Note:
Extraction Procedure:
Extraction of ICD system including extraction of RV ICD lead
Ms. Eubanks is an 80 yrs old woman with ischemic cardiomyopathy, LVEF 25%, h/progressive obstructive coronary artery disease requiring PCI to [place] and bypass vessels, severe status post TAVR, persistent low EF 20% status post dual-chamber ICD,
MDS, HTN, HPL, insulin-dependent ICD, CKD 3, and history of subarachnoid hemorrhage and gout presented with discharge from ICD pocket with dehiscence of ICD wound with dual chamber ICD in situ is admitted with infected pocket and needs his ICD
system extracted out.
Indications:
Infected ICD system
Date of the Procedure: 06/13/2025
Pre-Operative Diagnosis: Infected ICD system
Post-Operative Diagnosis: Infected ICD system
Procedure Performed: Infected ICD system extraction with removal of RV ICD and atrial pacing lead.
Performing Physicians:
Mary Edmonds MD
Anesthesia:
See anesthesia records
Detailed Description of the Procedure:
Written informed consent was obtained from the patient after a full explanation of the risks and benefits of the procedure. The patient was brought to the lab in the fasting state. Prophylactic antibiotics were given prior to the start of the
procedure. Continuous electrocardiographic and hemodynamic monitoring was initiated.
The initial rhythm was normal sinus rhythm.
The ICD device was programmed to VVI 50. All the tachy-therapies were turned off.
General anesthesia with intubation and mechanical conventional ventilation used. Anesthesia staff performed intubation monitored the patient during case. The ventral torso was meticulously prepared with surgical scrub and allowed to dry with no
pooling. Sterile draping was applied to cover the operative field. The image intensifier was draped with a sterile bag and positioned over the patient's chest.
A surgical pause was performed in accordance with hospital regulations. Anesthesia service provided sedation as reported separately. Antibiotics administered IV for risk of bacterial colonization.
There was severe anemia noted pre-operative and blood transfusion was given pre-op to avoid any drop or hemodynamic compromise.
Pocket Exploration:
After infiltration with lidocaine, an incision was made in the left delto-pectoral groove over the previously implanted device. Using blunt dissection and electrocautery, the incision was carried down to the level of the device, being careful to
maintain adequate hemostasis. Fluoroscopy was performed with showed normal appearance of the existing lead during the procedure. The pocket noted to have pus in it. The aerobic and anaerobic cultures were obtained. The generator was removed from the
pocket. The lead was released from the scar tissue, and infected and fibrotic tissue was removed.
RV ICD lead extraction:
The RV lead was removed from the generator. The RV lead was imaged and was noted to be attached to the RV apex. The stylet was placed and able to go to the tip. The active anchoring mechanism was successfuly retrived with unscrewing the tip.
The lead was removed from the RV by traction and conter traction.
The lead and sheath were withdrawn from the venous system. Hemostasis at the venous entry site was obtained using a 2-0 Vicryl pursestring suture.
Atrial lead extraction:
The atrial lead was removed from the generator. A stylette was placed that was able to go to the right atrium but was not able to traverse the J. The atrial lead was unscrewed. With multiple attempts, the screw was able to withdraw into the lead.
Finally, the atrial lead fell down from the appendage and was removed from the body.
Pocket debridement:
There was frail tissue infected and was oozing blood and pus. The deep pocket and the tissue were also cleaned with Betadine. A Betadine soaked Kerlex was packed for debridement in the pocket and later removed to clean the pocket.
A diluted hydrogen peroxide solution was poured into the pocket and the surrounding infected tissues and the foam was cleaned with towels and the wound was then rinsed with antibiotics solution.
All the infected material was removed.
There was oozing of pus and blood in the pocket with fragile surrounding tissue. A FRANCISCA drain was placed in th pocket and the skin was closed using a 2-0 V loc suture.
Steri-strips and a sterile dressing were then applied.
Procedure End:
The procedure was tolerated well. A bandage was applied to the incision area to be removed in a day.
A pressure dressing was applied.
Anesthesia was reversed and the anesthesia staff extubated then observed the patient until the return of pre-sedation mental status. The patient was transferred to the recovery area.
Estimated Blood loss:
5 cc
Specimens Removed:
Deep pocket aerobic and anaerobic cultures were obtained..
Urine output:
None
Packs / Drains/ Tubes:
None
Instrument / Sponge Count Correct:
Yes
Complications of the Procedure:
None
Condition of Patient at Time of Transfer:
Hemodynamically stable with no neurological or vascular compromise.
Explanted Device information:
Explanted on
Generator: Medtronic [id number], SN# [id number]
RV ICD Lead: Medtronic [id number], SN# [id number]
RA Lead: Medtronic [id number], SN# [id number]
Summary:
Successful extraction of the ICD system including RV ICD lead and right atrial lead
Results/Recommendations:
1. Please follow up CXR
2. Please keep the defibrillator pads on and keep on Telemetry.
3. Continue antibiotics as per ID
4. LifeVest for 1 month
Mary Edmonds MD [facility]
Electrophysiology
[2025-06-13] MEDS: ZYLOPRIM 100 MG PO ×2 (10:24→20:17)
[2025-06-13] MEDS: TOPROL XL 50 MG PO (10:24)
[2025-06-13] MEDS: LOW STRENGTH ASPIRIN 81 MG PO (10:25)
[2025-06-13] MEDS: KCL 10 MEQ PO (10:25)
[2025-06-13] MEDS: PLAVIX 75 MG PO (10:25)
[2025-06-13] MEDS: SENOKOT-S 1 TABLET PO ×2 (10:25→20:17)
[2025-06-13] MEDS: TYLENOL 650 MG PO ×2 (12:09→22:29)
[2025-06-13 12:38] VITALS: BP 114/59
[2025-06-13 12:39] LABS: Glucose - Point of Care 226 mg/dl (70-99)
[2025-06-13] MEDS: NOVOLOG FLEXPEN-LOW RESISTANCE 2 UNITS SC (12:39)
[2025-06-13] MEDS: LANTUS 0.1 UNITS SC (12:40)
[2025-06-13 13:00] VITALS: BP 109/51
--- NOTE | 2025-06-13 13:49 | W.PN.HOSP.TC ---
Today's Communication/Plan
-
f/u cultures
lead extraction
resume lasix within 24 hours, monitor bmp
Assessment / Plan
Assessment / Plan
Constitutional: No Acute Distress
Cardiovascular: Regular Rate and S1/S2; Negative Murmur or Rub
Pulmonary: Clear and Symmetric; Negative Wheezes, Rales or Rhonchi
Gastrointestinal: Soft, Non Tender, Non Distended and Normal Bowel Sounds
Skin: Warm and Dry; Negative Rash or Jaundice
Wound: Other (small about 2 cm fistula with purulent drainage and erythema over the pacemaker)
#Probable ICD infection
IV ancef, Vanc continued
-JULIOCESAR - no endocarditis
- planned extraction
-F/u cultures
-ID, Cards involved
-wound culture sent from ER
-blood culture
-Tylenol prn for fever, and pain
#acute kidney injury v CKD stage 3a/hypokalemia on diuretics
-Likely cardiorenal
-can resume diuretics
-F/u Renal US - no hydro; moderate to severe b/l renal disease
-LR bolus again today
#Chronic HFrEF
-restart lasix tomorrow - monitoring BMP and fluid status
-BB
-jardiance
#Hyponatremia
-monitor
-mild
#anemia of chronic disease
#chronic thrombocytopenia
#MDS
-on reblozyl as outpatient
-hgb stable at 9.6, no active bleeding
-ctm
#hxt of severe s/p TAVR
#CAD s/p CABG/stents
#chronic diastolic HF
-asa, Plavix
-resume lasix tomorrow
-strict I&O, daily weight
#HTN/HLD
-statin and metoprolol continued
#DM type 2
-sliding scale
-hold glipizide,Lantus 10units
#hypothyroidism
-levothyroxine continued
#DVT prophylaxis
-hsq
#CODE status
-full code
Total time spent on today's encounter was 53 minutes which included time spent in counseling the patient/family regarding diagnosis and treatment plan as listed above, goals of care, and symptom management. Case was discussed with nursing staff,
specialists, and care coordinators/case management. All labs and imaging personally reviewed by me. Remainder the time spent in detailed review of previous records, lab data, imaging, and other medical provider documentation.
Anticipated Discharge: > 48 hours
Subjective/Interval History
-
Date of Service: June 13, 2025
no acute events overnight
Objective Data
-
Labs:
Laboratory Results
06/13/25
03:30
WBC 4.6 L
Hgb 8.5 L
Hct 31.0 L
Plt Count 89 L
Sodium 134 L
Potassium 4.2
Chloride 102
Carbon Dioxide 28
BUN 65 H
Creatinine 2.3 H
Glucose 159 H
Calcium 8.9
Vital Signs:
Vital Signs
Temp Pulse Resp BP Pulse Ox
98 F 60 18 108/50 97
06/13/25 12:31 06/13/25 12:31 06/13/25 10:30 06/13/25 10:24 06/13/25 12:31
I&O
06/12/25 06/13/25 06/14/25
06:59 06:59 06:59
Intake Total 480 / 480 150 / 150 120 / 120
Output Total 700 / 700 500 / 500
Balance -220 / -220 -350 / -350 120 / 120
Review of Systems
-
History Source: Patient
All other systems: Not reviewed unless documented
Data Reviewed
-
Diagnostic Radiology: Report Reviewed by me
Labs: Labs Reviewed by me
--- NOTE | 2025-06-13 14:42 | CM ---
Chart reviewed. Patient is independent of ADLS, lives with her in a [address], [facility], ambulates with a RW and also has a BSC. Patient went for an ICD extraction today, waiting on cultures to determine antibiotics. Patient agreeable to a
life vest. Plan is for the patient to return home with VN/life vest,/+/- IV antibiotics. CM to follow
--- NOTE | 2025-06-13 15:06 | PTCARENOTE ---
received from engineering lab technician post lead/ICD extraction/washout. Drowsy but oriented. NSR HR 60. 1AV block and BBB. 2Lnc. 98%. EKG done. VSS. L chest with presure dressing on and intact. will continue to monitor.
[2025-06-13] MEDS: NON-FORMULARY ITEM BOTH EYES ×4 (15:15→15:18)
[2025-06-13] MEDS: LIPITOR 40 MG PO (16:39)
[2025-06-13] MEDS: NOVOLOG FLEXPEN-LOW RESISTANCE 3 UNITS SC (16:40)
[2025-06-13 16:42] LABS: Glucose - Point of Care 289 mg/dl (70-99)
[2025-06-13 17:55] VITALS: BP 121/46
[2025-06-13 19:38] VITALS: BP 112/47
[2025-06-13 21:47] LABS: Glucose - Point of Care 290 mg/dl (70-99)
[2025-06-13 23:12] VITALS: BP 130/50
[2025-06-13] MEDS: TYLENOL 325 MG PO (23:47)
[2025-06-14] VITALS (7 sets, daily range): BP systolic 117–125; BP diastolic 52–99; BMI 28.7
[2025-06-14] MEDS: ULTRAM 25 MG PO (02:28)
[2025-06-14] MEDS: TYLENOL 1000 MG PO (03:31)
[2025-06-14 04:29] LABS: Hematocrit 27.5 % (37.0-47.0); Hemoglobin 7.8 g/dL (12.0-16.0); Mean Corp Hgb Conc. 28.4 g/dL (33.0-37.0); Mean Corpuscular Volume 77.7 fL (81.0-99.0); Platelet Count 84 10^3/uL (130-400); Red Cell Dist. Width 20.7 % (11.5-14.5)
[2025-06-14 04:42] LABS: Blood Urea Nitrogen 74 mg/dl (7-17); Calcium 8.5 mg/dl (8.4-10.2); Carbon Dioxide 23 mmol/L (22-30); Chloride 102 mmol/L (98-107); Estimated Creatinine Clearance 20 ml/min; Glucose 299 mg/dl (70-99); Magnesium 2.2 mg/dl (1.6-2.3); Potassium 4.6 mmol/L (3.5-5.1); Sodium 134 mmol/L (135-145); eGFR 22.11
--- NOTE | 2025-06-14 05:49 | PTCARENOTE ---
Pt transferred from CVICU to room 2250. Pt AAO x 4. VSS. Pt c/o left chest surgical site pain 6/10. Tylenol PRN and x 1 dose of tramadol given. Pain improved to 4/10.
[2025-06-14] MEDS: SYNTHROID 75 MCG PO ×2 (05:53→05:54)
[2025-06-14 07:36] LABS: Glucose - Point of Care 278 mg/dl (70-99)
[2025-06-14 08:15] LABS: Glucose - Point of Care 262 mg/dl (70-99)
--- NOTE | 2025-06-14 08:24 | PHA.VAN.FU ---
Vancomycin Assessment / Plan
- Assessment
Renal Function: Stable
In the past 24 hrs, patient has been: Afebrile
Concomitant Antimicrobials: cefazolin
- Assessment - Therapeutic Drug Monitoring
Random Level: 14 - drawn ~24.5H after previous level of 18.9
Calculated ke: 0.0122
Calculated half life (H): 57
- Dosing Plan
Dosing by Level: Re-dose today (Vanc 750mg)
patient received divided load of 2000mg 06/11 plus one dose of 750mg prior to 2 levels
likely not at steady state and may have additional accumulation
anticipate half-life will continue to increase and patient will require prolonged (>/= 72H) re-dosing interval
- Monitoring Plan
Random Level: 06/15 0600
- Follow Up
Pharmacy will continue to follow.
Vancomycin Follow UP
- -
Patient Age: 80
Patient Sex: Female
Vancomycin Day #: 4
Indication: Skin And Soft Tissue
Requesting Provider: Carlito Whitney / Dr. Lazo
Pertinent Antimicrobial Allergies:
no pertinent antibiotic allergies
Height / Weight:
Height 5 ft 3 in
Actual Weight 73.4 kg
Pertinent Past Medical History: cefazolin
- Vital Signs / Lab Results
Temp Pulse Resp BP Pulse Ox
97.6 F 65 20 122/60 99
06/14/25 07:21 06/14/25 06:15 06/14/25 07:21 06/14/25 03:37 06/14/25 07:21
Lab Results - Hematology
06/12/25 06/13/25 06/14/25
03:53 03:30 04:01
WBC 4.5 L 4.6 L 2.7 L
Lab Results - Chemistry
06/12/25 06/13/25 06/14/25
03:53 03:30 04:01
BUN 71 H 65 H 74 H
Creatinine 1.9 H 2.3 H 2.2 H
Estimated Creat Clear
Microbiology Results
06/10/25 22:22 Blood Culture - Preliminary
Blood/Venous No Growth in 72 hours- Final report to follow
06/10/25 22:22 Blood Culture - Preliminary
Blood/Venous No Growth in 72 hours- Final report to follow
06/13/25 08:21 Gram Stain - Preliminary
Chest - Left
06/11/25 14:46 Urine Culture - Final
Urine NO GROWTH
06/10/25 18:38 Wound Culture - Final
Surgical Wound No growth
Gram Stain - Final
06/11/25 00:18 MRSA Screen - Final
Nose No Methicillin Resistant Staphylococcus aureus isolated.
Therapeutic Drug Monitoring
Random Vancomycin 14.0 ug/ml 06/14/25 04:01
[2025-06-14] MEDS: NOVOLOG FLEXPEN-LOW RESISTANCE 3 UNITS SC ×2 (09:19→12:37)
[2025-06-14] MEDS: LANTUS 0.1 UNITS SC (09:20)
[2025-06-14] MEDS: ANCEF 10 IV (09:23)
[2025-06-14] MEDS: KCL 10 MEQ PO (09:24)
[2025-06-14] MEDS: FLUSH (NSS) 2 FLUSH IV (09:24)
[2025-06-14] MEDS: HEPARIN 5000 UNITS SC ×2 (09:25→16:25)
[2025-06-14] MEDS: SENOKOT-S 1 TABLET PO ×2 (09:26→16:25)
[2025-06-14] MEDS: PLAVIX 75 MG PO (09:26)
[2025-06-14] MEDS: TOPROL XL 50 MG PO (09:26)
[2025-06-14] MEDS: LOW STRENGTH ASPIRIN 81 MG PO (09:26)
[2025-06-14] MEDS: ZYLOPRIM 100 MG PO ×2 (09:26→19:52)
[2025-06-14] MEDS: NON-FORMULARY ITEM 1 DROP BOTH EYES ×2 (09:27→19:53)
--- NOTE | 2025-06-14 09:42 | W.PN.CD ---
Today's Communication / Plan
-
Pressure dressing removed. Extraction site looks good. Maintain FRANCISCA drain.
Continue cefazolin and vancomycin. Follow cultures.
IV Lasix
Impression / Plan
-
80-year-old woman with sigmoid coronary disease status post CABG and progressive obstructive coronary artery disease requiring PCI to [place] and bypass vessels, severe status post TAVR, persistent low EF 20% status post dual-chamber ICD, MDS,
HTN, HPL, insulin-dependent ICD, CKD 3, and history of subarachnoid hemorrhage and gout presented with discharge from ICD pocket with dehiscence of ICD wound
ICD infection
- Status post dual-chamber ICD on 02/28/2025. Initial resolution of any ecchymosis and hematoma of the pocket. Now presented with dehiscence and discharge from the ICD pocket.
- JULIOCESAR 06/12: no evidence of endocarditis
- Blood and wound cultures no growth
- S/p ICD extraction 06/13/25
- Currently on Ancef and vancomycin. ID following.
- Plan for LifeVest for the duration of antibiotics
- Once infection is cleared, plan for reimplant of ICD on the right side
VINCENZO on CKD
- Suspect volume overload given weight gain. Also has hyponatremia
- 80 IV Lasix BID
- If not improving, consider nephrology consult
Coronary disease
- Status post CABG and PCI's to mid vessel
- On aspirin, Plavix, Lipitor, metoprolol
Heart failure, chronic HFrEF
- Severe systolic dysfunction with LV EF of 20%.
- Status post dual-chamber ICD
- On GDMT maximally tolerated. Not able to tolerate afterload reduction with Entresto or [place] inhibitors due to hypotension. Continue Toprol XL. Takes jardiance at home.
- s/p TAVR
- no vegetation on JULIOCESAR
Other problems -treatment as per primary team
DM
CKD
Hypothyroidism
Subjective: Lots of pain in chest, arms, legs. No fevers overnight. No other CV complaints.
Telemetry: Sinus rhythm. No ectopy.
Physical Exam
Vital Signs/Labs
Vital Signs
Temp Pulse Resp BP Pulse Ox
97.6 F 70 20 123/52 99
06/14/25 07:21 06/14/25 08:30 06/14/25 07:21 06/14/25 07:20 06/14/25 07:21
06/13/25 06/14/25 06/15/25
06:59 06:59 06:59
Actual Weight 159 lb 6.307 oz 161 lb 13.109 oz
06/14/25 04:01
06/14/25 04:01
Magnesium 2.2 mg/dl (1.6-2.3) 06/14/25 04:01
Physical Exam
Constitutional: No acute distress and Comfortable
Cardiovascular: Rhythm & rate is regular, Pedal edema present (trace), S1S2 is normal and Murmur/rub/gallop absent
Respiratory: Respiratory effort normal and Lungs clear to auscul.
Neuro/Psych: AO x 3
Other: Cardiac Device Site (extraction site without erythema, swelling, induration, or fluctuance)
Data Reviewed
-
Date of Service: June 14, 2025
Medical Decision Making: Reviewed Test Results, Test Interpretation and Review of Case with other Provider
EKG: Tracing Personally Visualized and interpreted
Echo: Report Reviewed by me
X-Ray/CT/US/MRI/NUC/PET: Image Personally Visualized and interpreted
Labs: Labs Reviewed by me
[2025-06-14] MEDS: VANCOCIN 150 IV (09:44)
--- NOTE | 2025-06-14 09:48 | W.PN.ID1 ---
Date of Service
Date of Service: June 14, 2025
Today's Communication
continue vancomycin, stop cefazolin
follow OR cultures another day then deescalate to an oral regimen
Assessment / Plan
ICD pocket infection
VINCENZO
- wound culture no growth to date - preliminary
- JULIOCESAR no evidence of endocarditis
- blood cultures x2 are no growth to date
- MRSA screen negative
- cultures from the OR gram stain no organisms, no growth at 24 hours, prefer to follow another day and then could make a decision for oral therapies
- continue vancomycin at this time, stop cefazolin
Chief Complaint
-: Other (pacemaker pocket infection)
Subjective / Review of Systems
afebrile
bp stable
in good spirits
Vital Signs / Physical Exam
Vital Signs
Vital Signs
Temp Pulse Resp BP Pulse Ox
97.6 F 70 20 123/52 99
06/14/25 07:21 06/14/25 08:30 06/14/25 07:21 06/14/25 07:20 06/14/25 07:21
Physical Exam
Constitutional: No Acute Distress
Cardiovascular: Regular Rate and S1/S2; Negative Murmur or Rub
Pulmonary: Clear and Symmetric; Negative Wheezes or Rales
Gastrointestinal: Soft, Non Tender, Non Distended and Normal Bowel Sounds
Skin: Warm and Dry; Negative Rash or Jaundice
Wound: Other (dressing clean with scant strike through, dry, intact)
Objective Data
Lab Data
Lab Results
06/14/25 04:01
06/14/25 04:01
Estimated Creat Clear 20 ml/min 06/14/25 04:01
Lactic Acid 1.6 mmol/L (0.7-2.0) 06/10/25 18:38
Total Bilirubin 0.9 mg/dl (0.2-1.3) 06/10/25 18:38
AST 23 U/L (14-36) 06/10/25 18:38
ALT 17 U/L (0-35) 06/10/25 18:38
Alkaline Phosphatase 104 U/L (38-126) 06/10/25 18:38
Most recent labs reviewed.
Micro Results:
06/13/25 08:21 Anaerobic Culture - Preliminary
Chest - Left Culture pending. Anaerobic cultures are examined after 3
days incubation. Additional information to follow.
06/13/25 08:21 Wound Culture - Preliminary
Chest - Left No growth
Gram Stain - Preliminary
06/10/25 22:22 Blood Culture - Preliminary
Blood/Venous No Growth in 72 hours- Final report to follow
06/10/25 22:22 Blood Culture - Preliminary
Blood/Venous No Growth in 72 hours- Final report to follow
06/11/25 14:46 Urine Culture - Final
Urine NO GROWTH
06/10/25 18:38 Wound Culture - Final
Surgical Wound No growth
Gram Stain - Final
06/11/25 00:18 MRSA Screen - Final
Nose No Methicillin Resistant Staphylococcus aureus isolated.
--- NOTE | 2025-06-14 11:35 | CM ---
Addendum entered by Aminata uV 06/14/25 15:22:
[facility] declined referral. Telephone call to [facility] to make referral. Sent referral. Update Mrs. Eubanks regarding VNA Services.
Addendum entered by Aminata Vu 06/14/25 14:10:
Received call from Life Vest Liaison, [employer] wine sales representative will be here around 4:30 p.m. to fit her.
Original Note:
Reviewed chart. Mrs. Eubanks was transferred to IVU. Telephone call to Life Vest Liaison to make the referral. Sent the referral. Awaiting approval and when the Life Vest Instructor can fit her with the device. Met with Mrs. Eubanks to review
discharge plans. She states she is feeling okay and maybe able to go home soon. We reviewed the Life Vest. She states she had a Life Vest in the past. She is agreeable to the Life Vest again. Reviewed with her thet [employer] has a new vest
that is suppose to help with not having the skin break down. We also reviewed VND Serice and she is agreeable to [facility]. She has had them in the past. Telephone call to [facility] to make the referral. Referral
sent. Awaiting to see if they can accept referral. Prior to admission she resides with her spouse in a two story home with four steps to enter. She has a full flight of steps to get to bedroom/full bathroom. does not have a powder room on the
first floor. She is using a bedside commode since she is staying on the first floor since her PPM implant. Prior to admission she ambulates with a rolling walker. She has a rolling walker, bedside commode and transport wheelchair at home. She has
a prescription plan and uses [facility]. She has had [facility] in the past. Medical work-up in progress. The discharge plan is to return home with [facility] with her spouse and [facility] when medically
stable.
[2025-06-14] MEDS: LASIX 80 MG IV ×2 (11:37→16:25)
[2025-06-14 12:30] LABS: Glucose - Point of Care 271 mg/dl (70-99)
--- NOTE | 2025-06-14 14:26 | W.PN.HOSP.TC ---
Today's Communication/Plan
-
f/u cultures
iv lasix
vanc
Assessment / Plan
Assessment / Plan
Constitutional: No Acute Distress
Cardiovascular: Regular Rate and S1/S2; Negative Murmur or Rub
Pulmonary: Clear and Symmetric; Negative Wheezes, Rales or Rhonchi
Gastrointestinal: Soft, Non Tender, Non Distended and Normal Bowel Sounds
Skin: Warm and Dry; Negative Rash or Jaundice
Wound: Other (small about 2 cm fistula with purulent drainage and erythema over the pacemaker)
#Probable ICD infection, extracted 06/13
IV Vanc continued, discontinue cefazolin
-JULIOCESAR - no endocarditis
-F/u cultures
-ID, Cards involved
-wound culture sent from ER
-blood culture
-Tylenol prn for fever, and pain
#acute kidney injury v CKD stage 3a/hypokalemia on diuretics
-Likely cardiorenal
-can resume diuretics - IV Lasix
-F/u Renal US - no hydro; moderate to severe b/l renal disease
#Acute on Chronic HFrEF
-restart lasix - monitoring BMP and fluid status
-BB
-jardiance
#Hyponatremia
-monitor
-mild
#anemia of chronic disease
#chronic thrombocytopenia
#MDS
-on reblozyl as outpatient
-hgb stable at 9.6, no active bleeding
-ctm
#hxt of severe s/p TAVR
#CAD s/p CABG/stents
#chronic diastolic HF
-asa, Plavix
-resume lasix
-strict I&O, daily weight
#HTN/HLD
-statin and metoprolol continued
#DM type 2
-sliding scale
-hold glipizide,Lantus 10units
#hypothyroidism
-levothyroxine continued
#DVT prophylaxis
-hsq
#CODE status
-full code
Anticipated Discharge: 24 - 48 hours
Subjective/Interval History
-
Date of Service: June 14, 2025
Extraction 06/13
Objective Data
-
Labs:
Laboratory Results
06/14/25
04:01
WBC 2.7 L
Hgb 7.8 L
Hct 27.5 L
Plt Count 84 L
Sodium 134 L
Potassium 4.6
Chloride 102
Carbon Dioxide 23
BUN 74 H
Creatinine 2.2 H
Glucose 299 H
Calcium 8.5
Vital Signs:
Vital Signs
Temp Pulse Resp BP Pulse Ox
97.8 F 77 20 122/64 99
06/14/25 11:33 06/14/25 11:37 06/14/25 11:33 06/14/25 11:37 06/14/25 11:33
I&O
06/13/25 06/14/25 06/15/25
06:59 06:59 06:59
Intake Total 150 / 150 710 / 710 150 / 150
Output Total 500 / 500 35 / 35
Balance -350 / -350 675 / 675 150 / 150
Review of Systems
-
History Source: Patient
All other systems: Not reviewed unless documented
Data Reviewed
-
Diagnostic Radiology: Report Reviewed by me
Labs: Labs Reviewed by me
[2025-06-14 17:57] LABS: Glucose - Point of Care 223 mg/dl (70-99)
[2025-06-14] MEDS: LIPITOR 40 MG PO (18:14)
[2025-06-14] MEDS: NOVOLOG FLEXPEN-LOW RESISTANCE 2 UNITS SC (18:15)
[2025-06-14] MEDS: TYLENOL 650 MG PO (19:51)
[2025-06-14 21:19] LABS: Glucose - Point of Care 236 mg/dl (70-99)
[2025-06-15] MEDS: HEPARIN 5000 UNITS SC ×3 (01:27→21:01)
[2025-06-15] MEDS: TYLENOL 650 MG PO ×3 (02:43→21:00)
[2025-06-15 02:56] VITALS: BMI 28.2
[2025-06-15 02:58] VITALS: BP 116/53
[2025-06-15 03:57] LABS: Blood Urea Nitrogen 78 mg/dl (7-17); Calcium 9.1 mg/dl (8.4-10.2); Carbon Dioxide 24 mmol/L (22-30); Chloride 101 mmol/L (98-107); Estimated Creatinine Clearance 21 ml/min; Glucose 172 mg/dl (70-99); Potassium 3.8 mmol/L (3.5-5.1); Sodium 133 mmol/L (135-145); eGFR 24.79
[2025-06-15 04:03] LABS: Hematocrit 26.5 % (37.0-47.0); Hemoglobin 7.4 g/dL (12.0-16.0); Mean Corp Hgb Conc. 27.9 g/dL (33.0-37.0); Mean Corpuscular Volume 76.4 fL (81.0-99.0); Platelet Count 95 10^3/uL (130-400); Red Cell Dist. Width 20.8 % (11.5-14.5)
--- NOTE | 2025-06-15 04:57 | PTCARENOTE ---
Assumed care on pt at 1900, pt noted to have her life vest on, applied by [facility]'s staff. [employer] technical support was called and life vest removed. Aquacel dsg over extraction site intact with small old drainage, skin around dsg without erythema or
swelling. Pt continues to complain of pain from incision site andleft arm, tylenol given x2 with some effect. SR w/ 1AVB on the monitor, HR 70-80's. Pt voiding clear yellow without any issues, good output. FRANCISCA drain intact, 5cc of serosanguineous
drainage overnight. Call crowley within reach, POC ongoing.
[2025-06-15 08:10] VITALS: BP 128/68
[2025-06-15] MEDS: LANTUS 0.1 UNITS SC (08:13)
[2025-06-15] MEDS: SYNTHROID 75 MCG PO (08:14)
[2025-06-15] MEDS: ZYLOPRIM 100 MG PO ×2 (08:14→21:00)
[2025-06-15] MEDS: TOPROL XL 50 MG PO (08:14)
[2025-06-15] MEDS: KCL 10 MEQ PO (08:14)
[2025-06-15] MEDS: PLAVIX 75 MG PO (08:14)
[2025-06-15] MEDS: NON-FORMULARY ITEM 1 DROP BOTH EYES ×2 (08:15→21:01)
[2025-06-15] MEDS: LOW STRENGTH ASPIRIN 81 MG PO (08:15)
[2025-06-15] MEDS: LASIX 80 MG IV ×2 (08:15→15:54)
[2025-06-15] MEDS: SENOKOT-S 1 TABLET PO ×3 (08:15→22:05)
[2025-06-15] MEDS: NOVOLOG FLEXPEN-LOW RESISTANCE SC (08:19)
[2025-06-15 08:20] LABS: Glucose - Point of Care 127 mg/dl (70-99)
--- NOTE | 2025-06-15 08:55 | W.PN.CD ---
Today's Communication / Plan
-
IV diuresis today
Home lasix tomorrow
D/c likely tomorrow or late today
Impression / Plan
-
80-year-old woman with sigmoid coronary disease status post CABG and progressive obstructive coronary artery disease requiring PCI to [place] and bypass vessels, severe status post TAVR, persistent low EF 20% status post dual-chamber ICD, MDS,
HTN, HPL, insulin-dependent ICD, CKD 3, and history of subarachnoid hemorrhage and gout presented with discharge from ICD pocket with dehiscence of ICD wound
ICD infection
- Status post dual-chamber ICD on 02/28/2025. Initial resolution of any ecchymosis and hematoma of the pocket. Now presented with dehiscence and discharge from the ICD pocket.
- JULIOCESAR 06/12: no evidence of endocarditis
- Blood and wound cultures no growth
- S/p ICD extraction 06/13/25
- Currently on Ancef and vancomycin. ID following.
- Plan for LifeVest for the duration of antibiotics
- Once infection is cleared, plan for reimplant of ICD on the right side
VINCENZO on CKD
- Suspect volume overload given weight gain. Also has hyponatremia
- 80 IV Lasix BID
- last dose today
- resume home lasix tomorrow
Coronary disease
- Status post CABG and PCI's to mid vessel
- On aspirin, Plavix, Lipitor, metoprolol
Heart failure, chronic HFrEF
- Severe systolic dysfunction with LV EF of 20%.
- Status post dual-chamber ICD
- On GDMT maximally tolerated. Not able to tolerate afterload reduction with Entresto or GE[place]IA inhibitors due to hypotension. Continue Toprol XL. Takes jardiance at home.
- s/p TAVR
- no vegetation on JULIOCESAR
Other problems -treatment as per primary team
DM
CKD
Hypothyroidism
Subjective: Lots of pain in chest, arms, legs. No fevers overnight. No other CV complaints.
Telemetry: Sinus rhythm. No ectopy.
Physical Exam
Vital Signs/Labs
Vital Signs
Temp Pulse Resp BP Pulse Ox
97.8 F 89 18 128/68 99
06/15/25 08:15 06/15/25 08:30 06/15/25 08:15 06/15/25 08:10 06/15/25 08:15
06/14/25 06/15/25 06/16/25
06:59 06:59 06:59
Actual Weight 161 lb 13.109 oz 158 lb 15.253 oz
06/15/25 03:24
06/15/25 03:23
Magnesium 2.2 mg/dl (1.6-2.3) 06/14/25 04:01
Physical Exam
Constitutional: No acute distress and Comfortable
EENT: Anicteric
Cardiovascular: Rhythm & rate is regular
Respiratory: Respiratory effort normal and Lungs clear to auscul.
GI: Soft
Neuro/Psych: AO x 3
Data Reviewed
-
Date of Service: June 15, 2025
Medical Decision Making: Reviewed Test Results
EKG: Tracing Personally Visualized and interpreted (sr)
Echo: Report Reviewed by me
Labs: Labs Reviewed by me
--- NOTE | 2025-06-15 09:41 | PHA.VAN.FU ---
Vancomycin Assessment / Plan
- Assessment
WBC's are: WNL
In the past 24 hrs, patient has been: Afebrile
- Assessment - Therapeutic Drug Monitoring
Random Level: 17.1 ON 06.15 @0312 taken approx 17 hours after last dose
- Dosing Plan
Dosing by Level: Hold off on dosing today
- Monitoring Plan
No level(s) ordered at this time: random level ordered for 06.16@ 0600
- Follow Up
Pharmacy will continue to follow.
Vancomycin Follow UP
- -
Patient Age: 80
Patient Sex: Female
Vancomycin Day #: 5
Indication: Skin And Soft Tissue
Requesting Provider: Carlito Whitney / Dr. Lazo
Pertinent Antimicrobial Allergies:
no pertinent antibiotic allergies
Height / Weight:
Height 5 ft 3 in
Actual Weight 72.1 kg
Pertinent Past Medical History: cefazolin
- Vital Signs / Lab Results
Temp Pulse Resp BP Pulse Ox
97.8 F 89 18 128/68 99
06/15/25 08:15 06/15/25 08:30 06/15/25 08:15 06/15/25 08:10 06/15/25 08:15
Lab Results - Hematology
06/13/25 06/14/25 06/15/25
03:30 04:01 03:24
WBC 4.6 L 2.7 L 5.4
Lab Results - Chemistry
06/13/25 06/14/25 06/15/25
03:30 04:01 03:23
BUN 65 H 74 H 78 H
Creatinine 2.3 H 2.2 H 2.0 H
Estimated Creat Clear
Microbiology Results
06/10/25 22:22 Blood Culture - Preliminary
Blood/Venous No Growth in 4 days- Final report to follow
06/10/25 22:22 Blood Culture - Preliminary
Blood/Venous No Growth in 4 days- Final report to follow
06/13/25 08:21 Anaerobic Culture - Preliminary
Chest - Left Culture pending. Anaerobic cultures are examined after 3
days incubation. Additional information to follow.
06/13/25 08:21 Wound Culture - Preliminary
Chest - Left No growth
Gram Stain - Preliminary
Therapeutic Drug Monitoring
Random Vancomycin 17.1 ug/ml 06/15/25 03:12
--- NOTE | 2025-06-15 10:18 | W.PN.ID1 ---
Date of Service
Date of Service: June 15, 2025
Today's Communication
- start keflex and doxycycline for a two week total course 06/10-06/23
- stable for dc from ID perspective
Assessment / Plan
ICD pocket infection
VINCENZO - renally dose
- wound culture no growth to date
- JULIOCESAR no evidence of endocarditis
- blood cultures x2 are no growth to date
- MRSA screen negative
- start keflex and doxycycline for a two week total course 06/10-06/23
- stable for dc from ID perspective
Chief Complaint
-: Other (pacemaker pocket infection)
Subjective / Review of Systems
afebrile
bp stable
in good spirits
Vital Signs / Physical Exam
Vital Signs
Vital Signs
Temp Pulse Resp BP Pulse Ox
97.8 F 89 18 128/68 99
06/15/25 08:15 06/15/25 08:30 06/15/25 08:15 06/15/25 08:10 06/15/25 08:15
Physical Exam
Constitutional: No Acute Distress
Cardiovascular: Regular Rate and S1/S2; Negative Murmur or Rub
Pulmonary: Clear and Symmetric; Negative Wheezes or Rales
Gastrointestinal: Soft, Non Tender, Non Distended and Normal Bowel Sounds
Skin: Warm, Dry and Other (minimal strike through on the dressing); Negative Rash or Jaundice
Objective Data
Lab Data
Lab Results
06/15/25 03:24
06/15/25 03:23
Estimated Creat Clear 21 ml/min 06/15/25 03:23
Lactic Acid 1.6 mmol/L (0.7-2.0) 06/10/25 18:38
Total Bilirubin 0.9 mg/dl (0.2-1.3) 06/10/25 18:38
AST 23 U/L (14-36) 06/10/25 18:38
ALT 17 U/L (0-35) 06/10/25 18:38
Alkaline Phosphatase 104 U/L (38-126) 06/10/25 18:38
Most recent labs reviewed.
Micro Results:
06/10/25 22:22 Blood Culture - Preliminary
Blood/Venous No Growth in 4 days- Final report to follow
06/10/25 22:22 Blood Culture - Preliminary
Blood/Venous No Growth in 4 days- Final report to follow
06/13/25 08:21 Anaerobic Culture - Preliminary
Chest - Left Culture pending. Anaerobic cultures are examined after 3
days incubation. Additional information to follow.
06/13/25 08:21 Wound Culture - Preliminary
Chest - Left No growth
Gram Stain - Preliminary
06/11/25 14:46 Urine Culture - Final
Urine NO GROWTH
06/10/25 18:38 Wound Culture - Final
Surgical Wound No growth
Gram Stain - Final
06/11/25 00:18 MRSA Screen - Final
Nose No Methicillin Resistant Staphylococcus aureus isolated.
[2025-06-15] MEDS: VIBRAMYCIN 100 MG PO ×2 (10:51→21:00)
[2025-06-15 12:02] VITALS: BP 97/30
[2025-06-15 12:15] LABS: Glucose - Point of Care 208 mg/dl (70-99)
[2025-06-15] MEDS: NOVOLOG FLEXPEN-LOW RESISTANCE 2 UNITS SC (12:39)
--- NOTE | 2025-06-15 14:34 | W.PN.HOSP.TC ---
Today's Communication/Plan
-
Transition to p.o. antibiotics
Continue IV diuresis
Monitor BMP, hemoglobin
Assessment / Plan
Assessment / Plan
Constitutional: No Acute Distress
Cardiovascular: Regular Rate and S1/S2; Negative Murmur or Rub
Pulmonary: Clear and Symmetric; Negative Wheezes, Rales or Rhonchi
Gastrointestinal: Soft, Non Tender, Non Distended and Normal Bowel Sounds
Skin: Warm and Dry; Negative Rash or Jaundice
Wound: Other (small about 2 cm fistula with purulent drainage and erythema over the pacemaker)
#Probable ICD infection, extracted 06/13
IV Vanc continued, discontinue cefazolin�cultures unremarkable�transition to Keflex and doxycycline for 2-week course from 06/18 to 06/23
-JULIOCESAR - no endocarditis
-F/u cultures�no growth to date
-ID, Cards involved
-wound culture sent from ER
-blood culture
-Tylenol prn for fever, and pain
#acute kidney injury v CKD stage 3a/hypokalemia on diuretics
-Likely cardiorenal
-can resume diuretics - IV Lasix�anticipate transitioning over to p.o. Lasix tomorrow
-F/u Renal US - no hydro; moderate to severe b/l renal disease
#Acute on Chronic HFrEF
-restart lasix - monitoring BMP and fluid status
-BB
-jardiance
#Hyponatremia
-monitor
-mild
#anemia of chronic disease
#chronic thrombocytopenia
#MDS
-on reblozyl as outpatient, due for it on 06/18
- No obvious active bleeding noted
-ctm
#hxt of severe s/p TAVR
#CAD s/p CABG/stents
#chronic diastolic HF
-asa, Plavix
-resume lasix
-strict I&O, daily weight
#HTN/HLD
-statin and metoprolol continued
#DM type 2
-sliding scale
-hold glipizide,Lantus 10units
#hypothyroidism
-levothyroxine continued
#DVT prophylaxis
-hsq
#CODE status
-full code
Anticipated Discharge: Within 24 hours
Subjective/Interval History
-
Date of Service: June 15, 2025
No acute events overnight
Objective Data
-
Labs:
Laboratory Results
06/15/25 06/15/25
03:23 03:24
WBC 5.4
Hgb 7.4 L
Hct 26.5 L
Plt Count 95 L
Sodium 133 L
Potassium 3.8
Chloride 101
Carbon Dioxide 24
BUN 78 H
Creatinine 2.0 H
Glucose 172 H
Calcium 9.1
Vital Signs:
Vital Signs
Temp Pulse Resp BP Pulse Ox
98.2 F 72 18 97/30 97
06/15/25 12:09 06/15/25 13:45 06/15/25 12:09 06/15/25 12:02 06/15/25 12:09
I&O
06/14/25 06/15/25 06/16/25
06:59 06:59 06:59
Intake Total 710 / 710 1590 / 1590
Output Total 35 / 35 2165 / 2165 700 / 700
Balance 675 / 675 -575 / -575 -700 / -700
Review of Systems
-
History Source: Patient
All other systems: Not reviewed unless documented
Data Reviewed
-
Diagnostic Radiology: Report Reviewed by me
Labs: Labs Reviewed by me
[2025-06-15] MEDS: KEFLEX 500 MG PO ×2 (15:54→22:05)
[2025-06-15] MEDS: NOVOLOG FLEXPEN-LOW RESISTANCE 1 UNITS SC (16:52)
[2025-06-15 16:54] LABS: Glucose - Point of Care 184 mg/dl (70-99)
[2025-06-15] MEDS: LIPITOR 40 MG PO (16:55)
[2025-06-15 19:14] VITALS: BP 124/51
[2025-06-15 22:07] VITALS: BP 113/51
[2025-06-15 22:09] LABS: Glucose - Point of Care 189 mg/dl (70-99)
[2025-06-16] MEDS: TYLENOL 650 MG PO (02:33)
[2025-06-16 03:14] VITALS: BP 103/49
--- NOTE | 2025-06-16 03:20 | PTCARENOTE ---
Received pt at change of shift, OOB sitting on recliner chair, denies cp or SOB. SR/SB w/ 1AVB on the monitor, HR 55-70's. FRANCISCA drain intact, small serosanguineous output overnight. Aquacel dsg intact. Tylenol prn given for incision pain and gen
discomfort, some + effect. Call crowley within reach, POC ongoing.
[2025-06-16 04:24] VITALS: BMI 28.0
[2025-06-16 04:27] LABS: Hematocrit 26.4 % (37.0-47.0); Hemoglobin 7.5 g/dL (12.0-16.0); Mean Corp Hgb Conc. 28.4 g/dL (33.0-37.0); Mean Corpuscular Volume 77.2 fL (81.0-99.0); Platelet Count 85 10^3/uL (130-400); Red Cell Dist. Width 20.8 % (11.5-14.5)
[2025-06-16 04:46] LABS: Blood Urea Nitrogen 89 mg/dl (7-17); Calcium 9.1 mg/dl (8.4-10.2); Carbon Dioxide 26 mmol/L (22-30); Chloride 101 mmol/L (98-107); Estimated Creatinine Clearance 20 ml/min; Glucose 147 mg/dl (70-99); Potassium 4.0 mmol/L (3.5-5.1); Sodium 132 mmol/L (135-145); eGFR 23.38
[2025-06-16] MEDS: SYNTHROID 75 MCG PO (05:55)
[2025-06-16 07:25] VITALS: BP 116/72
[2025-06-16 08:02] LABS: Glucose - Point of Care 133 mg/dl (70-99)
[2025-06-16] MEDS: SENOKOT-S 1 TABLET PO (08:03)
[2025-06-16] MEDS: PLAVIX 75 MG PO (08:03)
[2025-06-16] MEDS: KEFLEX 500 MG PO (08:03)
[2025-06-16] MEDS: VIBRAMYCIN 100 MG PO (08:03)
[2025-06-16] MEDS: NOVOLOG FLEXPEN-LOW RESISTANCE SC (08:03)
[2025-06-16] MEDS: LANTUS 0.1 UNITS SC (08:03)
[2025-06-16] MEDS: NON-FORMULARY ITEM 1 DROP BOTH EYES (08:04)
[2025-06-16] MEDS: KCL 10 MEQ PO (08:04)
[2025-06-16] MEDS: ZYLOPRIM 100 MG PO (08:04)
[2025-06-16] MEDS: HEPARIN 5000 UNITS SC (08:04)
[2025-06-16] MEDS: LOW STRENGTH ASPIRIN 81 MG PO (08:04)
[2025-06-16] MEDS: TOPROL XL 50 MG PO (08:04)
--- NOTE | 2025-06-16 11:06 | W.PN.HOSP.TC ---
Addendum entered and electronically signed by Lyle Bailey MD 06/16/25 13:02:
[id number]
Original Note:
Today's Communication/Plan
-
Antibiotic course
Follow-up with EP as scheduled
Monitor CBC, BMP outpatient
Assessment / Plan
Assessment / Plan
Constitutional: No Acute Distress
Cardiovascular: Regular Rate and S1/S2; Negative Murmur or Rub
Pulmonary: Clear and Symmetric; Negative Wheezes, Rales or Rhonchi
Gastrointestinal: Soft, Non Tender, Non Distended and Normal Bowel Sounds
Skin: Warm and Dry; Negative Rash or Jaundice
Wound: Other (small about 2 cm fistula with purulent drainage and erythema over the pacemaker)
#Probable ICD infection, extracted 06/13
IV Vanc continued, discontinue cefazolin�cultures unremarkable�transition to Keflex and doxycycline for 2-week course from 06/18 to 06/23
-JULIOCESAR - no endocarditis
-F/u cultures�no growth to date
-ID, Cards involved
-wound culture sent from ER
-blood culture
-Tylenol prn for fever, and pain
# CKD stage 3a/hypokalemia on diuretics
-Likely cardiorenal
-can resume diuretics - IV Lasix�anticipate transitioning over to p.o. Lasix today, home dose
-F/u Renal US - no hydro; moderate to severe b/l renal disease
#Acute on Chronic HFrEF
-restart lasix - monitoring BMP and fluid status
-BB
-jardiance
#Hyponatremia
-monitor
-mild
#anemia of chronic disease
#chronic thrombocytopenia
#MDS
-on reblozyl as outpatient, due for it on 06/18
- No obvious active bleeding noted
-ctm
#hxt of severe s/p TAVR
#CAD s/p CABG/stents
#chronic diastolic HF
-asa, Plavix
-resume lasix
-strict I&O, daily weight
#HTN/HLD
-statin and metoprolol continued
#DM type 2
-sliding scale
-hold glipizide,Lantus 10units
#hypothyroidism
-levothyroxine continued
#DVT prophylaxis
-hsq
#CODE status
-full code
More than 30 minutes spent in discharge including
Final examination of the patient
Summarizing hospital stay
Instructions for continuing care to all relevant caregivers
Preparation of discharge records, prescriptions, and referral forms
Total time spent (in minutes): 36
Anticipated Discharge: Today
Subjective/Interval History
-
Date of Service: June 16, 2025
No acute events overnight
Objective Data
-
Labs:
Laboratory Results
06/16/25
03:48
WBC 4.9
Hgb 7.5 L
Hct 26.4 L
Plt Count 85 L
Sodium 132 L
Potassium 4.0
Chloride 101
Carbon Dioxide 26
BUN 89 H
Creatinine 2.1 H
Glucose 147 H
Calcium 9.1
Vital Signs:
Vital Signs
Temp Pulse Resp BP Pulse Ox
97.7 F 104 20 116/72 98
06/16/25 07:25 06/16/25 07:30 06/16/25 07:25 06/16/25 07:25 06/16/25 07:25
I&O
06/15/25 06/16/25 06/17/25
06:59 06:59 06:59
Intake Total 1590 / 1590 240 / 240
Output Total 2165 / 2165 2485 / 2485 500 / 500
Balance -575 / -575 -2245 / -2245 -500 / -500
Review of Systems
-
History Source: Patient
All other systems: Not reviewed unless documented
Data Reviewed
-
Diagnostic Radiology: Report Reviewed by me
Labs: Labs Reviewed by me
--- NOTE | 2025-06-16 11:08 | W.DS.TRANS ---
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
-
Discharge Instructions:
Sleep Apnea Risk Intermediate
Discharge Diagnosis/Procedures Probable ICD infection, extracted 06/13
Acute on Chronic HFrEF
Diet Low Cholesterol,Diabetic, Carb Controlled,
Restrict fluids to 48 oz
Driving Restrictions No driving for 24 hours
Blood Work CBC and BMP in 5 to 7 days with PCP
Instructions:
Stand-Alone Forms: DC Inst - Implanted Device
Changes to Home Medications: Yes
Discharge Medications:
DC Medications w/original date entered in [facility]
ascorbic acid (vitamin C) 1,000 mg tablet (Vitamin C) 500 mg PO DAILY Supplement 09/03/20
aspirin 81 mg chewable tablet 81 mg PO DAILY Blood clot prevention/tx 09/03/20
glucosamine sulfate dipotassium Cl 500 mg-chondroitin 400 mg capsule (Glucosamine Sulfate 2 KCL-Chondroitin) 1,200 mg BID Supplement 09/03/20
ketorolac 0.5 % eye drops 1 drp BOTH EYES BID Eye Condition 09/06/20
atorvastatin 40 mg tablet 40 mg PO QPM 09/11/20
clopidogrel 75 mg tablet 75 mg PO DAILY 09/11/20
allopurinol 100 mg tablet 200 mg PO BID Gout 09/10/24
levothyroxine 50 mcg tablet (Synthroid) 75 mcg PO DIRECTED Thyroid 09/10/24
insulin glargine 100 unit/mL subcutaneous solution (Lantus U-100 Insulin) 10 unit SC DAILY Diabetes 10/08/24
metoprolol succinate 25 mg tablet,extended release 24 hr 50 mg PO DAILY Heart Disease/Condition 10/08/24
potassium chloride 20 mEq tablet,extended release(part/cryst) (Klor-Con M) 10 meq PO DAILY Supplement 10/08/24
luspatercept-aamt 75 mg subcutaneous solution (Reblozyl) 84 mg SC Q3W Anemia 10/15/24
calcium 500 mg tablet 1,000 mg PO DAILY Supplement 11/07/24
furosemide 40 mg tablet 80 mg PO DAILY Fluid Retention/Swelling 11/07/24
glipizide 2.5 mg tablet, extended release 24 hr 2.5 mg PO DIRECTED Diabetes 11/07/24
senna-docusate sodium tablet 2 tab PO DAILY Constipation 11/07/24
vitamin I27-lpomodh B1 1 PO QPM Supplement 11/07/24
zinc 25 mg tablet 25 mg PO DAILY Supplement 11/07/24
acetaminophen 325 mg tablet 650 mg (2 x 325 mg) PO Q4HPRN PRN MARTIN, mild pain, or fever >101F #0 tabs 11/10/24
Jardiance DAILY Diabetes 06/11/25
cholecalciferol (vitamin D3) 1,000 units DAILY Supplement 06/11/25
pantoprazole 40 mg DAILY Gastrointestinal Issue 06/11/25
cephalexin 500 mg capsule 500 mg PO TID 9 days #27 caps 06/16/25
doxycycline hyclate 100 mg capsule 100 mg PO Q12 9 days #18 caps 06/16/25
Home Medication Changes
cephalexin 500 mg capsule 500 mg PO TID 9 days #27 caps 06/16/25
doxycycline hyclate 100 mg capsule 100 mg PO Q12 9 days #18 caps 06/16/25
Pending Results: No
[2025-06-16 11:18] VITALS: BP 107/47
[2025-06-16] MEDS: LASIX 80 MG PO (11:55)
[2025-06-16 12:01] LABS: Glucose - Point of Care 172 mg/dl (70-99)
[2025-06-16] MEDS: NOVOLOG FLEXPEN-LOW RESISTANCE 1 UNITS SC (12:01)
--- NOTE | 2025-06-16 13:15 | W.PN.CD ---
Today's Communication / Plan
-
Stop IV diuretics
Resume p.o. diuretics
Has follow-up scheduled with Dr. Edmonds this upcoming week
Impression / Plan
-
80-year-old woman with sigmoid coronary disease status post CABG and progressive obstructive coronary artery disease requiring PCI to [place] and bypass vessels, severe status post TAVR, persistent low EF 20% status post dual-chamber ICD, MDS,
HTN, HPL, insulin-dependent ICD, CKD 3, and history of subarachnoid hemorrhage and gout presented with discharge from ICD pocket with dehiscence of ICD wound
ICD infection
- Status post dual-chamber ICD on 02/28/2025. Initial resolution of any ecchymosis and hematoma of the pocket. Now presented with dehiscence and discharge from the ICD pocket.
- JULIOCESAR 06/12: no evidence of endocarditis
- Blood and wound cultures no growth
- S/p ICD extraction 06/13/25
- Now on p.o. antibiotics
- Plan for LifeVest for the duration of antibiotics
- Once infection is cleared, plan for reimplant of ICD on the right side
VINCENZO on CKD
- Now off IV diuretic
- Creatinine relatively stable
- resume home lasix tomorrow
Coronary disease
- Status post CABG and PCI's to mid vessel
- On aspirin, Plavix, Lipitor, metoprolol
Heart failure, chronic HFrEF
- Severe systolic dysfunction with LV EF of 20%.
- Status post dual-chamber ICD
- On GDMT maximally tolerated. Not able to tolerate afterload reduction with Entresto or [place] inhibitors due to hypotension. Continue Toprol XL. Takes jardiance at home.
- s/p TAVR
- no vegetation on JULIOCESAR
Other problems -treatment as per primary team
DM
CKD
Hypothyroidism
Subjective: Continues to have soreness in her chest and legs
Physical Exam
Vital Signs/Labs
Vital Signs
Temp Pulse Resp BP Pulse Ox
97.8 F 104 20 116/72 99
06/16/25 11:19 06/16/25 07:30 06/16/25 11:19 06/16/25 07:25 06/16/25 11:19
06/15/25 06/16/25 06/17/25
06:59 06:59 06:59
Actual Weight 158 lb 15.253 oz 158 lb 4.67 oz
06/16/25 03:48
06/16/25 03:48
Magnesium 2.2 mg/dl (1.6-2.3) 06/14/25 04:01
Physical Exam
Constitutional: No acute distress and Comfortable
EENT: Anicteric
Cardiovascular: Rhythm & rate is regular and Pedal edema is absent
Respiratory: Respiratory effort normal and Lungs clear to auscul.
GI: Soft
Neuro/Psych: AO x 3
Data Reviewed
-
Date of Service: June 16, 2025
EKG: Tracing Personally Visualized and interpreted (Sinus rhythm)
Echo: Report Reviewed by me
Labs: Labs Reviewed by me
== END 2025-06-16 14:57 | disposition home or self-care (01) | DRG 265 ==
LOC: IVU 21:16
PROVIDERS: Internal Medicine; Nurse Practitioner Family; Physician Assistant; Registered Nurse; ADMITTING PHYSICIAN Hospitalist; ATTENDING PHYSICIAN Internal Medicine; CONSULT PHYSICIAN Student in an Organized Health Care Education/Training Program; EMERGENCY PHYSICIAN Student in an Organized Health Care Education/Training Program; FAMILY PHYSICIAN Internal Medicine; OTHER PHYSICIAN Internal Medicine Cardiovascular Disease
PROC: B24BZZ4 Ultrasonography of Heart with Aorta, Transesophageal (ICD-10-PCS; 2025-06-12)
PROC: 0JPT0PZ Removal of Cardiac Rhythm Related Device from Trunk Subcutaneous Tissue and Fascia, Open Approach (ICD-10-PCS; 2025-06-13)
PROC: 0JPT0FZ Removal of Subcutaneous Defibrillator Lead from Trunk Subcutaneous Tissue and Fascia, Open Approach (ICD-10-PCS; 2025-06-13)
DX: T82.7XXA Infection and inflammatory reaction due to other cardiac and vascular devices, implants and grafts, initial encounter (principal); I50.43 Acute on chronic combined systolic (congestive) and diastolic (congestive) heart failure; I13.0 Hypertensive heart and chronic kidney disease with heart failure and stage 1 through stage 4 chronic kidney disease, or unspecified chronic kidney disease; N17.9 Acute kidney failure, unspecified; E87.1 Hypo-osmolality and hyponatremia; Y71.2 Prosthetic and other implants, materials and accessory cardiovascular devices associated with adverse incidents; N18.31 Chronic kidney disease, stage 3a; D46.9 Myelodysplastic syndrome, unspecified; I25.10 Atherosclerotic heart disease of native coronary artery without angina pectoris; Z95.1 Presence of aortocoronary bypass graft; Z95.810 Presence of automatic (implantable) cardiac defibrillator; I44.0 Atrioventricular block, first degree; I49.3 Ventricular premature depolarization; E87.6 Hypokalemia; T50.1X5A Adverse effect of loop [high-ceiling] diuretics, initial encounter; Z53.20 Procedure and treatment not carried out because of patient's decision for unspecified reasons; Z87.891 Personal history of nicotine dependence; Z88.5 Allergy status to narcotic agent; Z91.041 Radiographic dye allergy status; Z88.8 Allergy status to other drugs, medicaments and biological substances; Z79.890 Hormone replacement therapy; Z79.899 Other long term (current) drug therapy; Z79.82 Long term (current) use of aspirin; Z79.4 Long term (current) use of insulin; Z79.84 Long term (current) use of oral hypoglycemic drugs; Z85.118 Personal history of other malignant neoplasm of bronchus and lung; E11.22 Type 2 diabetes mellitus with diabetic chronic kidney disease; D63.1 Anemia in chronic kidney disease; Z95.2 Presence of prosthetic heart valve; E03.9 Hypothyroidism, unspecified; E11.40 Type 2 diabetes mellitus with diabetic neuropathy, unspecified; E78.00 Pure hypercholesterolemia, unspecified; I25.5 Ischemic cardiomyopathy; J44.9 Chronic obstructive pulmonary disease, unspecified; Z79.02 Long term (current) use of antithrombotics/antiplatelets; Z91.81 History of falling; Z95.5 Presence of coronary angioplasty implant and graft
CPT/HCPCS: 71045; 71046; 76770; 80048; 80053; 80202; 81003; 81015; 82962; 83036; 83605; 83735; 85025; 85027; 86850; 86900; 86901; 87040; 87070; 87075; 87086; 87205; 93005; 93312; 93320; 93325; 96361; 96375; 99285

== ENCOUNTER 2025-07-11 09:52 | Day surgery (SDC) | payer MEDICARE, BC, SELFPAY ==
[2025-07-11] VITALS (11 sets, daily range): BP systolic 95–146; BP diastolic 40–67; BMI 28.2
[2025-07-11 11:33] LABS: Glucose - Point of Care 135 mg/dl (70-99)
--- NOTE | 2025-07-11 13:45 | W.ICD.CONTRA ---
Post ICD/ZINC PLATE CUTTER-D
-
History of CA?: Yes
LV Function
Left ventricular function study result?: Ejection Fraction </= 35%
ACEI/ARB/ARNI
Patient already on ACEI/ARB/ARNI: No
ACEI/ARB/ARNI Contraindication: Hypotension
Beta-Juli
Patient already on Beta Juli: Yes
--- NOTE | 2025-07-11 16:11 | PTCARENOTE ---
Patient received from electronic lab technician. AO x3. Right chest wall pressure dressing with immobilizer, 4x4 gauze left anterior chest. NSR 1st degree HB, BBB, +2 pedal and ankle edema. Oxygen weaned to 2 liters NC 98%, denies shortness of breath. Offered bedpan
or purwick, patient refused, assisted to the commode, wears a pad, some stress incontinence. Tolerating sips PO. Call crowley in reach
[2025-07-11 16:30] LABS: Glucose - Point of Care 164 mg/dl (70-99)
[2025-07-11] MEDS: GLUCOTROL XL (EXTENDED RELEASE) 5 MG PO (17:22)
[2025-07-11] MEDS: GLUCOTROL XL (EXTENDED RELEASE) PO (17:23)
[2025-07-11] MEDS: NOVOLOG FLEXPEN-MODERATE RESISTANCE 1 UNITS SC (17:23)
[2025-07-11] MEDS: LIPITOR 40 MG PO (17:23)
--- NOTE | 2025-07-11 18:03 | PTCARENOTE ---
Patient assisted to the bathroom to void. Portable CXR done
[2025-07-11] MEDS: ZYLOPRIM 100 MG PO (20:09)
[2025-07-11 21:52] LABS: Glucose - Point of Care 164 mg/dl (70-99)
[2025-07-11] MEDS: ANCEF 5 IV (21:53)
[2025-07-12] VITALS (11 sets, daily range): BP systolic 93–130; BP diastolic 39–58; BMI 28.9
--- NOTE | 2025-07-12 00:53 | PTCARENOTE ---
Received patient from ava RN at 1900, resting comfortably in bed. AAOx3, denies pain. L chest with dry gauze dressing, R chest with foam dressing- both c/d/i. RUE immobilizer in place. NSR with 1st degree HB on tele. +2 LE edema. Lungs clear on
RA. Patient ambulating to BR with x1 assistance. Vital sign trends in flowsheets. Assessment unchanged from previous. Care ongoing.
[2025-07-12] MEDS: TYLENOL 650 MG PO ×3 (01:22→10:43)
[2025-07-12] MEDS: SENOKOT-S 1 TABLET PO ×2 (01:32→08:13)
[2025-07-12 02:14] LABS: Blood Urea Nitrogen 50 mg/dl (7-17); Calcium 8.5 mg/dl (8.4-10.2); Carbon Dioxide 32 mmol/L (22-30); Chloride 99 mmol/L (98-107); Estimated Creatinine Clearance 25 ml/min; Glucose 146 mg/dl (70-99); Hematocrit 29.5 % (37.0-47.0); Hemoglobin 8.0 g/dL (12.0-16.0); Magnesium 1.9 mg/dl (1.6-2.3); Mean Corp Hgb Conc. 27.1 g/dL (33.0-37.0); Mean Corpuscular Volume 80.4 fL (81.0-99.0); Platelet Count 62 10^3/uL (130-400); Potassium 3.4 mmol/L (3.5-5.1); Red Cell Dist. Width 20.7 % (11.5-14.5); Sodium 134 mmol/L (135-145); eGFR 30.13
[2025-07-12] MEDS: ANCEF 5 IV (06:21)
[2025-07-12] MEDS: SYNTHROID 150 MCG PO (06:21)
[2025-07-12 07:38] LABS: Glucose - Point of Care 139 mg/dl (70-99)
[2025-07-12] MEDS: NOVOLOG FLEXPEN-MODERATE RESISTANCE SC (08:12)
[2025-07-12] MEDS: GLUCOTROL XL (EXTENDED RELEASE) 2.5 MG PO (08:12)
[2025-07-12] MEDS: PLAVIX 75 MG PO (08:12)
[2025-07-12] MEDS: LANTUS 0.1 UNITS SC (08:13)
[2025-07-12] MEDS: LOW STRENGTH ASPIRIN 81 MG PO (08:13)
[2025-07-12] MEDS: FARXIGA 10 MG PO (08:13)
[2025-07-12] MEDS: KCL 10 MEQ PO (08:13)
[2025-07-12] MEDS: ZYLOPRIM 100 MG PO (08:13)
[2025-07-12] MEDS: PROTONIX 40 MG PO (08:13)
[2025-07-12 08:26] LABS: Glycohemoglobin (HgbA1c) 7.8 % (4.0-5.9)
[2025-07-12] MEDS: TOPROL XL 50 MG PO (09:39)
--- NOTE | 2025-07-12 10:18 | W.PN.CARDCBS ---
Addendum entered and electronically signed by Zaid Garza MD 07/12/25 17:53:
I saw and evaluated the patient, and I provided the substantive portion of the medical decision making. I reviewed and agree with the note by LLOYD Springer and it accurately reflects our care. I personally performed the medical decision making
of the this encounter and my assessment and plan is below: Doing well after ICD implant. Pain is being controlled. Tele fine, site good. CXR good. Home today.
Original Note:
Today's Communication / Plan
-
post R sided reimplant ICD post infection/extraction
Inc check cbc then continue cardiac care with Dr. Cosby
Impression / Plan
-
Primary care physician: Adarsh Campbell MD
Primary ribbon tier: Benjy Cosby MD
80-year-old woman with coronary disease status post CABG and progressive obstructive coronary artery disease requiring PCI to platinum and bypass vessels, severe status post TAVR, persistent low EF 20% status post dual-chamber ICD, MDS, HTN, HPL,
insulin-dependent ICD, CKD 3, and history of subarachnoid hemorrhage and gout had infected ICD pocked and extraction of device on 06/13/25, completed abx and presents today for new R sided ICD implant
#ICD infection/with Extraction 06/13/25 - prior dual-chamber ICD on 02/28/2025, post reimplantation of DC ICD Right sided 07/11/25
site stable, CXR no PTX, leads in good position
moderate incisional pain improved after pressure dressing removed
Activity restrictions reviewed
incision check in 1 week at [facility]
then continue cardiac care with Dr. Cosby
#CKD 3b - Cr stable, no IV contrast used
#Coronary disease with prior CABG and PCI's to mid vessel - On aspirin, Plavix, Lipitor, metoprolol
#Heart failure, chronic HFrEF -- Severe systolic dysfunction with LV EF of 20%.
- On GDMT maximally tolerated. Not able to tolerate afterload reduction with Entresto or [place] inhibitors due to hypotension. Continue Toprol XL. Takes Jardiance at home.
# s/p TAVR
#DM2
#Hypothyroidism
#RLL cancer post XRT
#Gout
Progress Note - [facility] [employer]
Subjective
Date of Service: July 12, 2025
moderate inc pain, generalized pain of chest (chronic), denies sob
Objective
Labs:
07/12/25 01:37
07/12/25 01:37
Labs
Hgb 8.0 g/dL (12.0-16.0) L 07/12/25 01:37
Hct 29.5 % (37.0-47.0) L 07/12/25 01:37
Plt Count 62 10^3/uL (130-400) L 07/12/25 01:37
Sodium 134 mmol/L (135-145) L 07/12/25 01:37
Potassium 3.4 mmol/L (3.5-5.1) L 07/12/25 01:37
BUN 50 mg/dl (7-17) H 07/12/25 01:37
Creatinine 1.7 mg/dL (0.6-1.0) H 07/12/25 01:37
Glucose 146 mg/dl (70-99) H 07/12/25 01:37
Vital Signs and I&O:
Vital Signs
Temp Pulse Resp BP Pulse Ox
98.3 F 71 20 130/43 99
07/12/25 07:34 07/12/25 09:39 07/12/25 07:34 07/12/25 09:39 07/12/25 07:34
Vital Signs
Temp Pulse Resp BP Pulse Ox
98.3 F 71 20 130/43 99
07/12/25 07:34 07/12/25 09:39 07/12/25 07:34 07/12/25 09:39 07/12/25 07:34
Intake & Output
07/10/25 07/11/25 07/12/25/22/25
06:59 06:59 06:59 06:59
Intake Total 680 / 680
Output Total 550 / 550
Balance 130 / 130
Physical Exam
Physical Exam
NAD, AOx3
S1, S2, RRR
CTAB, non labored, no wheeze
SNTND bsx4
R CW dressing c/d/i no HT, pressure dressing removed
--- NOTE | 2025-07-12 10:24 | PTCARENOTE ---
Assumed care at 0700. Patient AO x3, mildly anxious, in chair. Pressure dressing removed from right chest, small scant drainage on Aquacel dressing and bruising to her chest. Left chest wall steri strips intact replaced sterile dressing. NSR with
some occasional A paced beats and PVC's. Walking to the bathroom using rolling walker. Using call [facility] for assistance
[2025-07-12] MEDS: LASIX 80 MG PO (10:55)
[2025-07-12 12:03] LABS: Glucose - Point of Care 207 mg/dl (70-99)
[2025-07-12] MEDS: ULTRAM 25 MG PO (12:31)
[2025-07-12] MEDS: NOVOLOG FLEXPEN-MODERATE RESISTANCE 3 UNITS SC (12:36)
--- NOTE | 2025-07-12 15:36 | PTCARENOTE ---
Patient discharged to home. IV and telemetry removed. Patient able to dress herself and toilet herself with her rolling walker. Precautions reviewed with patient and she verbalized understanding. Provided a sling for comfort at discharge.
Instruction reviewed with patient and spouse. Prescription provided for Ultram for pain. Escorted to main lobby and assisted into car
--- NOTE | 2025-07-12 16:58 | W.DS.TRANS ---
DC Summary - [employer] Support
-
Discharge Instructions:
Sleep Apnea Risk Low
Discharge Diagnosis/Procedures ICD implant
Diet Low Cholesterol,2 Gram Sodium,Diabetic, Carb
Controlled
Driving Restrictions No driving for 1 week
Bathing Restrictions OK to Shower
Instructions:
Stand-Alone Forms: DC Inst - Implanted Device
Changes to Home Medications: No
Discharge Medications:
DC Medications w/original date entered in [facility]
ascorbic acid (vitamin C) 1,000 mg tablet (Vitamin C) 500 mg PO DAILY Supplement 09/03/20
aspirin 81 mg chewable tablet 81 mg PO DAILY Blood clot prevention/tx 09/03/20
glucosamine sulfate dipotassium Cl 500 mg-chondroitin 400 mg capsule (Glucosamine Sulfate 2 KCL-Chondroitin) 1,200 mg BID Supplement 09/03/20
ketorolac 0.5 % eye drops 1 drp BOTH EYES BID Eye Condition 09/06/20
atorvastatin 40 mg tablet 40 mg PO QPM 09/11/20
clopidogrel 75 mg tablet 75 mg PO DAILY 09/11/20
allopurinol 100 mg tablet 100 mg PO BID Gout 09/10/24
levothyroxine 50 mcg tablet (Synthroid) 75 mcg PO DIRECTED Thyroid 09/10/24
insulin glargine 100 unit/mL subcutaneous solution (Lantus U-100 Insulin) 10 unit SC DAILY Diabetes 10/08/24
metoprolol succinate 25 mg tablet,extended release 24 hr 50 mg PO DAILY Heart Disease/Condition 10/08/24
potassium chloride 20 mEq tablet,extended release(part/cryst) (Klor-Con M) 10 meq PO DAILY Supplement 10/08/24
luspatercept-aamt 75 mg subcutaneous solution (Reblozyl) 84 mg SC Q3W Anemia 10/15/24
calcium 500 mg tablet 1,000 mg PO DAILY Supplement 11/07/24
furosemide 40 mg tablet 80 mg PO DAILY Fluid Retention/Swelling 11/07/24
glipizide 2.5 mg tablet, extended release 24 hr 2.5 mg PO DIRECTED Diabetes 11/07/24
senna-docusate sodium tablet 2 tab PO DAILY Constipation 11/07/24
vitamin [id number] B1 1 tab PO QPM Supplement 11/07/24
zinc 25 mg tablet 25 mg PO DAILY Supplement 11/07/24
acetaminophen 325 mg tablet 650 mg (2 x 325 mg) PO Q4HPRN PRN MARTIN, mild pain, or fever >101F #0 tabs 11/10/24
Jardiance 10 mg PO DAILY Diabetes 06/11/25
cholecalciferol (vitamin D3) 1,000 units DAILY Supplement 06/11/25
pantoprazole 40 mg DAILY Gastrointestinal Issue 06/11/25
tramadol 25 mg tablet 25 mg PO Q6H PRN Pain #1 tab 07/12/25
Home Medication Changes
Pending Results: No
--- NOTE | 2025-07-12 17:03 | CM ---
pt prev indep, lives with her husb in a 2 story home. no dc planning needs or dme's. plan is for dc to home when medically stable
== END 2025-07-12 15:29 | disposition home or self-care (01) ==
LOC: CATH 09:52
PROVIDERS: Nurse Practitioner Adult Health; ATTENDING PHYSICIAN Internal Medicine Cardiovascular Disease; FAMILY PHYSICIAN Internal Medicine; OTHER PHYSICIAN Student in an Organized Health Care Education/Training Program
DX: I13.0 Hypertensive heart and chronic kidney disease with heart failure and stage 1 through stage 4 chronic kidney disease, or unspecified chronic kidney disease (principal); E11.22 Type 2 diabetes mellitus with diabetic chronic kidney disease; N18.32 Chronic kidney disease, stage 3b; I50.42 Chronic combined systolic (congestive) and diastolic (congestive) heart failure; E03.9 Hypothyroidism, unspecified; Z79.890 Hormone replacement therapy; Z79.02 Long term (current) use of antithrombotics/antiplatelets; Z79.82 Long term (current) use of aspirin; Z79.899 Other long term (current) drug therapy; Z79.84 Long term (current) use of oral hypoglycemic drugs; Z79.4 Long term (current) use of insulin; Z87.891 Personal history of nicotine dependence; Z85.118 Personal history of other malignant neoplasm of bronchus and lung; Z92.3 Personal history of irradiation; I25.10 Atherosclerotic heart disease of native coronary artery without angina pectoris; Z95.5 Presence of coronary angioplasty implant and graft; I35.0 Nonrheumatic aortic (valve) stenosis; Z95.2 Presence of prosthetic heart valve; I44.0 Atrioventricular block, first degree; M10.9 Gout, unspecified; Z88.5 Allergy status to narcotic agent; Z91.041 Radiographic dye allergy status; Z95.1 Presence of aortocoronary bypass graft
CPT/HCPCS: 33249; 71045; 80048; 82962; 83036; 83735; 85027; 93005; C1721; C1777; C1892; C1898